=== PATIENT | male | born 1945 | race Caucasian/White ===

== ENCOUNTER 2023-08-09 07:34 | Inpatient (IN) | payer MEDICARE, OTHER ==
--- NOTE | 2023-08-09 07:54 | ED ---
General Adult HPI - General Chief complaint: GI Bleed Stated complaint: GI Bleed Time Seen by Provider: 08/09/23 07:39 Source: patient, EMS, RN notes reviewed Mode of arrival: EMS Limitations: no limitations - History of Present Illness Initial comments: Patient is an 78-year-old male [facility] for coffee-ground emesis. Patient states onset of symptoms was today. Patient has nausea and vomiting, approximately 8 times. Patient states this was dark. Staff at [facility] was concern for coffee-ground emesis and possibly a clot. No known history of similar symptoms previously. Patient denies taking any blood thinners. Patient denies abdominal pain. - Related Data Allergies Allergy/AdvReac Type Severity Reaction Status Date / Time peanut AdvReac Anaphylaxis Verified 08/09/23 07:51 Review of Systems ROS Statement: Those systems with pertinent positive or pertinent negative responses have been documented in the HPI. ROS Other: All systems not noted in ROS Statement are negative. Constitutional: Denies: fever Eyes: Denies: eye pain ENT: Denies: ear pain Respiratory: Denies: cough Cardiovascular: Denies: chest pain Gastrointestinal: Reports: as per HPI Musculoskeletal: Denies: back pain Past Medical History Past Medical History: Hypertension Additional Past Medical History / Comment(s): Parkinsons, CKD History of Any Multi-Drug Resistant Organisms: None Reported Past Surgical History: No Surgical Hx Reported Smoking Status: Former smoker Past Alcohol Use History: None Reported General Exam Limitations: no limitations General appearance: alert, in no apparent distress Head exam: Present: normocephalic Eye exam: Present: normal appearance ENT exam: Present: normal oropharynx Neck exam: Present: normal inspection Respiratory exam: Present: normal lung sounds bilaterally Cardiovascular Exam: Present: regular rate, normal rhythm GI/Abdominal exam: Present: soft. Absent: tenderness Extremities exam: Present: normal inspection Neurological exam: Present: alert Psychiatric exam: Present: flat affect Skin exam: Present: normal color Course Vital Signs 08/09/23 08/09/23 08/09/23 07:39 07:42 08:00 Temperature 97.8 F Pulse Rate 96 96 90 Respiratory 18 20 18 Rate Blood Pressure 163/99 135/76 135/76 O2 Sat by Pulse 90 L 91 L 96 Oximetry 08/09/23 09:00 Temperature Pulse Rate 91 Respiratory 20 Rate Blood Pressure 128/65 O2 Sat by Pulse 97 Oximetry Medical Decision Making - Medical Decision Making Was pt. sent in by a medical professional or institution ([facility] Scott, EPIC CUPID ANALYST, urgent care, hospital, or penitentiary...) When possible be specific @ -Patient does present from nursing facility Did you speak to anyone other than the patient for history (EMS, parent, family, police, friend...)? What history was obtained from this source @ -I did speak with family over the phone and patient is normal care however will remain DNR. Did you review nursing and triage notes (agree or disagree)? Why? @ -I reviewed and agree with nursing and triage notes Were old charts reviewed (outside hosp., previous admission, EMS record, old EKG, old radiological studies, urgent care reports/EKG's, penitentiary records)? Report findings @ -Chart reviewed from nursing facility Differential Diagnosis (chest pain, altered mental status, abdominal pain women, abdominal pain men, vaginal bleeding, weakness, fever, dyspnea, syncope, headache, dizziness, GI bleed, back pain, seizure, CVA, palpatations, mental health, musculoskeletal)? @ -MDM differential GI hemorrhage MDI differential GI Bleed: Esophageal varices, aortoenteric fistula, Ofelia-Jordan, gastritis, peptic ulcer disease, diverticulosis, inflammatory bowel disease, hemorrhoids, fissure, colitis, malignancy, Meckels diverticulum, this is not meant to be an all- inclusive list. EKG interpreted by me (3pts min.). @ -As above X-rays interpreted by me (1pt min.). @ -Chest x-ray shows right lower lobe infiltrate and increased air in the stomach CT interpreted by me (1pt min.). @ -None done U/S interpreted by me (1pt. min.). @ -None done What testing was considered but not performed or refused? (CT, X-rays, U/S, labs)? Why? @ -None What meds were considered but not given or refused? Why? @ -None Did you discuss the management of the patient with other professionals (radha apodaca i.e. [facility] Scott, EPIC CUPID ANALYST, lab, RT, psych nurse, certified social workers in health care, construction driver, teacher, forest officer, catalytic case operator)? Give summary @ -Case was discussed with Dr. De La Fuente who will consult. Case was also discussed with Dr. Ashley who will admit his patient Was smoking cessation discussed for >3mins.? @ -No Was critical care preformed (if so, how long)? @ -No Were there social determinants of health that impacted care today? How? (Homelessness, low income, unemployed, alcoholism, drug addiction, transportat ion, low edu. Level, literacy, decrease access to med. care, correction, rehab)? @ -No Was there de-escalation of care discussed even if they declined (Discuss DNR or withdrawal of care, Hospice)? DNR status @ -No What co-morbidities impacted this encounter? (DM, HTN, Smoking, COPD, CAD, Cancer, CVA, ARF, Chemo, Hep., AIDS, mental health diagnosis, sleep apnea, morbid obesity)? @ -None Was patient admitted / discharged? Hospital course, mention meds given and route, prescriptions, significant lab abnormalities, going to OR and other pertinent info. @ -Patient presents with coffee-ground emesis. Patient will be admitted with surgical consult. Appearance of pneumonia on chest x-ray. Blood culture lactic acid and IV antibiotics all ordered. Rogers orders written. Undiagnosed new problem with uncertain prognosis? @ -No Drug Therapy requiring intensive monitoring for toxicity (Heparin, Nitro, Insulin, Cardizem)? @ -No Were any procedures done? @ -No Diagnosis/symptom? @ -GI hemorrhage, pneumonia Acute, or Chronic, or Acute on Chronic? @ -Acute, acute Uncomplicated (without systemic symptoms) or Complicated (systemic symptoms)? @ -Default Side effects of treatment? @ -No Exacerbation, Progression, or Severe Exacerbation? @ -No Poses a threat to life or bodily function? How? (Chest pain, USA, GA, pneumonia, PE, COPD, DKA, ARF, appy, cholecystitis, CVA, Diverticulitis, Homicidal, Suicidal, threat to staff... and all critical care pts) @ -Threat to blood loss and pulmonary function - Lab Data Result diagrams: 08/09/23 08:05 08/09/23 08:05 Lab Results 08/09/23 08/09/23 08/09/23 Range/Units 08:00 08:05 08:05 WBC 12.1 H (3.8-10.6) k/uL RBC 4.54 (4.30-5.90) m/uL Hgb 12.5 L (13.0-17.5) gm/dL Hct 40.8 (39.0-53.0) % MCV 90.0 (80.0-100.0) fL MCH 27.6 (25.0-35.0) pg MCHC 30.6 L (31.0-37.0) g/dL RDW 13.5 (11.5-15.5) % Plt Count 247 (150-450) k/uL MPV 8.6 Neutrophils % 92 % Lymphocytes % 3 % Monocytes % 4 % Eosinophils % 0 % Basophils % 0 % Neutrophils # 11.1 H (1.3-7.7) k/uL Lymphocytes # 0.4 L (1.0-4.8) k/uL Monocytes # 0.5 (0-1.0) k/uL Eosinophils # 0.0 (0-0.7) k/uL Basophils # 0.0 (0-0.2) k/uL Hypochromasia Slight PT 10.6 (10.0-12.5) sec INR 1.0 (<1.2) APTT 26.0 (22.0-30.0) sec Sodium (137-145) mmol/L Potassium (3.5-5.1) mmol/L Chloride (98-107) mmol/L Carbon Dioxide (22-30) mmol/L Anion Gap mmol/L BUN (9-20) mg/dL Creatinine (0.66-1.25) mg/dL Est GFR (CKD-EPI)AfAm (>60 ml/min/1.73 sqM) Est GFR (CKD-EPI)NonAf (>60 ml/min/1.73 sqM) Glucose (74-99) mg/dL Calcium (8.4-10.2) mg/dL Total Bilirubin (0.2-1.3) mg/dL AST (17-59) U/L ALT (4-49) U/L Alkaline Phosphatase (38-126) U/L Total Protein (6.3-8.2) g/dL Albumin (3.5-5.0) g/dL Gastric Occult Blood (Negative) Blood Type B Positive Blood Type Confirm Blood Type Recheck No Previous Record Bld Type Recheck Status CABO Indicated Antibody Screen NEGATIVE Spec Expiration Date 08/12/2023 - 2305 08/09/23 08/09/23 08/09/23 Range/Units 08:05 08:05 08:30 WBC (3.8-10.6) k/uL RBC (4.30-5.90) m/uL Hgb (13.0-17.5) gm/dL Hct (39.0-53.0) % MCV (80.0-100.0) fL MCH (25.0-35.0) pg MCHC (31.0-37.0) g/dL RDW (11.5-15.5) % Plt Count (150-450) k/uL MPV Neutrophils % % Lymphocytes % % Monocytes % % Eosinophils % % Basophils % % Neutrophils # (1.3-7.7) k/uL Lymphocytes # (1.0-4.8) k/uL Monocytes # (0-1.0) k/uL Eosinophils # (0-0.7) k/uL Basophils # (0-0.2) k/uL Hypochromasia PT (10.0-12.5) sec INR (<1.2) APTT (22.0-30.0) sec Sodium 141 (137-145) mmol/L Potassium 4.9 (3.5-5.1) mmol/L Chloride 109 H (98-107) mmol/L Carbon Dioxide 27 (22-30) mmol/L Anion Gap 5 mmol/L BUN 22 H (9-20) mg/dL Creatinine 0.68 (0.66-1.25) mg/dL Est GFR (CKD-EPI)AfAm >90 (>60 ml/min/1.73 sqM) Est GFR (CKD-EPI)NonAf >90 (>60 ml/min/1.73 sqM) Glucose 126 H (74-99) mg/dL Calcium 8.6 (8.4-10.2) mg/dL Total Bilirubin 0.8 (0.2-1.3) mg/dL AST 32 (17-59) U/L ALT 17 (4-49) U/L Alkaline Phosphatase 90 (38-126) U/L Total Protein 6.8 (6.3-8.2) g/dL Albumin 4.2 (3.5-5.0) g/dL Gastric Occult Blood Positive (Negative) Blood Type Blood Type Confirm B Positive Blood Type Recheck Bld Type Recheck Status Antibody Screen Spec Expiration Date Disposition Clinical Impression: Gastrointestinal hemorrhage, Pneumonia Disposition: ADMITTED IP TO THIS HOSP Condition: Serious Is patient prescribed a controlled substance at d/c from ED?: No Referrals: Han Bueno MD [Primary Care Provider] - 1-2 days Time of Disposition: 09:21
--- NOTE | 2023-08-09 08:39 | XR ---
EXAMINATION TYPE: XR chest 1V portable DATE OF EXAM: 08/09/2023 COMPARISON: None INDICATION: Pain TECHNIQUE: Single frontal view of the chest is obtained. FINDINGS: The heart size is mildly prominent. The pulmonary vasculature is normal. Mild infiltrate at the right base. Correlate for atelectasis or pneumonia. Follow-up is recommended. Stomach may be distended with air IMPRESSION: 1. Right lower lobe infiltrate. Correlate for pneumonia. 2. The stomach appears to be distended with air. Imaging can be performed as clinically indicated.
[2023-08-09 08:42] LABS: ALT 17 U/L (4-49); AST 32 U/L (17-59); African American GFR (CKD) >90 (>60 ml/min/1.73 sqM); Albumin 4.2 g/dL (3.5-5.0); Alkaline Phosphatase 90 U/L (38-126); Anion Gap 5 mmol/L; Blood Urea Nitrogen 22 mg/dL (9-20); Calcium 8.6 mg/dL (8.4-10.2); Carbon Dioxide 27 mmol/L (22-30); Chloride 109 mmol/L (98-107); Glucose 126 mg/dL (74-99); Non-African American GFR(CKD) >90 (>60 ml/min/1.73 sqM); Sodium 141 mmol/L (137-145); Total Bilirubin 0.8 mg/dL (0.2-1.3); Total Protein 6.8 g/dL (6.3-8.2)
[2023-08-09 08:44] LABS: Basophils % (A) 0 %; Eosinophils % (A) 0 %; HCT 40.8 % (39.0-53.0); HGB 12.5 gm/dL (13.0-17.5); Hypochromasia Slight; Lymphocytes # (A) 0.4 k/uL (1.0-4.8); Lymphocytes % (A) 3 %; MCH 27.6 pg (25.0-35.0); MCHC 30.6 g/dL (31.0-37.0); Mean Platelet Volume 8.6; Monocytes # (A) 0.5 k/uL (0-1.0); Monocytes % (A) 4 %; Neutrophils # (A) 11.1 k/uL (1.3-7.7); Neutrophils % (A) 92 %; Platelet Count 247 k/uL (150-450); RBC 4.54 m/uL (4.30-5.90); RDW 13.5 % (11.5-15.5); WBC 12.1 k/uL (3.8-10.6)
[2023-08-09] MEDS: SODIUM CHLORIDE 0.9% 1,000 ML IV STA (08:48)
[2023-08-09] MEDS: PANTOPRAZOLE 40 MG/10 ML VIAL IVP STA (08:48)
[2023-08-09 08:51] LABS: Prothrombin Time 10.6 sec (10.0-12.5)
[2023-08-09 08:59] LABS: Potassium 4.9 mmol/L (3.5-5.1)
[2023-08-09] MEDS ORDERED: PNEUMONIA PROTOCOL UTILIZED 1 EACH MISC PO PRN (09:17)
[2023-08-09 09:42] LABS: Amylase 61 U/L (30-110); Lipase 131 U/L (23-300)
[2023-08-09] MEDS: PANTOPRAZOLE 40 MG/10 ML VIAL IVP SCH (10:59)
[2023-08-09] MEDS: SODIUM CHLORIDE 0.9% 1,000 ML IV SCH (11:01)
[2023-08-09] MEDS: AZITHROMYCIN 500 MG in SODIUM CHLORIDE 0.9% 250 ML IVPB STA (11:02)
--- NOTE | 2023-08-09 11:03 | P.CON ---
Consult Note - . Consult date: 08/09/23 Assessment/Plan:: Patient is an 78-year-old male present to the emergency department from residential for coffee-ground emesis. Patient states onset of symptoms was today. Patient has nausea and vomiting, approximately 8 times. Patient states this was dark. Staff at residential was concern for coffee-ground emesis and possibly a clot. No known history of similar symptoms previously. Patient denies taking any blood thinners. Patient denies abdominal pain. Review of Systems ROS Statement: Those systems with pertinent positive or pertinent negative responses have been documented in the HPI. ROS Other: All systems not noted in ROS Statement are negative. Constitutional: Denies: fever Eyes: Denies: eye pain ENT: Denies: ear pain Respiratory: Denies: cough Cardiovascular: Denies: chest pain Gastrointestinal: Reports: as per HPI Musculoskeletal: Denies: back pain Past Medical History Past Medical History: Hypertension Additional Past Medical History / Comment(s): Parkinsons, CKD History of Any Multi-Drug Resistant Organisms: None Reported Past Surgical History: No Surgical Hx Reported Smoking Status: Former smoker Past Alcohol Use History: None Reported General Exam Limitations: no limitations General appearance: alert, in no apparent distress Head exam: Present: normocephalic Eye exam: Present: normal appearance ENT exam: Present: normal oropharynx Neck exam: Present: normal inspection Respiratory exam: Present: normal lung sounds bilaterally Cardiovascular Exam: Present: regular rate, normal rhythm GI/Abdominal exam: Present: soft. Absent: tenderness Extremities exam: Present: normal inspection Neurological exam: Present: alert Psychiatric exam: Present: flat affect Skin exam: Present: normal color 78 year old male with GI Bleed -Hgb stable. Continue to monitor H/H -Recommend Protonix BID -Will follow in case patient should need endoscopy
--- NOTE | 2023-08-09 15:30 | P.HPIM ---
History of Present Illness H&P Date: 08/09/23 Chief Complaint: Gastrointestinal bleed, intractable nausea vomiting. HISTORY OF PRESENT ILLNESS: 78-year-old who became a new patient seen him at [facility] long-term for the last few weeks with active medical history of Parkinson disease, hypertension, severe osteoarthritis, chronic kidney disease, BPH who also had severe teina pedis and teina of the nail for the last few years. Patient has been doing well up till this morning woke up and had nausea and vomiting over a time for coffee- ground emesis could not stop and become more symptomatic with lightheadedness and dizziness was having slight abdominal pain but no diarrhea with it with the severity of the symptom and coming to the emergency department where was seen and evaluated his CBC shows hemoglobin of 12.5 compared to his baseline his white blood cells mildly elevated, stomach slightly distended but no sign of obstruction rest of his labs including lactic acid lipase and amylase were normal his Hemoccult was positive influenza COVID and RSV were negative. Gener al surgery was called and agreed to do backup for medicine for GI bleed patient be admitted to the hospital CBC to be done every 6-8 hours watch for any more actively antinausea medication will be given might run flat abdominal x-ray to make sure does not have any small bowel obstruction. REVIEW OF SYSTEMS: CONSTITUTIONAL: Well-developed no acute respiratory distress. EYES: No icterus sclerae, no conjunctivitis. EARS, NOSE, MOUTH, THROAT, and FACE: No sore throat, lymphadenopathy, carotid bruits or deformity. RESPIRATORY: No SOB cough or wheezes. CARDIOVASCULAR: No CP, Palpitation, PND, Orthopnea, or angina. GASTROINTESTINAL: Slight abdominal distention with nausea and vomiting no diarrhea positive coffee-ground emesis with no active upper GI bleed. GENITOURINARY: Negative for Hematuria or UTI, no kidney stones. INTEGUMENT/BREAST: Negative for any muscular injury with mild osteoarthritis.. HEMATOLOGIC/LYMPHATIC: Negative for bleed or purpura. MUSCULOSKELTAL: Generalized myalgia and stiffness NEURLOGICAL: Parkinson disease with stiffness overall and mild tremor. BEHAVIORAL/PSYCH: Negative. ENDOCRINE: Negative. Social history: He quit smoking years ago was a smoker for over 20 pack years. Does not drink alcohol, he is does not have any biological children and has been living in alf long-term for the last few weeks. Family history: Both parents in their 80s from most likely heart disease, siblings had PHYSICAL EXAMINATION: General Appearance: Elderly alert, cooperative, no distress, appears stated age. Neck HEENT: Supple, no lymphadenopathy, no thyroid enlargement, no carotid bruits. Lungs: Clear to auscultation without crackles or wheezes no rhonchi, no deformity. Chest Wall: Decreased expansion with deep inspiration no tenderness and no deformity was found on exam, no costochondral pain or discomfort. Heart: Regular rate and rhythm, S1, S2 normal, no murmur, rub or gallop. Back: Symmetric, no curvature, ROM normal, no CVA tenderness. Abdomen: Soft, slightly distended mild discomfort in the epigastric area bowel sounds active all four quadrants, no masses, no organomegaly. Extremities: Extremities normal, atraumatic, no cyanosis or edema. Pulses: 2+ and symmetric. Skin: Skin color, texture, tugor normal, no rashes or lesions. Neurologic: Alert oriented slight confusion cranial nerves II through XII intact, no motor deficit, no abnormal balance or gait. Slightly abnormal tremor. ASSESSMENT AND PLAN: _Acute GI bleed: Most likely lower in origin especially with coffee-ground emesis, watch symptoms carefully CBC will be done every few hours watch for any more active bleeding. General surgery was consulted eventually patient might benefit from doing EGD. Start pantoprazole 40 mg IV. _Acute blood loss anemia: Continue watch hemoglobin from dropping down and transfuse if hemoglobin is below 8. _Parkinsonism: Resume carbidopa levodopa for now. _BPH: With no sign of obstruction remains on finasteride. _Anasarca and edema: Still on Lasix and potassium chloride. _Chronic osteomyelitis apparently patient has been using smaller dose of ibuprofen which has not cause any problem until now. GI prophylaxis: Patient will be on pantoprazole. DVT prophylaxis: Early mobilization knee-high NYA hose. CODE STATUS: Full code. Admit patient to the inpatient service for more than 2 night stay. Past Medical History Past Medical History: Hypertension Additional Past Medical History / Comment(s): Parkinsons, CKD History of Any Multi-Drug Resistant Organisms: None Reported Past Surgical History: No Surgical Hx Reported Smoking Status: Former smoker Past Alcohol Use History: None Reported Medications and Allergies Home Medications Medication Instructions Recorded Confirmed Type Carbidopa-Levodopa 25-100 mg 2 tab PO TID@0800,1400,2100 06/22/24 06/22/24 History [Sinemet 25-100] Finasteride [Proscar] 5 mg PO DAILY@0808/09/23 08/09/23 History Fluconazole 150 mg PO MO@0800 08/09/23 08/09/23 History Furosemide [Lasix] 20 mg PO MOWEFR@0808/09/23 08/09/23 History Magnesium Hydroxide [Milk of 7,200 ml PO DAILY PRN 08/09/23 08/09/23 History Magnesia Concentrate] Na Phos,M-B/Na Phos,Di-Ba [Fleet 133 ml RECTAL DAILY PRN 08/09/23 08/09/23 History Adult] Potassium Chloride ER [K-Dur 10] 10 meq PO MOWEFR@79908/09/23 08/09/23 History Promethazine Hcl Injection Solution 25 mg IM Q6H PRN 08/09/23 08/09/23 History bisacodyL [Dulcolax] 10 mg RECTAL DAILY PRN 08/09/23 08/09/23 History guaiFENesin [guaiFENesin Oral 100 mg PO Q4H PRN 08/09/23 08/09/23 History Solution] lisinopriL [Zestril] 5 mg PO DAILY@0808/09/23 08/09/23 History polyethylene glycoL 3350 [Miralax] 17 gm PO DAILY@0808/09/23 08/09/23 History Allergies Allergy/AdvReac Type Severity Reaction Status Date / Time peanut Allergy Anaphylaxis Verified 08/09/23 09:29 Physical Exam Vitals: Vital Signs Temp Pulse Resp BP Pulse Ox 08/09/23 11:00 89 20 105/72 08/09/23 10:00 88 18 129/62 94 L 08/09/23 09:00 91 20 128/65 97 08/09/23 08:00 90 18 135/76 96 08/09/23 07:42 97.8 F 96 20 135/76 91 L 08/09/23 07:39 96 18 163/99 90 L Intake and Output 08/09/23 08/09/23 08/09/23 06:59 14:59 22:59 Other: Weight 108.862 kg Results CBC & Chem 7: 08/09/23 08:05 08/09/23 08:05 Labs: Abnormal Lab Results - Last 24 Hours (Table) 08/09/23 08/09/23 Range/Units 08:05 08:05 WBC 12.1 H (3.8-10.6) k/uL Hgb 12.5 L (13.0-17.5) gm/dL MCHC 30.6 L (31.0-37.0) g/dL Neutrophils # 11.1 H (1.3-7.7) k/uL Lymphocytes # 0.4 L (1.0-4.8) k/uL Chloride 109 H (98-107) mmol/L BUN 22 H (9-20) mg/dL Glucose 126 H (74-99) mg/dL
[2023-08-09] MEDS: CARBIDOPA-LEVODOPA 25-100 MG 1 EACH TAB PO SCH (15:36)
[2023-08-09 23:51] LABS: HCT 33.7 % (39.0-53.0); Hypochromasia Moderate; MCH 27.7 pg (25.0-35.0); MCHC 29.7 g/dL (31.0-37.0); MCV 93.2 fL (80.0-100.0); Mean Platelet Volume 8.2; Platelet Count 195 k/uL (150-450); RBC 3.61 m/uL (4.30-5.90); RDW 13.4 % (11.5-15.5)
[2023-08-10 07:17] LABS: HCT 32.1 % (39.0-53.0); HGB 10.1 gm/dL (13.0-17.5); Hypochromasia Marked; MCH 29.4 pg (25.0-35.0); MCHC 31.4 g/dL (31.0-37.0); MCV 93.6 fL (80.0-100.0); Mean Platelet Volume 8.8; Platelet Count 193 k/uL (150-450); RBC 3.43 m/uL (4.30-5.90); RDW 13.5 % (11.5-15.5); WBC 6.7 k/uL (3.8-10.6)
--- NOTE | 2023-08-10 07:43 | XR ---
EXAMINATION TYPE: XR chest 1V portable DATE OF EXAM: 08/10/2023 COMPARISON: 08/09/2023 INDICATION: Pneumonia TECHNIQUE: Single frontal view of the chest is obtained. FINDINGS: The heart size is enlarged. The pulmonary vasculature is normal. Linear opacities at the right base. Correlate for atelectasis or pneumonia. IMPRESSION: 1. Right lower lobe infiltrate. Correlate for pneumonia. Differential could include atelectasis. 2. Cardiomegaly
[2023-08-10] MEDS: lisinopriL 5 MG TAB PO SCH (08:34)
[2023-08-10] MEDS: FINASTERIDE 5 MG TAB PO SCH (08:34)
[2023-08-10] MEDS: AZITHROMYCIN 500 MG TAB PO SCH (08:34)
--- NOTE | 2023-08-10 10:37 | P.PN ---
Subjective Progress Note Date: 08/10/23 Principal diagnosis: GI bleed 78-year-old male hospitalized yesterday with hematemesis/coffee-ground emesis. Patient states it was a quarter sized amount of blood that he saw. Patient does not believe he has had episodes like this previously. Hemodynamically he is stable. Hemoglobin 10.1 from 10.0. Denies pain. Objective - Vital Signs Vital signs: Vital Signs Temp 97.7 F 08/10/23 07:01 Pulse 70 08/10/23 07:01 Resp 18 08/10/23 07:01 BP 133/82 08/10/23 07:01 Pulse Ox 95 08/10/23 07:01 FiO2 Intake & Output 08/09/23 08/10/23 08/10/23 18:59 06:59 18:59 Intake Total 200 Output Total 200 Balance 200 -200 Weight 108.862 kg Intake: Oral 200 Output: Urine 200 Other: Voiding Method External Catheter - Exam Abdomen: Soft, nontender, nondistended - Labs CBC & Chem 7: 08/10/23 06:00 08/09/23 08:05 Labs: Abnormal Lab Results - Last 24 Hours (Table) 08/09/23 08/10/23 Range/Units 23:17 06:00 RBC 3.61 L 3.43 L (4.30-5.90) m/uL Hgb 10.0 L D 10.1 L (13.0-17.5) gm/dL Hct 33.7 L 32.1 L (39.0-53.0) % MCHC 29.7 L (31.0-37.0) g/dL Assessment and Plan (1) Gastrointestinal hemorrhage Narrative/Plan: 78-year-old male with admission for GI bleed. Options discussed with patient. Patient is agreeable and would like to proceed with EGD with biopsy and evaluation tomorrow. This will be scheduled. Patient CODE STATUS will be changed for the duration of the procedure to full code. Current Visit: Yes Status: Acute Code(s): K92.2 - GASTROINTESTINAL HEMORR ALYSSIA, UNSPECIFIED SNOMED Code(s): 61555357
--- NOTE | 2023-08-10 10:46 | P.PN ---
Subjective Progress Note Date: 08/10/23 HISTORY OF PRESENT ILLNESS: 78-year-old who became a new patient seen him at [facility] long-term for the last few weeks with active medical history of Parkinson disease, hypertension, severe osteoarthritis, chronic kidney disease, BPH who also had severe teina pedis and teina of the nail for the last few years. Patient has been doing well up till this morning woke up and had nausea and vomiting over a time for coffee- ground emesis could not stop and become more symptomatic with lightheadedness and dizziness was having slight abdominal pain but no diarrhea with it with the severity of the symptom and coming to the emergency department where was seen and evaluated his CBC shows hemoglobin of 12.5 compared to his baseline his white blood cells mildly elevated, stomach slightly distended but no sign of obstruction rest of his labs including lactic acid lipase and amylase were normal his Hemoccult was positive influenza COVID and RSV were negative. [facility] surgery was called and agreed to do backup for medicine for GI bleed patient be admitted to the hospital CBC to be done every 6-8 hours watch for any more actively antinausea medication will be given might run flat abdominal x-ray to make sure does not have any small bowel obstruction. 08/10/2023: Resting comfortably in bed today hemoglobin did not drop much since yesterday he is not in any active bleed anymore, reviewed his chest x-ray for the second time there is a haziness and infiltrate on the right base most likely aspiration from his nausea and vomiting he was initiated on azithromycin and Rocephin will continue but will switch probably azithromycin to doxycycline for better coverage for aspiration pneumonia. Patient is more hungry wants to eat General surgery still on standby there is no need for any urgent procedure if still have any suspicion about might be able to do endoscopy with EGD only for Friday. Will repeat another CBC tomorrow morning the meanwhile continue PPI via IV and initiate feeding back to regular diet. REVIEW OF SYSTEMS: CONSTITUTIONAL: Well-developed no acute respiratory distress. EYES: No icterus sclerae, no conjunctivitis. EARS, NOSE, MOUTH, THROAT, and FACE: No sore throat, lymphadenopathy, carotid bruits or deformity. RESPIRATORY: No SOB cough or wheezes. CARDIOVASCULAR: No CP, Palpitation, PND, Orthopnea, or angina. GASTROINTESTINAL: Slight abdominal distention with nausea and vomiting no diarrhea positive coffee-ground emesis with no active upper GI bleed. GENITOURINARY: Negative for Hematuria or UTI, no kidney stones. INTEGUMENT/BREAST: Negative for any muscular injury with mild osteoarthritis.. HEMATOLOGIC/LYMPHATIC: Negative for bleed or purpura. MUSCULOSKELTAL: Generalized myalgia and stiffness NEURLOGICAL: Parkinson disease with stiffness overall and mild tremor. BEHAVIORAL/PSYCH: Negative. ENDOCRINE: Negative. Social history: He quit smoking years ago was a smoker for over 20 pack years. Does not drink alcohol, he is does not have any biological children and [facility] for the last few weeks. Family history: Both parents in their 80s from most likely heart disease, siblings had PHYSICAL EXAMINATION: General Appearance: Elderly alert, cooperative, no distress, appears stated age. Neck HEENT: Supple, no lymphadenopathy, no thyroid enlargement, no carotid bruits. Lungs: Clear to auscultation without crackles or wheezes no rhonchi, no deformity. Chest Wall: Decreased expansion with deep inspiration no tenderness and no deformity was found on exam, no costochondral pain or discomfort. Heart: Regular rate and rhythm, S1, S2 normal, no murmur, rub or gallop. Back: Symmetric, no curvature, ROM normal, no CVA tenderness. Abdomen: Soft, slightly distended mild discomfort in the epigastric area bowel sounds active all four quadrants, no masses, no organomegaly. Extremities: Extremities normal, atraumatic, no cyanosis or edema. Pulses: 2+ and symmetric. Skin: Skin color, texture, tugor normal, no rashes or lesions. Neurologic: Alert oriented slight confusion cranial nerves II through XII intact, no motor deficit, no abnormal balance or gait. Slightly abnormal tremor. ASSESSMENT AND PLAN: _Acute GI bleed: No further active bleed at this time no significant drop in hemoglobin continue IV Protonix, patient still seen general surgery if continue to have any gout suspicion might do endoscopy with EGD on Friday. _Acute blood loss anemia: No significant drop in hemoglobin still above 10. _ Aspiration Pneumonia: with change on CXR positive will start Rocephin and Doxy along with Duoneb. Continue supportive oxygen if needed. _Parkinsonism: Resume carbidopa levodopa for now. _BPH: With no sign of obstruction remains on finasteride. _Anasarca and edema: Still on Lasix and potassium chloride. _Chronic Osteoarthritis apparently patient has been using smaller dose of ibuprofen which has not cause any problem until now. GI prophylaxis: Patient will be on pantoprazole. CODE STATUS: DO NOT RESUSCITATE. Discussion: Patient is admitted for acute GI bleed with coffee-ground emesis is not having any further bleeding at this time no significant drop in hemoglobin continue to watch CBC daily, seen general surgery no need for any urgent procedure or intervention yet will continue current management repeat CBC tomorrow continue treatment and management for aspiration pneumonia if he is doing well by tomorrow might send him back to [facility] long-term. Objective - Vital Signs Vital signs: Vital Signs Temp 97.7 F 08/10/23 07:01 Pulse 70 08/10/23 07:01 Resp 18 08/10/23 07:01 BP 133/82 08/10/23 07:01 Pulse Ox 95 08/10/23 07:01 FiO2 Intake & Output 08/09/23 08/10/23 08/10/23 18:59 06:59 18:59 Intake Total 200 Output Total 200 Balance 200 -200 Weight 108.862 kg Intake: Oral 200 Output: Urine 200 Other: Voiding Method External Catheter - Labs CBC & Chem 7: 08/10/23 06:00 08/09/23 08:05 Labs: Abnormal Lab Results - Last 24 Hours (Table) 08/09/23 08/10/23 Range/Units 23:17 06:00 RBC 3.61 L 3.43 L (4.30-5.90) m/uL Hgb 10.0 L D 10.1 L (13.0-17.5) gm/dL Hct 33.7 L 32.1 L (39.0-53.0) % MCHC 29.7 L (31.0-37.0) g/dL
[2023-08-11 08:22] LABS: HCT 34.1 % (39.6-50.0); HGB 10.3 g/dL (13.0-17.0); MCH 28.7 pg (27.0-32.0); MCHC 30.2 g/dL (32.0-37.0); NRBC Per 100 WBC 0 X 10*3/uL (0.00-0.01); Platelet Count 206 X 10*3/uL (140-440); RBC 3.59 X 10*6/uL (4.40-5.60); RDW 13.2 % (11.5-14.5); WBC 6.69 X 10*3/uL (4.50-10.00)
[2023-08-11 08:48] LABS: ALT <5 U/L (10-49); AST 15 U/L (14-35); Albumin 3.7 g/dL (3.8-4.9); Albumin/Globulin Ratio 2.06 Ratio (1.60-3.17); Alkaline Phosphatase 91 U/L (41-126); Blood Urea Nitrogen 17.1 mg/dL (9.0-27.0); Calcium 8.1 mg/dL (8.7-10.3); Carbon Dioxide 24.6 mmol/L (21.6-31.8); Chloride 111 mmol/L (96-109); Globulin 1.8 g/dL (1.6-3.3); Glucose 86 mg/dL (70-110); Potassium 4.2 mmol/L (3.5-5.5); Sodium 145 mmol/L (135-145); Total Bilirubin 0.2 mg/dL (0.3-1.2); Total Protein 5.5 g/dL (6.2-8.2)
[2023-08-11] MEDS ORDERED: LIDOCAINE 1% INJ 10MG/ML (20 ML MDV) ONE (09:39)
[2023-08-11] MEDS ORDERED: PROPOFOL 10 MG/ML 20 ML VIAL IV ONE (09:39)
[2023-08-11] MEDS: IV FLUID CONTINUATION 800 ML IV ONE (09:40)
--- NOTE | 2023-08-11 10:07 | P.PCN ---
Date of Procedure: 08/11/23 Procedure(s) Performed: Preoperative Dx: Upper GI bleeding Postoperative Dx: Gastritis, hiatal hernia, erosive distal esophagitis Procedure: EGD with Bx Anesthesia: Sedation Endoscopist: Dr. Nunez Specimens: Antrum, distal esophagus Endoscopic Procedure: The patient was on the endoscopy table in the left decubitus position. The Olympus gastroscope was inserted into the oropharynx and passed under direct visualization to the region of the third portion of the duodenum. From that point the scope was slowly withdrawn inspecting all surfaces carefully. There were no neoplastic inflammatory or polypoid lesions throughout the duodenum. The pylorus was widely patent. The stomach was carefully inspected. There was mild gastritis present in the prepyloric region with a few small superficial erosions present. Biopsies were taken. Retroflexion revealed a small hiatal hernia. The distal esophagus had circumferential inflammatory changes consistent with moderate to severe reflux esophagitis. Multiple linear erosions were present. These were noncircumferential. These measured about 3 to 4 cm in length. Biopsies were taken of that area. The remainder the esophagus in the mid and proximal esophagus appeared normal. Recommendations: Resume diet. Continue antiacid therapy. Suspect site of bleeding related to esophagitis. Await biopsies.
[2023-08-11] MEDS: FUROSEMIDE 20 MG TAB PO SCH (10:18)
[2023-08-11] MEDS: POTASSIUM CHLORIDE ER 10 MEQ TAB.ER.PRT PO SCH (10:18)
[2023-08-11 16:00] VITALS: RESP 18
--- NOTE | 2023-08-11 22:57 | P.PN ---
Subjective Progress Note Date: 08/11/23 HISTORY OF PRESENT ILLNESS: 78-year-old who became a new patient seen him at [facility] long-term for the last few weeks with active medical history of Parkinson disease, hypertension, severe osteoarthritis, chronic kidney disease, BPH who also had severe teina pedis and teina of the nail for the last few years. Patient has been doing well up till this morning woke up and had nausea and vomiting over a time for coffee- ground emesis could not stop and become more symptomatic with lightheadedness and dizziness was having slight abdominal pain but no diarrhea with it with the severity of the symptom and coming to the emergency department where was seen and evaluated his CBC shows hemoglobin of 12.5 compared to his baseline his white blood cells mildly elevated, stomach slightly distended but no sign of obstruction rest of his labs including lactic acid lipase and amylase were normal his Hemoccult was positive influenza COVID and RSV were negative. [facility] surgery was called and agreed to do backup for medicine for GI bleed patient be admitted to the hospital CBC to be done every 6-8 hours watch for any more actively antinausea medication will be given might run flat abdominal x-ray to make sure does not have any small bowel obstruction. 08/10/2023: Resting comfortably in bed today hemoglobin did not drop much since yesterday he is not in any active bleed anymore, reviewed his chest x-ray for the second time there is a haziness and infiltrate on the right base most likely aspiration from his nausea and vomiting he was initiated on azithromycin and Rocephin will continue but will switch probably azithromycin to doxycycline for better coverage for aspiration pneumonia. Patient is more hungry wants to eat General surgery still on standby there is no need for any urgent procedure if still have any suspicion about might be able to do endoscopy with EGD only for Friday. Will repeat another CBC tomorrow morning the meanwhile continue PPI via IV and initiate feeding back to regular diet. 08/07/2023: Patient continued to have slight rectal bleeding bright red blood He was seen Dr. Good and scheduled to go for elective EGD without colonoscopy. Based on the results we will decide on further management in the meanwhile continue to watch CBC again every 8 hours hemoglobin has not dropped much despite still active GI bleed. If complete upper gastroscopy and found an answer hemoglobin still stable hopefully will be discharged back to [facility] in the next 24 hours. REVIEW OF SYSTEMS: CONSTITUTIONAL: Well-developed no acute respiratory distress. EYES: No icterus sclerae, no conjunctivitis. EARS, NOSE, MOUTH, THROAT, and FACE: No sore throat, lymphadenopathy, carotid bruits or deformity. RESPIRATORY: No SOB cough or wheezes. CARDIOVASCULAR: No CP, Palpitation, PND, Orthopnea, or angina. GASTROINTESTINAL: Slight abdominal distention with nausea and vomiting no diarrhea positive coffee-ground emesis with no active upper GI bleed. GENITOURINARY: Negative for Hematuria or UTI, no kidney stones. INTEGUMENT/BREAST: Negative for any muscular injury with mild osteoarthritis.. HEMATOLOGIC/LYMPHATIC: Negative for bleed or purpura. MUSCULOSKELTAL: Generalized myalgia and stiffness NEURLOGICAL: Parkinson disease with stiffness overall and mild tremor. BEHAVIORAL/PSYCH: Negative. ENDOCRINE: Negative. Social history: He quit smoking years ago was a smoker for over 20 pack years. Does not drink alcohol, he is does not have any biological children and has [facility] for the last few weeks. Family history: Both parents in their 80s from most likely heart disease, siblings had PHYSICAL EXAMINATION: General Appearance: Elderly alert, cooperative, no distress, appears stated age. Neck HEENT: Supple, no lymphadenopathy, no thyroid enlargement, no carotid bruits. Lungs: Clear to auscultation without crackles or wheezes no rhonchi, no deformity. Chest Wall: Decreased expansion with deep inspiration no tenderness and no deformity was found on exam, no costochondral pain or discomfort. Heart: Regular rate and rhythm, S1, S2 normal, no murmur, rub or gallop. Back: Symmetric, no curvature, ROM normal, no CVA tenderness. Abdomen: Soft, slightly distended mild discomfort in the epigastric area bowel sounds active all four quadrants, no masses, no organomegaly. Extremities: Extremities normal, atraumatic, no cyanosis or edema. Pulses: 2+ and symmetric. Skin: Skin color, texture, tugor normal, no rashes or lesions. Neurologic: Alert oriented slight confusion cranial nerves II through XII intact, no motor deficit, no abnormal balance or gait. Slightly abnormal tremor. ASSESSMENT AND PLAN: _Acute GI bleed: Still on IV Protonix, EGD is planned to be done this morning w ith Dr. Boutt with no further active bleed patient will be processed to go back tomorrow. _Acute blood loss anemia: No need for any transfusion. _ Aspiration Pneumonia: with change on CXR positive will start Rocephin and Doxy along with Duoneb. Continue supportive oxygen if needed. Positive chest x-ray will continue Rocephin until his discharge will be discharged on Ceftin 500 mg twice a day. _Parkinsonism: Resume carbidopa levodopa for now. Much more stable and doing well. _BPH: With no sign of obstruction remains on finasteride. _Anasarca and edema: Still on Lasix and potassium chloride. Much better swelling being in bed. _Chronic Osteoarthritis apparently patient has been using smaller dose of ibuprofen which has not cause any problem until now. CODE STATUS: DO NOT RESUSCITATE. Discussion: He developed to have still some bright red blood per rectum and red color when wiping himself after bowel movement. Symptoms may be consistent with hemorrhoid but with black coffee-ground emesis and early EGD will become necessity. Discharge planning: Most likely be discharged back tomorrow with tomorrow. Objective - Vital Signs Vital signs: Vital Signs Temp 97.8 F 08/11/23 02:00 Pulse 73 08/11/23 02:00 Resp 15 08/10/23 20:00 BP 134/75 08/11/23 02:00 Pulse Ox 93 L 08/11/23 02:00 FiO2 Intake & Output 08/10/23 08/11/23 08/11/23 18:59 06:59 18:59 Output Total 600 450 Balance -600 -450 Output: Urine 600 450 Other: Voiding Method External Catheter External Catheter - Labs CBC & Chem 7: 08/11/23 04:53 08/11/23 04:53 Labs: Microbiology - Last 24 Hours (Table) 08/09/23 09:45 Blood Culture - Preliminary Blood 08/09/23 09:30 Blood Culture - Preliminary Blood
--- NOTE | 2023-08-12 06:08 | P.PN ---
Subjective Progress Note Date: 08/12/23 HISTORY OF PRESENT ILLNESS: 78-year-old who became a new patient seen him at [facility] long-term for the last few weeks with active medical history of Parkinson disease, hypertension, severe osteoarthritis, chronic kidney disease, BPH who also had severe teina pedis and teina of the nail for the last few years. Patient has been doing well up till this morning woke up and had nausea and vomiting over a time for coffee- ground emesis could not stop and become more symptomatic with lightheadedness and dizziness was having slight abdominal pain but no diarrhea with it with the severity of the symptom and coming to the emergency department where was seen and evaluated his CBC shows hemoglobin of 12.5 compared to his baseline his white blood cells mildly elevated, stomach slightly distended but no sign of obstruction rest of his labs including lactic acid lipase and amylase were normal his Hemoccult was positive influenza COVID and RSV were negative. [facility] surgery was called and agreed to do backup for medicine for GI bleed patient be admitted to the hospital CBC to be done every 6-8 hours watch for any more actively antinausea medication will be given might run flat abdominal x-ray to make sure does not have any small bowel obstruction. 08/10/2023: Resting comfortably in bed today hemoglobin did not drop much since yesterday he is not in any active bleed anymore, reviewed his chest x-ray for the second time there is a haziness and infiltrate on the right base most likely aspiration from his nausea and vomiting he was initiated on azithromycin and Rocephin will continue but will switch probably azithromycin to doxycycline for better coverage for aspiration pneumonia. Patient is more hungry wants to eat General surgery still on standby there is no need for any urgent procedure if still have any suspicion about might be able to do endoscopy with EGD only for Friday. Will repeat another CBC tomorrow morning the meanwhile continue PPI via IV and initiate feeding back to regular diet. 08/11/2023: Patient continued to have slight rectal bleeding bright red blood He was seen Dr. Good and scheduled to go for elective EGD without colonoscopy. Based on the results we will decide on further management in the meanwhile continue to watch CBC again every 8 hours hemoglobin has not dropped much despite still active GI bleed. If complete upper gastroscopy and found an answer hemoglobin still stable hopefully will be discharged back to [facility] in the next 24 hours. 08/12/2023: Patient is resting comfortably had no further signs and symptoms, no bleed and no tarry stool no coffee-ground emesis. Hemoglobin is stable. His EGD from yesterday showed mild esophagitis in the distal area with margin of 3 cm irritation from most likely GERD over long period of time. Biopsies were taking patient is not in any active bleed at this point. Patient still being treated for nitrite infection most likely prostatitis with ceftriaxone. Will be sent to [facility] on Ceftin for 5 more days. He is very stable to be discharged today patient be evaluated in going back tomorrow today. REVIEW OF SYSTEMS: CONSTITUTIONAL: Well-developed no acute respiratory distress. EYES: No icterus sclerae, no conjunctivitis. EARS, NOSE, MOUTH, THROAT, and FACE: No sore throat, lymphadenopathy, carotid bruits or deformity. RESPIRATORY: No SOB cough or wheezes. CARDIOVASCULAR: No CP, Palpitation, PND, Orthopnea, or angina. GASTROINTESTINAL: Slight abdominal distention with nausea and vomiting no di arrhea positive coffee-ground emesis with no active upper GI bleed. GENITOURINARY: Negative for Hematuria or UTI, no kidney stones. INTEGUMENT/BREAST: Negative for any muscular injury with mild osteoarthritis.. HEMATOLOGIC/LYMPHATIC: Negative for bleed or purpura. MUSCULOSKELTAL: Generalized myalgia and stiffness NEURLOGICAL: Parkinson disease with stiffness overall and mild tremor. BEHAVIORAL/PSYCH: Negative. ENDOCRINE: Negative. Social history: He quit smoking years ago was a smoker for over 20 pack years. Does not drink alcohol, he is does not have any biological children and has [facility] for the last few weeks. Family history: Both parents in their 80s from most likely heart disease, siblings had PHYSICAL EXAMINATION: General Appearance: Elderly alert, cooperative, no distress, appears stated age. Neck HEENT: Supple, no lymphadenopathy, no thyroid enlargement, no carotid bruits. Lungs: Clear to auscultation without crackles or wheezes no rhonchi, no deformity. Chest Wall: Decreased expansion with deep inspiration no tenderness and no deformity was found on exam, no costochondral pain or discomfort. Heart: Regular rate and rhythm, S1, S2 normal, no murmur, rub or gallop. Back: Symmetric, no curvature, ROM normal, no CVA tenderness. Abdomen: Soft, slightly distended mild discomfort in the epigastric area bowel sounds active all four quadrants, no masses, no organomegaly. Extremities: Extremities normal, atraumatic, no cyanosis or edema. Pulses: 2+ and symmetric. Skin: Skin color, texture, tugor normal, no rashes or lesions. Neurologic: Alert oriented slight confusion cranial nerves II through XII i ntact, no motor deficit, no abnormal balance or gait. Slightly abnormal tremor. ASSESSMENT AND PLAN: _Acute GI bleed: Still on IV Protonix, EGD is planned to be done this morning with Dr. Nunez with no further active bleed patient will be processed to go back tomorrow. _Acute blood loss anemia: No need for any transfusion. _ Aspiration Pneumonia: with change on CXR positive will start Rocephin and Doxy along with Duoneb. Continue supportive oxygen if needed. Positive chest x-ray will continue Rocephin until his discharge will be discharged on Ceftin 500 mg twice a day. _Parkinsonism: Resume carbidopa levodopa for now. Much more stable and doing well. _BPH: With no sign of obstruction remains on finasteride. _Anasarca and edema: Still on Lasix and potassium chloride. Much better swelling being in bed. _Chronic Osteoarthritis apparently patient has been using smaller dose of ibuprofen which has not cause any problem until now. CODE STATUS: DO NOT RESUSCITATE. Discussion: He developed to have still some bright red blood per rectum and red color when wiping himself after bowel movement. Symptoms may be consistent with hemorrhoid but with black coffee-ground emesis and early EGD will become necessity. Discharge planning: Will be discharged back to [facility] on 08/12/2023. Objective - Vital Signs Vital signs: Vital Signs Temp 97.6 F 08/12/23 02:01 Pulse 53 L 08/12/23 02:01 Resp 18 08/12/23 02:01 BP 158/82 08/12/23 02:01 Pulse Ox 94 L 08/12/23 02:01 FiO2 Intake & Output 08/11/23 08/11/23 08/12/23 06:59 18:59 06:59 Intake Total 100 Output Total 450 1400 Balance -450 -1300 Intake: IV 100 Output: Urine 450 1400 Other: Voiding Method External Catheter External Catheter External Catheter - Labs CBC & Chem 7: 08/11/23 04:53 08/11/23 04:53 Labs: Abnormal Lab Results - Last 24 Hours (Table) 08/11/23 08/11/23 Range/Units 04:53 04:53 RBC 3.59 L (4.40-5.60) X 10*6/uL Hgb 10.3 L (13.0-17.0) g/dL Hct 34.1 L (39.6-50.0) % MCHC 30.2 L (32.0-37.0) g/dL Chloride 111 H (96-109) mmol/L Calcium 8.1 L (8.7-10.3) mg/dL Total Bilirubin 0.2 L (0.3-1.2) mg/dL ALT <5 L (10-49) U/L Total Protein 5.5 L (6.2-8.2) g/dL Albumin 3.7 L (3.8-4.9) g/dL Microbiology - Last 24 Hours (Table) 08/09/23 09:45 Blood Culture - Preliminary Blood 08/09/23 09:30 Blood Culture - Preliminary Blood
--- NOTE | 2023-08-12 07:28 | P.DS ---
Providers Date of admission: 08/09/23 09:17 Attending physician: Han Bueno Consults: 08/11/23 08:02 Consult Physician Routine Consulting Provider: Petar Nunez Consult Reason/Comments: GIB Do you want consulting provider notified?: Already Contacted Primary care physician: Han Bueno [facility] Course: HISTORY OF PRESENT ILLNESS: 78-year-old who became a new patient seen him at [facility] long-term for the last few weeks with active medical history of Parkinson disease, hypertension, severe osteoarthritis, chronic kidney disease, BPH who also had severe teina pedis and teina of the nail for the last few years. Patient has been doing well up till this morning woke up and had nausea and vomiting over a time for coffee- ground emesis could not stop and become more symptomatic with lightheadedness and dizziness was having slight abdominal pain but no diarrhea with it with the severity of the symptom and coming to the emergency department where was seen and evaluated his CBC shows hemoglobin of 12.5 compared to his baseline his white blood cells mildly elevated, stomach slightly distended but no sign of obstruction rest of his labs including lactic acid lipase and amylase were normal his Hemoccult was positive influenza COVID and RSV were negative. General surgery was called and agreed to do backup for medicine for GI bleed patient be admitted to the hospital CBC to be done every 6-8 hours watch for any more actively antinausea medication will be given might run flat abdominal x-ray to make sure does not have any small bowel obstruction. 08/10/2023: Resting comfortably in bed today hemoglobin did not drop much since yesterday he is not in any active bleed anymore, reviewed his chest x-ray for the second time there is a haziness and infiltrate on the right base most likely aspiration from his nausea and vomiting he was initiated on azithromycin and Rocephin will continue but will switch probably azithromycin to doxycycline for better coverage for aspiration pneumonia. Patient is more hungry wants to eat General surgery still on standby there is no need for any urgent procedure if still have any suspicion about might be able to do endoscopy with EGD only for Friday. Will repeat another CBC tomorrow morning the meanwhile continue PPI via IV and initiate feeding back to regular diet. 08/11/2023: Patient continued to have slight rectal bleeding bright red blood He was seen Dr. Good and scheduled to go for elective EGD without colonoscopy. Based on the results we will decide on further management in the meanwhile continue to watch CBC again every 8 hours hemoglobin has not dropped much despite still active GI bleed. If complete upper gastroscopy and found an answer hemoglobin still stable hopefully will be discharged back to [facility] in the next 24 hours. 08/12/2023: Patient is resting comfortably had no further signs and symptoms, no bleed and no tarry stool no coffee-ground emesis. Hemoglobin is stable. His EGD from yesterday showed mild esophagitis in the distal area with margin of 3 cm irritation from most likely GERD over long period of time. Biopsies were taking patient is not in any active bleed at this point. Patient still being treated for nitrite infection most likely prostatitis with ceftriaxone. Will be sent to [facility] on Ceftin for 5 more days. He is very stable to be discharged today patient be evaluated in going back tomorrow today. REVIEW OF SYSTEMS: CONSTITUTIONAL: Well-developed no acute respiratory distress. EYES: No icterus sclerae, no conjunctivitis. EARS, NOSE, MOUTH, THROAT, and FACE: No sore throat, lymphadenopathy, carotid bruits or deformity. RESPIRATORY: No SOB cough or wheezes. CARDIOVASCULAR: No CP, Palpitation, PND, Orthopnea, or angina. GASTROINTESTINAL: Slight abdominal distention with nausea and vomiting no diarrhea positive coffee-ground emesis with no active upper GI bleed. GENITOURINARY: Negative for Hematuria or UTI, no kidney stones. INTEGUMENT/BREAST: Negative for any muscular injury with mild osteoarthritis.. HEMATOLOGIC/LYMPHATIC: Negative for bleed or purpura. MUSCULOSKELTAL: Generalized myalgia and stiffness NEURLOGICAL: Parkinson disease with stiffness overall and mild tremor. BEHAVIORAL/PSYCH: Negative. ENDOCRINE: Negative. Social history: He quit smoking years ago was a smoker for over 20 pack years. Does not drink alcohol, he is does not have any biological children and has been living in care home long-term for the last few weeks. Family history: Both parents in their 80s from most likely heart disease, siblings had PHYSICAL EXAMINATION: General Appearance: Elderly alert, cooperative, no distress, appears stated age. Neck HEENT: Supple, no lymphadenopathy, no thyroid enlargement, no carotid bruits. Lungs: Clear to auscultation without crackles or wheezes no rhonchi, no deformity. Chest Wall: Decreased expansion with deep inspiration no tenderness and no deformity was found on exam, no costochondral pain or discomfort. Heart: Regular rate and rhythm, S1, S2 normal, no murmur, rub or gallop. Back: Symmetric, no curvature, ROM normal, no CVA tenderness. Abdomen: Soft, slightly distended mild discomfort in the epigastric area bowel sounds active all four quadrants, no masses, no organomegaly. Extremities: Extremities normal, atraumatic, no cyanosis or edema. Pulses: 2+ and symmetric. Skin: Skin color, texture, tugor normal, no rashes or lesions. Neurologic: Alert oriented slight confusion cranial nerves II through XII intact, no motor deficit, no abnormal balance or gait. Slightly abnormal tremor. ASSESSMENT AND PLAN: _Acute GI bleed: Still on IV Protonix, EGD is planned to be done this morning with Dr. Nunez with no further active bleed patient will be processed to go back tomorrow. _Acute blood loss anemia: No need for any transfusion. _ Aspiration Pneumonia: with change on CXR positive will start Rocephin and Doxy along with Duoneb. Continue supportive oxygen if needed. Positive chest x-ray will continue Rocephin until his discharge will be discharged on Ceftin 500 mg twice a day. _Parkinsonism: Resume carbidopa levodopa for now. Much more stable and doing well. _BPH: With no sign of obstruction remains on finasteride. _Anasarca and edema: Still on Lasix and potassium chloride. Much better swelling being in bed. _Chronic Osteoarthritis apparently patient has been using smaller dose of ibuprofen which has not cause any problem until now. CODE STATUS: DO NOT RESUSCITATE. Discussion: He developed to have still some bright red blood per rectum and red color when wiping himself after bowel movement. Symptoms may be consistent with hemorrhoid but with black coffee-ground emesis and early EGD will become necessity. Discharge planning: Will be discharged back to [facility] on 08/12/2023. Hospital course: Patient was sent to the emergency department On 08/09/2023 because of coffee- ground emesis and intractable nausea and vomiting for about 5 times straight did not stop. Patient found to have low-grade anemia with hemoglobin drop down to 10.0, gastric occult for blood was positive the patient just lidocaine was mildly dehydrated with mildly elevated blood sugar. He was medically cleared and follow-up with general surgery because no coverage or gastroenterology. Decision was to plan to do an EGD to make sure patient is not having any upper gastro bleed. Hemoglobin for the following 2 days was remained stable. Sadly with his severity of nausea and vomiting become slightly red symptomatic with mild cough and shortness of breath chest x-ray came back positive for aspiration pneumonia the patient was initiated on Rocephin and doxycycline. Will continue medication during his hospitalization he will be sent on doxycycline for 4 more days of the week. His EGD came back with severe erosive gastritis distal esophagitis from severity of GERD Patient otherwise is doing well no further bleeding was found implant failure knee is stable to be discharged back tomorrow with manage today will continue on proton pump inhibitor for the next 90 days. Also patient be continued to be treated for aspiration pneumonia with doxycycline for 5 more days. Patient Condition at Discharge: Serious Plan - Discharge Summary Discharge Rx Participant: No New Discharge Prescriptions: New cefUROXime axetiL [Cefuroxime] 500 mg PO BID #10 tab Omeprazole [PriLOSEC] 20 mg PO AC-BRKFST #90 cap Continue Promethazine Hcl Injection Solution 25 mg IM Q6H PRN PRN Reason: Nausea And Vomiting Na Phos,M-B/Na Phos,Di-Ba [Fleet Adult] 133 ml RECTAL DAILY PRN PRN Reason: Constipation lisinopriL [Zestril] 5 mg PO DAILY@0800 Potassium Chloride ER [K-Dur 10] 10 meq PO MOWEFR@0800 Carbidopa-Levodopa 25-100 mg [Sinemet 25-100 mg] 2 tab PO TID@0800,1400,2100 Furosemide [Lasix] 20 mg PO MOWEFR@0800 Finasteride [Proscar] 5 mg PO DAILY@0800 bisacodyL [Dulcolax] 10 mg RECTAL DAILY PRN PRN Reason: Constipation Magnesium Hydroxide [Milk of Magnesia Concentrate] 7,200 ml PO DAILY PRN PRN Reason: Constipation polyethylene glycoL 3350 [Miralax] 17 gm PO DAILY@0800 Fluconazole 150 mg PO MO@0800 guaiFENesin [guaiFENesin Oral Solution] 100 mg PO Q4H PRN PRN Reason: Cough Discharge Medication List Carbidopa-Levodopa 25-100 mg [Sinemet 25-100 mg] 2 tab PO TID@0800,1400,2100 08/09/23 [History] Finasteride [Proscar] 5 mg PO DAILY@0808/09/23 [History] Fluconazole 150 mg PO MO@0808/09/23 [History] Furosemide [Lasix] 20 mg PO MOWEFR@0808/09/23 [History] Magnesium Hydroxide [Milk of Magnesia Concentrate] 7,200 ml PO DAILY PRN 08/09/23 [History] Na Phos,M-B/Na Phos,Di-Ba [Fleet Adult] 133 ml RECTAL DAILY PRN 08/09/23 [History] Potassium Chloride ER [K-Dur 10] 10 meq PO MOWEFR@79908/09/23 [History] Promethazine Hcl Injection Solution 25 mg IM Q6H PRN 08/09/23 [History] bisacodyL [Dulcolax] 10 mg RECTAL DAILY PRN 08/09/23 [History] guaiFENesin [guaiFENesin Oral Solution] 100 mg PO Q4H PRN 08/09/23 [History] lisinopriL [Zestril] 5 mg PO DAILY@0808/09/23 [History] polyethylene glycoL 3350 [Miralax] 17 gm PO DAILY@79908/09/23 [History] Omeprazole [PriLOSEC] 20 mg PO AC-BRKFST #90 cap 08/11/23 [Rx] cefUROXime axetiL [Cefuroxime] 500 mg PO BID #10 tab 08/12/23 [Rx] Follow up Appointment(s)/Referral(s): Han Bueno MD [Primary Care Provider] - 1-2 days Discharge Disposition: TRANSFER TO SNF/ECF
[2023-08-12 08:03] VITALS: BP 130/80; PULSE 86; TEMP 98.5
--- NOTE | 2023-08-12 11:08 | P.PN ---
Subjective Progress Note Date: 08/12/23 CHIEF COMPLAINT: Upper GI bleed HISTORY OF PRESENT ILLNESS: Patient is status post EGD with biopsy with results reporting gastritis, hiatal hernia and erosive distal esophagitis. Patient denies any abdominal pain. Denies any vomiting. Denies any black stool or blood in his stools. Hemoglobin stable at 10.3 patient scheduled for discharge today PHYSICAL EXAM: VITAL SIGNS: Reviewed. GENERAL: Well-developed in no acute distress. ABDOMEN: Soft. Nondistended. Nontender. ASSESSMENT: 1. Upper GI bleed status post EGD reporting hiatal hernia, gastritis and erosive distal esophagitis. Suspected site of bleeding related to esophagitis PLAN: -Agree with discharge plans -Continue PPI -Follow-up on biopsy results Physician [employer] note has been reviewed by physician. Signing provider agrees with the documented findings, assessment, and plan of care. Objective - Vital Signs Vital signs: Vital Signs Temp 98.5 F 08/12/23 07:09 Pulse 86 08/12/23 07:09 Resp 18 08/12/23 08:00 BP 130/80 08/12/23 07:09 Pulse Ox 93 L 08/12/23 07:09 FiO2 Intake & Output 08/11/23 08/12/23 08/12/23 18:59 06:59 18:59 Intake Total 100 120 Output Total 2674 508 3439 Balance -1208 -725 -000 Intake: IV 100 Oral 120 Output: Urine 8455 058 4012 Other: Voiding Method External Catheter External Catheter External Catheter - Labs CBC & Chem 7: 08/11/23 04:53 08/11/23 04:53 Labs: Microbiology - Last 24 Hours (Table) 08/09/23 09:45 Blood Culture - Preliminary Blood 08/09/23 09:30 Blood Culture - Preliminary Blood
== END 2023-08-12 11:41 | DRG 368 ==
LOC: EC 07:34 → 5NMEDONC 09:17 → 4SSUR 12:42
PROVIDERS: ADMIT Internal Medicine Geriatric Medicine; ATTEND Internal Medicine Geriatric Medicine
PROC: 0DB78ZX Excision of Stomach, Pylorus, Via Natural or Artificial Opening Endoscopic, Diagnostic (ICD-10-PCS; principal; 2023-08-11 08:05)
PROC: 0DB38ZX Excision of Lower Esophagus, Via Natural or Artificial Opening Endoscopic, Diagnostic (ICD-10-PCS; principal; 2023-08-11 08:05)
DX: K21.01 Gastro-esophageal reflux disease with esophagitis, with bleeding (principal); J69.0 Pneumonitis due to inhalation of food and vomit; D62 Acute posthemorrhagic anemia; K62.5 Hemorrhage of anus and rectum; K44.9 Diaphragmatic hernia without obstruction or gangrene; I12.9 Hypertensive chronic kidney disease with stage 1 through stage 4 chronic kidney disease, or unspecified chronic kidney disease; N18.9 Chronic kidney disease, unspecified; G20.A1 Parkinson's disease without dyskinesia, without mention of fluctuations; R60.1 Generalized edema; Z66 Do not resuscitate; E86.0 Dehydration; N41.9 Inflammatory disease of prostate, unspecified; K29.60 Other gastritis without bleeding; N40.0 Benign prostatic hyperplasia without lower urinary tract symptoms; M19.90 Unspecified osteoarthritis, unspecified site; Z87.891 Personal history of nicotine dependence; Z79.899 Other long term (current) drug therapy
CPT/HCPCS: 36415; 43239; 71045; 80053; 82150; 82271; 83605; 83690; 85025; 85027; 85610; 85730; 86850; 86900; 86901; 87040; 87449; 87636; 88305; 96361; 96365; 96366; 96375; 96376; 99285

== ENCOUNTER → 2023-09-24 | Outpatient (CLI) | payer MEDICARE, OTHER | END | disposition E | LOC: LABPRL 13:00 | PROVIDERS: ATTEND Internal Medicine Geriatric Medicine | DX: N39.0 Urinary tract infection, site not specified (principal); F22 Delusional disorders | CPT/HCPCS: 81003; 87077; 87086; 87186 ==

== ENCOUNTER → 2023-10-06 | Outpatient (CLI) | payer MEDICARE, OTHER | END | disposition E | LOC: LABPRL 05:10 | PROVIDERS: ATTEND Internal Medicine Geriatric Medicine | CPT/HCPCS: 84481 ==

== ENCOUNTER 2023-10-10 10:43 | Emergency (ER) | payer MEDICARE, OTHER ==
[2023-10-10] MEDS ORDERED: ACETAMINOPHEN TAB 500 MG TAB ONE (12:58)
[2023-10-10] MEDS ORDERED: SODIUM CHLORIDE 0.9% 500 ML BAG ONE (13:03)
[2023-10-10] MEDS ORDERED: DEXTROSE 50% SYRINGE 50 ML IVP ONE (14:47)
--- NOTE | 2023-10-29 06:32 | CT ---
Patient: Albin Roland Ordering Physician: Unknown, Unknown ID: [id number] Phone, Pager: Phone: N/A Pager: N/A : 1945 Age/Gender: 78Y, M Primary Location: N/A Procedure: CT brain wo con Study Date: 10/10/2023 4:19:00 PM EXAMINATION TYPE: CT brain wo con DATE OF EXAM: 10/10/2023 COMPARISON: None HISTORY: 78-year-old male altered mental status, confusion, syncope TECHNIQUE: Examination was done in axial plane without intravenous contrast. Coronal and sagittal r econstructions performed. CT DLP: 1768.4 mGycm Automated exposure control for dose reduction was used. FINDINGS: There is no evidence of acute intracranial hemorrhage, acute ischemic changes, mass, mass-effect, or extra-axial fluid collection. There is no effacement of cerebral sulci or basal subarachnoid cister ns. There is no midline shift. Roca-white matter distinction is preserved. Moderate generalized supratentorial volume loss. However, there is ventriculomegaly with Olegario's ratio calculated at 0.36, out of proportion to the degree of cortical atrophy. Moderate confluent white ma tter hypodensities in both cervical hemispheres. Leftward nasal septal deviation. Scattered mild mucosal thickening ethmoid air cells. Mastoid air pearl ls well pneumatized. Orbits and globes are intact. Cerumen in the bilateral external auditory canals. IMPRESSION: 1. Mild hydrocephalus out of proportion to the degree of cortical atrophy. Correlate to exclude a com ponent of NPH. 2. Moderate confluent burden of chronic small vessel ischemic disease. Otherwise, no acute intracrani al abnormality seen.
--- NOTE | 2023-10-29 06:32 | CT ---
Patient: Albin Roland Ordering Physician: Unknown, Unknown ID: [id number] Phone, Pager: Phone: N/A Pager: N/A : 1945 Age/Gender: 78Y, M Primary Location: N/A Procedure: CT angio head neck Study Date: 10/10/2023 4:19:00 PM EXAMINATION TYPE: CTA head and neck DATE OF EXAM: 10/10/2023 COMPARISON: CT brain same day HISTORY: 78-year-old male altered mental status, confusion, syncope TECHNIQUE: Contiguous axial scanning of the head and neck performed with IV Contrast, patient injecte d with 65 mL of Isovue 370. Coronal/sagittal reconstructions performed. 3-D reconstructions generated on a dedicated independent workstation. CT DLP: 1768.4 mGycm Automated exposure control for dose reduction was used. FINDINGS: Neck: Mild emphysematous changes in the upper lungs with scattered mild pleural parenchymal scarring. Moder ately large caliber main right and the pulmonary arteries up to 2.6 cm may be seen with pulmonary hyp ertension. Conventional arch vessel branching anatomy. Tortuous brachiocephalic artery. Dominant left vertebral artery. Otherwise, both vertebral arteries appear patent throughout the cours e The bilateral common carotid arteries are patent. Mild atelectatic calcification of the bilateral carotid bulbs without any significant narrowing. NASCET criteria is utilized. Moderate to advanced spondylotic change mid to lower cervical spine. Head: Dominant left vertebral artery. Otherwise, both vertebral and basilar arteries as well as the remain shwetha of the posterior circulation is patent. Minimal atherosclerotic calcifications in the bilateral carotid siphons. Both internal carotid arteri es as well as the remainder of the anterior circulation is patent. No aneurysmal change is seen. IMPRESSION: NECK: 1. DOMINANT LEFT VERTEBRAL ARTERY. 2. ONLY MINIMAL ATHEROSCLEROTIC CALCIFICATIONS AT THE BILATERAL CAROTID BULBS. OTHERWISE, WIDELY SOLIS NT CAROTID AND VERTEBRAL ARTERIES OF THE NECK. 3. COPD WITH MILD EMPHYSEMA AND POSSIBLE UNDERLYING PULMONARY ARTERIAL HYPERTENSION. HEAD: 4. No large vessel intracranial arterial occlusion, significant stenosis, or aneurysmal change is see n.
--- NOTE | 2023-11-07 10:16 | XR ---
Patient: Albin Roland Ordering Physician: Unknown, Unknown ID: [id number] Phone, Pager: Phone: N/A Pager: N/A : 1945 Age/Gender: 78Y, M Primary Location: N/A Procedure: XR CHEST 2V Study Date: 10/10/2023 2:39:00 PM TYPE: XR chest 2V DATE OF EXAM: 10/10/2023 COMPARISON: 08/10/2023 HISTORY: 78-year-old male syncope TECHNIQUE: AP and lateral views FINDINGS: Heart mildly enlarged. Focal right basilar opacity persists. This may in part reflect a prominent epi cardial fat pad. However, opacity is present posteriorly at the lung base on the lateral view. IMPRESSION: Right basilar opacity, also present on the lateral view. Correlate for any symptoms of pneumonia. Follow-up after treatment to ensure clearance.
== END 2023-10-10 21:00 | disposition home or self-care (01) ==
LOC: EC 10:43
DX: R55 Syncope and collapse (principal)
CPT/HCPCS: 70450; 70496; 70498; 71046; 96360; 99285

== ENCOUNTER 2023-10-17 05:19 | Emergency (ER) | payer MEDICARE, OTHER ==
[2023-10-17 05:32] VITALS: TEMP 97.5
[2023-10-17] MEDS: SODIUM CHLORIDE 0.9% 1,000 ML IV STA (06:26)
[2023-10-17] MEDS: PANTOPRAZOLE 40 MG/10 ML VIAL IVP STA (06:27)
[2023-10-17] MEDS: ONDANSETRON 4 MG/2 ML VIAL IVP STA (06:27)
--- NOTE | 2023-10-17 06:30 | ED ---
Nausea/Vomiting/Diarrhea HPI - General Chief complaint: Nausea/Vomiting/Diarrhea Stated complaint: GI Issues Time Seen by Provider: 10/17/23 06:28 Source: patient, RN notes reviewed Mode of arrival: EMS Limitations: altered mental status - History of Present Illness Initial comments: 78-year-old male presented to the ER via EMS from nursing facility for evaluation of coffee-ground emesis. Patient has a past medical history significant of Parkinson's disease, chronic kidney disease, GI bleed. Cardiac history is provided by EMS/[facility] staff. Around 4 AM patient started to experience coffee-ground emesis. Patient is not currently on any blood th inners. He is reporting mild right sided abdominal pain. Denies any urinary complaints, constipation/diarrhea. Denies any dizziness, lightheadedness, shortness of breath, chest pain or peripheral edema. - Related Data Home Medications Medication Instructions Recorded Confirmed Carbidopa-Levodopa 25-100 mg 2 tab PO TID@0800,1400,2100 08/09/23 08/09/23 [Sinemet 25-100 mg] Finasteride [Proscar] 5 mg PO DAILY@79908/09/23 08/09/23 Fluconazole 150 mg PO MO@79908/09/23 08/09/23 Furosemide [Lasix] 20 mg PO MOWEFR@79908/09/23 08/09/23 Magnesium Hydroxide [Milk of 7,200 ml PO DAILY PRN 08/09/23 08/09/23 Magnesia Concentrate] Na Phos,M-B/Na Phos,Di-Ba [Fleet 133 ml RECTAL DAILY PRN 08/09/23 08/09/23 Adult] Potassium Chloride ER [K-Dur 10] 10 meq PO MOWEFR@79908/09/23 08/09/23 Promethazine Hcl Injection Solution 25 mg IM Q6H PRN 08/09/23 08/09/23 bisacodyL [Dulcolax] 10 mg RECTAL DAILY PRN 08/09/23 08/09/23 guaiFENesin [guaiFENesin Oral 100 mg PO Q4H PRN 08/09/23 08/09/23 Solution] lisinopriL [Zestril] 5 mg PO DAILY@79908/09/23 08/09/23 polyethylene glycoL 3350 [Miralax] 17 gm PO DAILY@0800 08/09/23 08/09/23 Previous Rx's Medication Instructions Recorded Omeprazole [PriLOSEC] 20 mg PO AC-BRKFST #90 cap 08/11/23 Doxycycline Hyclate 100 mg PO AC-BID #10 cap 08/12/23 Azithromycin [Zithromax Z Pack] 0 tab PO DIRECTED #6 tab 10/17/23 Omeprazole [PriLOSEC] 20 mg PO AC-BRKFST #14 cap 10/17/23 Allergies Allergy/AdvReac Type Severity Reaction Status Date / Time peanut Allergy Anaphylaxis Verified 08/09/23 09:29 Review of Systems ROS Statement: Those systems with pertinent positive or pertinent negative responses have been documented in the HPI. ROS Other: All systems not noted in ROS Statement are negative. Past Medical History Past Medical History: Hypertension Additional Past Medical History / Comment(s): Parkinsons, CKD History of Any Multi-Drug Resistant Organisms: None Reported Past Surgical History: No Surgical Hx Reported Smoking Status: Former smoker Past Alcohol Use History: None Reported General Exam Limitations: altered mental status General appearance: alert, in no apparent distress Respiratory exam: Present: normal lung sounds bilaterally. Absent: respiratory distress, wheezes, rales, rhonchi, stridor Cardiovascular Exam: Present: regular rate, normal rhythm, normal heart sounds. Absent: systolic murmur, diastolic murmur, rubs, gallop, clicks GI/Abdominal exam: Present: soft, normal bowel sounds. Absent: distended, tend erness, guarding, rebound, rigid Extremities exam: Present: normal inspection, full ROM, normal capillary refill. Absent: tenderness, pedal edema, joint swelling, calf tenderness Neurological exam: Present: alert Skin exam: Present: warm, dry, intact, normal color. Absent: rash Course Vital Signs 10/17/23 10/17/23 10/17/23 05:26 06:32 07:50 Temperature 97.5 F L Pulse Rate 73 75 60 Respiratory 16 16 18 Rate Blood Pressure 98/56 89/57 109/64 O2 Sat by Pulse 93 L 91 L 94 L Oximetry 10/17/23 10:18 Temperature Pulse Rate 61 Respiratory 18 Rate Blood Pressure 112/69 O2 Sat by Pulse 95 Oximetry Medical Decision Making - Medical Decision Making Was pt. sent in by a medical professional or institution (, PA, OIL PIT ATTENDANT, urgent care, hospital, or [place] health care facility...) When possible be specific @ -Patient sent by [facility]. Did you speak to anyone other than the patient for history (EMS, parent, family, police, friend...)? What history was obtained from this source @ -No Did you review nursing and triage notes (agree or disagree)? Why? @ -I reviewed and agree with nursing and triage notes Were old charts reviewed (outside hosp., previous admission, EMS record, old EKG, old radiological studies, urgent care reports/EKG's, [place] health care facility records)? Report findings @ -I reviewed charts from July 2023 patient seen for coffee-ground emesis. Patient had EGD and colonoscopy performed at that time. Found to have gastritis started on omeprazole. No blood transfusion required at that time. Differential Diagnosis (chest pain, altered mental status, abdominal pain women, abdominal pain men, vaginal bleeding, weakness, fever, dyspnea, syncope, headache, dizziness, GI bleed, back pain, seizure, CVA, palpatations, mental health, musculoskeletal)? @ -Differential GI Bleed:Esophageal varices, aortoenteric fistula, [place]- [place], gastritis, peptic ulcer disease, diverticulosis, inflammatory bowel disease, hemorrhoids, fissure, colitis, malignancy, Meckel's diverticulum, this is not meant to be an all-inclusive list. EKG interpreted by me (3pts min.). @ -As above X-rays interpreted by me (1pt min.). @ -Chest x-ray interpreted by me significant for bibasilar infiltrates. CT interpreted by me (1pt min.). @ -CT findings consistent with gastritis. No other acute process. U/S interpreted by me (1pt. min.). @ -None done What testing was considered but not performed or refused? (CT, X-rays, U/S, labs)? Why? @ -None What meds were considered but not given or refused? Why? @ -None Did you discuss the management of the patient with other professionals (professionals i.e. Dr. PA, OIL PIT ATTENDANT, lab, RT, psych nurse, social service manager, tax specialist, teacher, community reinvestment act officer, shoe caser)? Give summary @ -No Was smoking cessation discussed for >3mins.? @ -No Was critical care preformed (if so, how long)? @ -No Were there social determinants of health that impacted care today? How? (Homelessness, low income, unemployed, alcoholism, drug addiction, transport ation, low edu. Level, literacy, decrease access to med. care, [facility], rehab)? @ -Patient currently residing at [facility]. Was there de-escalation of care discussed even if they declined (Discuss DNR or withdrawal of care, Hospice)? DNR status @ -No What co-morbidities impacted this encounter? (DM, HTN, Smoking, COPD, CAD, Cancer, CVA, ARF, Chemo, Hep., AIDS, mental health diagnosis, sleep apnea, morbid obesity)? @ -Dementia/CKD/hx gastritis Was patient admitted / discharged? Hospital course, mention meds given and route, prescriptions, significant lab abnormalities, going to OR and other pertinent info. @ -Discharged. 78-year-old male presented to ER with a chief complaint of coffee-ground emesis. History and physical exam completed. Patient AxO x2. Vitals upon arrival remarkable for a blood pressure of 98/56, heart rate 73, respiratory rate 16, oxygen saturation 93% on room air. Patient no signs of acute distress and nontoxic-appearing. Exam unremarkable. No focal abdominal tenderness. Normal bowel sounds. No rebound or guarding. Laboratory studies obtained remarkable for a mild leukocytosis 12.6 with a left shift, likely related to nausea and vomiting. Hemoglobin stable at 13.1. Labs otherwise unremarkable. Patient received 1 L IV fluid with improvement of blood pressure to 112/69. Chest x-ray concerning of pneumonia patient will be started on azithromycin, patient received IV Rocephin prior to discharge. CT abdomen pelvis showing gastric wall thickening consistent with gastritis. Patient given IV Protonix and Zofran in the ER. Upon reevaluation, patient resting comfortably in exam room in no signs of acute distress. As patient has stable vital signs and Hgb, patient is stable for discharge at this time with outpatient follow-up. Coffee-ground emesis believed to be from gastric inflammation omeprazole prescribed. I advised close follow-up with PCP. Strict return parameters discussed. Patient discharged back to [facility] in stable condition. Case discussed with ED attending, Dr. Arambula. Undiagnosed new problem with uncertain prognosis? @ -No Drug Therapy requiring intensive monitoring for toxicity (Heparin, Nitro, Insulin, Cardizem)? @ -No Were any procedures done? @ -No Diagnosis/symptom? @ -Gastritis/pneumonia Acute, or Chronic, or Acute on Chronic? @ -Acute Uncomplicated (without systemic symptoms) or Complicated (systemic symptoms)? @ -Complicated Side effects of treatment? @ -No Exacerbation, Progression, or Severe Exacerbation? @ -No Poses a threat to life or bodily function? How? (Chest pain, [place], NC, pneumonia, PE, COPD, DKA, ARF, appy, cholecystitis, CVA, Diverticulitis, Homicidal, Suicidal, threat to staff... and all critical care pts) @ -Low likelihood at this time. GI bleeds can lead to anemia and hypoxia. - Lab Data Result diagrams: 10/17/23 06:24 10/17/23 06:24 Lab Results 10/17/23 10/17/23 10/17/23 Range/Units 06:10 06:24 06:24 WBC 12.6 H (3.8-10.6) k/uL RBC 4.87 (4.30-5.90) m/uL Hgb 13.1 (13.0-17.5) gm/dL Hct 41.8 (39.0-53.0) % MCV 85.7 (80.0-100.0) fL MCH 26.9 (25.0-35.0) pg MCHC 31.4 (31.0-37.0) g/dL RDW 16.4 H (11.5-15.5) % Plt Count 277 (150-450) k/uL MPV 9.1 Neutrophils % 93 % Lymphocytes % 4 % Monocytes % 3 % Eosinophils % 0 % Basophils % 0 % Neutrophils # 11.7 H (1.3-7.7) k/uL Lymphocytes # 0.5 L (1.0-4.8) k/uL Monocytes # 0.3 (0-1.0) k/uL Eosinophils # 0.0 (0-0.7) k/uL Basophils # 0.0 (0-0.2) k/uL Hypochromasia Marked Anisocytosis Slight PT 10.6 (10.0-12.5) sec INR 1.0 (<1.2) APTT 32.1 H (22.0-30.0) sec Sodium (137-145) mmol/L Potassium (3.5-5.1) mmol/L Chloride (98-107) mmol/L Carbon Dioxide (22-30) mmol/L Anion Gap mmol/L BUN (9-20) mg/dL Creatinine (0.66-1.25) mg/dL Est GFR (CKD-EPI)AfAm (>60 ml/min/1.73 sqM) Est GFR (CKD-EPI)NonAf (>60 ml/min/1.73 sqM) Glucose (74-99) mg/dL Plasma Lactic Acid Pepe (0.7-2.0) mmol/L Calcium (8.4-10.2) mg/dL Total Bilirubin (0.2-1.3) mg/dL AST (17-59) U/L ALT (4-49) U/L Alkaline Phosphatase (38-126) U/L Total Protein (6.3-8.2) g/dL Albumin (3.5-5.0) g/dL Blood Type B Positive Blood Type Recheck B Pos Bld Type Recheck Status No Antibody Screen NEGATIVE Spec Expiration Date 10/20/2023 - 230910/17/23 10/17/23 Range/Units 06:24 06:24 WBC (3.8-10.6) k/uL RBC (4.30-5.90) m/uL Hgb (13.0-17.5) gm/dL Hct (39.0-53.0) % MCV (80.0-100.0) fL MCH (25.0-35.0) pg MCHC (31.0-37.0) g/dL RDW (11.5-15.5) % Plt Count (150-450) k/uL MPV Neutrophils % % Lymphocytes % % Monocytes % % Eosinophils % % Basophils % % Neutrophils # (1.3-7.7) k/uL Lymphocytes # (1.0-4.8) k/uL Monocytes # (0-1.0) k/uL Eosinophils # (0-0.7) k/uL Basophils # (0-0.2) k/uL Hypochromasia Anisocytosis PT (10.0-12.5) sec INR (<1.2) APTT (22.0-30.0) sec Sodium 140 (137-145) mmol/L Potassium 5.3 H (3.5-5.1) mmol/L Chloride 108 H (98-107) mmol/L Carbon Dioxide 25 (22-30) mmol/L Anion Gap 7 mmol/L BUN 39 H (9-20) mg/dL Creatinine 0.98 (0.66-1.25) mg/dL Est GFR (CKD-EPI)AfAm 85 (>60 ml/min/1.73 sqM) Est GFR (CKD-EPI)NonAf 73 (>60 ml/min/1.73 sqM) Glucose 131 H (74-99) mg/dL Plasma Lactic Acid Pepe 1.2 (0.7-2.0) mmol/L Calcium 9.3 (8.4-10.2) mg/dL Total Bilirubin 0.8 (0.2-1.3) mg/dL AST 33 (17-59) U/L ALT 7 (4-49) U/L Alkaline Phosphatase 132 H (38-126) U/L Total Protein 7.3 (6.3-8.2) g/dL Albumin 4.4 (3.5-5.0) g/dL Blood Type Blood Type Recheck Bld Type Recheck Status Antibody Screen Spec Expiration Date - Radiology Data Radiology results: report reviewed, image reviewed Disposition Clinical Impression: Pneumonia, Gastritis Disposition: HOME SELF-CARE Condition: Stable Instructions (If sedation given, give patient instructions): Gastritis (DC) Additional Instructions: Continue taking omeprazole as prescribed. Take full course of azithromycin. Follow-up with PCP in next 1-2 days. Return to the ER for nay new or worsening symptoms. Prescriptions: Omeprazole [PriLOSEC] 20 mg PO AC-BRKT #14 cap Azithromycin [Zithromax Z Pack] 0 tab PO DIRECTED #6 tab Is patient prescribed a controlled substance at d/c from ED?: No Referrals: Nonstaff,Physician [Primary Care Provider] - 1-2 days Forms: Area PCPs Time of Disposition: 09:33
[2023-10-17 06:35] LABS: Anisocytosis Slight; Basophils % (A) 0 %; Eosinophils % (A) 0 %; HCT 41.8 % (39.0-53.0); HGB 13.1 gm/dL (13.0-17.5); Hypochromasia Marked; Lymphocytes # (A) 0.5 k/uL (1.0-4.8); Lymphocytes % (A) 4 %; MCH 26.9 pg (25.0-35.0); MCHC 31.4 g/dL (31.0-37.0); MCV 85.7 fL (80.0-100.0); Mean Platelet Volume 9.1; Monocytes # (A) 0.3 k/uL (0-1.0); Monocytes % (A) 3 %; Neutrophils # (A) 11.7 k/uL (1.3-7.7); Neutrophils % (A) 93 %; Platelet Count 277 k/uL (150-450); RBC 4.87 m/uL (4.30-5.90); RDW 16.4 % (11.5-15.5); WBC 12.6 k/uL (3.8-10.6)
[2023-10-17 06:45] LABS: ALT 7 U/L (4-49); AST 33 U/L (17-59); African American GFR (CKD) 85 (>60 ml/min/1.73 sqM); Albumin 4.4 g/dL (3.5-5.0); Alkaline Phosphatase 132 U/L (38-126); Anion Gap 7 mmol/L; Blood Urea Nitrogen 39 mg/dL (9-20); Calcium 9.3 mg/dL (8.4-10.2); Carbon Dioxide 25 mmol/L (22-30); Chloride 108 mmol/L (98-107); Glucose 131 mg/dL (74-99); Non-African American GFR(CKD) 73 (>60 ml/min/1.73 sqM); Sodium 140 mmol/L (137-145); Total Bilirubin 0.8 mg/dL (0.2-1.3); Total Protein 7.3 g/dL (6.3-8.2)
--- NOTE | 2023-10-17 06:53 | XR ---
EXAMINATION TYPE: XR chest 2V DATE OF EXAM: 10/17/2023 COMPARISON: Chest x-ray August 10, 2023 HISTORY: Coffee ground emesis TECHNIQUE: Frontal and lateral views of the chest are obtained. FINDINGS: There is cardiomegaly with bibasilar opacities. The osseous structures are intact. IMPRESSION: Cardiomegaly with bibasilar acute infiltrate and/or atelectasis on current study.
[2023-10-17 06:54] LABS: Potassium 5.3 mmol/L (3.5-5.1)
[2023-10-17 06:56] LABS: Partial Thromboplastin Time 32.1 sec (22.0-30.0); Prothrombin Time 10.6 sec (10.0-12.5)
[2023-10-17 07:52] VITALS: RESP 18
--- NOTE | 2023-10-17 09:02 | CT ---
EXAMINATION TYPE: CT abdomen pelvis w con CT DLP: 1809.8 mGycm, Automated exposure control for dose reduction was used. DATE OF EXAM: 10/17/2023 8:26 AM COMPARISON: None. CLINICAL INDICATION: Male, 78 years old with history of coffee ground emesis; Coffee grounds emesis TECHNIQUE: Axial CT abdomen pelvis w con;Sagittal and coronal reformats were created on a separate w orkstation. Contrast used:100 mL of Isovue 300 with IV Contrast, (none if empty) Oral contrast used: without Oral Contrast (none if empty) FINDINGS: LOWER CHEST: Heart is mildly enlarged for size. There is atelectasis changes in the lung bases. Inges dina contents or extending from the stomach into the esophagus. ABDOMEN LIVER: Large simple appearing hepatic cyst measuring up to 11.3 cm. GALLBLADDER AND BILE DUCTS: Layering increased densities within the lumen consistent with gallstones are present. PANCREAS: Unremarkable. SPLEEN: Unremarkable. ADRENAL GLANDS: Unremarkable. KIDNEYS AND URETERS: No evidence of hydronephrosis or renal calculus. The ureters are unremarkable. PELVIS BLADDER: Unremarkable REPRODUCTIVE: Prostate is enlarged in size measuring 6.5 cm in transverse dimension. ABDOMEN & PELVIS STOMACH AND BOWEL: No evidence of bowel obstruction. Moderate hiatal hernia swallowed contents extend ing into the esophagus. Moderate to large amount stool throughout the colon. PERITONEUM/RETROPERITONEUM: No evidence of pneumoperitoneum or free fluid. VASCULATURE: No evidence of aortic aneurysm. MUSCULOSKELETAL: No acute osseous abnormalities LYMPH NODES: No gross evidence for lymphadenopathy. SOFT TISSUE/ABDOMINAL WALL: Unremarkable IMPRESSION: 1. Moderate hiatal hernia with reflux of ingested contents into the esophagus. There is mild hyperem ia of the gastric mucosa. Correlate for gastritis. 2. Moderate amount stool throughout the colon. 3. Large simple appearing hepatic cyst. 4. Prostatomegaly, correlate with serum PSA. 5. Cholelithiasis.
[2023-10-17] MEDS: cefTRIAXone IN SWFI 1,000 MG/10 ML SYRINGE IVP STA (10:17)
[2023-10-17 10:18] VITALS: BP 112/69; PULSE 61
== END 2023-10-17 11:38 | disposition home or self-care (01) ==
LOC: EC 05:19
DX: K92.2 Gastrointestinal hemorrhage, unspecified
CPT/HCPCS: 36415; 71046; 74177; 80053; 83605; 85025; 85610; 85730; 86850; 86900; 86901; 96361; 96374; 96375; 99284

== ENCOUNTER 2023-10-18 08:33 | Inpatient (IN) | payer MEDICARE, OTHER ==
[2023-10-18] MEDS: PANTOPRAZOLE 40 MG/10 ML VIAL IVP STA (09:12)
[2023-10-18] MEDS: SODIUM CHLORIDE 0.9% 500 ML 500 ML IV STA (09:13)
[2023-10-18 09:36] LABS: Prothrombin Time 10.6 sec (10.0-12.5)
[2023-10-18 09:41] LABS: ALT 8 U/L (4-49); AST 24 U/L (17-59); African American GFR (CKD) 75 (>60 ml/min/1.73 sqM); Albumin 3.7 g/dL (3.5-5.0); Alkaline Phosphatase 112 U/L (38-126); Anion Gap 9 mmol/L; Blood Urea Nitrogen 48 mg/dL (9-20); Calcium 8.9 mg/dL (8.4-10.2); Carbon Dioxide 22 mmol/L (22-30); Chloride 112 mmol/L (98-107); Glucose 98 mg/dL (74-99); Lipase 86 U/L (23-300); Magnesium 2.3 mg/dL (1.6-2.3); Non-African American GFR(CKD) 64 (>60 ml/min/1.73 sqM); Potassium 4.7 mmol/L (3.5-5.1); Sodium 143 mmol/L (137-145); Total Bilirubin 0.6 mg/dL (0.2-1.3); Total Protein 6.4 g/dL (6.3-8.2)
--- NOTE | 2023-10-18 10:29 | ED ---
Altered Mental Status HPI - General Chief Complaint: Altered Mental Status Stated Complaint: AMS Time Seen by Provider: 10/18/23 08:40 Source: EMS Mode of arrival: EMS Limitations: altered mental status - History of Present Illness Initial Comments: 58-year old male with past medical history of Parkinson's, chronic kidney disease who presents emergency department with possible GI bleed. Patient has had GI bleed before in the past due to erosive esophagitis. This was found on an EGD which was done in July. Patient does remain on proton pump inhibitors. Patient was seen yesterday in the emergency department for hematemesis. Labs were stable as well as his blood pressure and he was discharged home. Presents again today from [facility] for hypotension, altered mental status and hypoxia. Patient was found to be saturating in the 80s at the rehab facility. He has no history of COPD, asthma or congestive heart failure. Patient does not wear oxygen at the facility. They also found his blood pressure to be low. They state that he has had multiple episodes of dark vomiting. It upon arrival patient is able to communicate appropriately. He denies any pain. Denies shortness of breath. Admits to cough. Was recently diagnosed with pneumonia and was discharged on antibiotics. No fevers. No other alleviating, precipitating or modifying factors - Related Data Home Medications Medication Instructions Recorded Confirmed Carbidopa-Levodopa 25-100 mg 2 tab PO TID@0800,1400,2100 08/09/23 10/18/23 [Sinemet 25-100 mg] Finasteride [Proscar] 5 mg PO HS 08/09/23 10/18/23 Furosemide [Lasix] 20 mg PO MOWEFR@1400 08/09/23 10/18/23 Magnesium Hydroxide [Milk of 7,200 ml PO DIRECTED PRN 08/09/23 10/18/23 Magnesia Concentrate] Na Phos,M-B/Na Phos,Di-Ba [Fleet 133 ml RECTAL DAILY PRN 08/09/23 10/18/23 Adult] Potassium Chloride ER [K-Dur 10] 10 meq PO MOWEFR@0800 08/09/23 10/18/23 Promethazine Hcl Injection Solution 25 mg IM Q6H PRN 08/09/23 10/18/23 bisacodyL [Dulcolax] 10 mg RECTAL DAILY PRN 08/09/23 10/18/23 guaiFENesin [guaiFENesin Oral 100 mg PO Q4H PRN 08/09/23 10/18/23 Solution] lisinopriL [Zestril] 5 mg PO DAILY@0800 08/09/23 10/18/23 polyethylene glycoL 3350 [Miralax] 17 gm PO DAILY@0800 08/09/23 10/18/23 Azithromycin [Zithromax Z Pack] See Taper PO DIRECTED@1200 10/18/23 10/18/23 Midodrine [ProAmatine] 5 mg PO BID@0800,1700 10/18/23 10/18/23 Omeprazole [PriLOSEC] 20 mg PO DAILY@0800 10/18/23 10/18/23 Pantoprazole [Protonix] 40 mg PO DAILY@0800 10/18/23 10/18/23 risperiDONE [RisperDAL] 0.25 mg PO BID@0800,1700 10/18/23 10/18/23 Allergies Allergy/AdvReac Type Severity Reaction Status Date / Time peanut Allergy Anaphylaxis Verified 10/18/23 10:06 Review of Systems ROS Statement: Those systems with pertinent positive or pertinent negative responses have been documented in the HPI. ROS Other: All systems not noted in ROS Statement are negative. Past Medical History Past Medical History: Hypertension Additional Past Medical History / Comment(s): Parkinsons, CKD History of Any Multi-Drug Resistant Organisms: None Reported Past Surgical History: No Surgical Hx Reported Smoking Status: Former smoker Past Alcohol Use History: None Reported General Exam Limitations: language barrier (Patient does have some slurred speech however he states it is due to his Parkinson's and that it is chronic for him) General appearance: alert, lethargic Head exam: Present: atraumatic, normocephalic, normal inspection Eye exam: Present: normal appearance, PERRL, EOMI. Absent: scleral icterus, conjunctival injection, periorbital swelling ENT exam: Present: mucous membranes dry, other (Patient does have some facial droop however this is also reported to be baseline per staff at rehab facility. They state that this will vary between what side he lays on. Patient is able to correct the facial droop when asked to smile) Neck exam: Present: normal inspection. Absent: tenderness, meningismus, lymphadenopathy Respiratory exam: Present: rales, decreased breath sounds (On the right) Cardiovascular Exam: Present: regular rate, normal rhythm, normal heart sounds. Absent: systolic murmur, diastolic murmur, rubs, gallop, clicks GI/Abdominal exam: Present: soft, normal bowel sounds. Absent: distended, tende rness, guarding, rebound, rigid Extremities exam: Present: other (Patient has chronic contractures. He is bedbound. He has atrophy of his extremities. He does prefer to lay on his right side) Back exam: Present: normal inspection Neurological exam: Present: alert, oriented X3, other (Patient has some difficulties of communication because of his dysarthria however he does answer all questions appropriately. He is able to follow all commands. ) Psychiatric exam: Present: flat affect Skin exam: Present: warm, dry, intact, normal color. Absent: rash Course Vital Signs 10/18/23 10/18/23 10/18/23 08:34 09:05 09:09 Temperature 94.5 F L Pulse Rate 89 74 Respiratory 14 14 Rate Blood Pressure 103/68 97/67 O2 Sat by Pulse 92 L 93 L Oximetry 10/18/23 10/18/23 10/18/23 10:03 11:14 12:10 Temperature 95.2 F L Pulse Rate 75 78 Respiratory 14 16 Rate Blood Pressure 111/91 122/78 O2 Sat by Pulse 94 L 90 L Oximetry 10/18/23 10/18/23 10/18/23 14:30 15:45 16:15 Temperature 97.4 F L 97.5 F L Pulse Rate 82 81 80 Respiratory 18 20 20 Rate Blood Pressure 93/72 82/61 109/69 O2 Sat by Pulse 92 L 93 L 93 L Oximetry Medical Decision Making - Medical Decision Making Was pt. sent in by a medical professional or institution (, PA, LOAN OPERATIONS SPECIALIST, urgent care, hospital, or residential...) When possible be specific @ -Patient sent in from his rehab facility Did you speak to anyone other than the patient for history (EMS, parent, family, police, friend...)? What history was obtained from this source @ -I spoke with EMS for history Did you review nursing and triage notes (agree or disagree)? Why? @ -I reviewed and agree with nursing and triage notes Were old charts reviewed (outside hosp., previous admission, EMS record, old EKG, old radiological studies, urgent care reports/EKG's, residential records)? Report findings @ -I reviewed the ER visit from yesterday where patient was seen for the same complaints Differential Diagnosis (chest pain, altered mental status, abdominal pain women, abdominal pain men, vaginal bleeding, weakness, fever, dyspnea, syncope, headache, dizziness, GI bleed, back pain, seizure, CVA, palpatations, mental health, musculoskeletal)? @ -Differential Weakness: Hypoglycemia, shock, sepsis, hyponatremia, anemia, infection, HI, ETOH, adverse medicine reaction, overdose, stroke, this is not meant to be an all-inclusive list. Differential GI Bleed: Esophageal varices, aortoenteric fistula, Ofelia-Jordan, gastritis, peptic ulcer disease, diverticulosis, inflammatory bowel disease, hemorrhoids, fissure, colitis, malignancy, Meckel's diverticulum, this is not meant to be an all- inclusive list. EKG interpreted by me (3pts min.). @ -Yes and demonstrates sinus rhythm with a rate of 73. CT interval 238. QRS 94. QTc of 403. No acute ST segment elevations. T wave in lead III X-rays interpreted by me (1pt min.). @ -Yes and demonstrates large right-sided pneumonia CT interpreted by me (1pt min.). @ -Not done U/S interpreted by me (1pt. min.). @ -None done What testing was considered but not performed or refused? (CT, X-rays, U/S, labs)? Why? @ -CT abdomen was considered however the patient had wanted the previous day in the ER. CT brain was also considered as it was reported that the patient was having alterations in his mental status. Patient is awake and able to provide all appropriate answers to questions in the emergency department. There is some facial droop however this is reported by EMS to be chronic for the patient and varies as to whether which side the patient is laying on What meds were considered but not given or refused? Why? @ -None Did you discuss the management of the patient with other professionals (pro fessionals i.e. , PA, LOAN OPERATIONS SPECIALIST, lab, RT, psych nurse, licensed master social worker, construction project manager, teacher, air antisubmarine officer, lining caser)? Give summary @ -I spoke with Dr. Javier. Patient is occult is negative and he has not had any vomiting in the emergency department however there is concern that GI bleed is related to the patient's current symptoms. Patient was recently scoped in July. As there was no signs of esophageal varices he was agreeable that he would be on consult if needed. I spoke with Dr. Martinez who accepted admission of the patient and did request that he be placed on consult Was smoking cessation discussed for >3mins.? @ -No Was critical care preformed (if so, how long)? @ -No Were there social determinants of health that impacted care today? How? (Homelessness, low income, unemployed, alcoholism, drug addiction, transportation, low edu. Level, literacy, decrease access to med. care, intermediate, r ehab)? @ -Patient is coming from rehab Was there de-escalation of care discussed even if they declined (Discuss DNR or withdrawal of care, Hospice)? DNR status @ -Yes patient is awake, alert and able to answer questions appropriately. He has DNR paperwork which accompanies with him. EMS to reiterate that the patient is a DNR. I spoke with the patient in regards to his status at this time and his CODE STATUS. Patient is adamant that he wants to remain a DNR. He wants no compressions, intubation or extenuating life saving measures. He is agreeable to IV fluids, antibiotics and blood transfusion if needed What co-morbidities impacted this encounter? (DM, HTN, Smoking, COPD, CAD, Cancer, CVA, ARF, Chemo, Hep., AIDS, mental health diagnosis, sleep apnea, morbid obesity)? @ -Parkinson's, GI bleed Was patient admitted / discharged? Hospital course, mention meds given and route, prescriptions, significant lab abnormalities, going to OR and other pertinent info. @ -Upon arrival patient is placed into trauma 2. Thorough history and physical exam was performed. Patient is extremely fatigued however arousable and able to answer all questions appropriately. He has chronic contractures and atrophy due to being bedbound. Facial droop is appreciated however EMS reports that this is chronic and changes as to whether the patient is on his left or right side. Patient denies any lateralizing weakness but admits to general weakness and debility. Blood pressures are noted to be low on the left arm but within normal limits on the right arm. Patient does have bounding palpable pulses in all 4 extremities. Occult is performed and is negative. Laboratory studies are conducted and demonstrates a stable hemoglobin. Chest x-ray demonstrates a very large right-sided pneumonia. I did discuss patient's CODE STATUS. Continues to agree with his previously stated DNR. I spoke with Dr. Javier who informed him that the patient has no signs of active GI bleeding at this time however there is concerned that this could possibly be contributing to the patient's current status. He was agreeable to consulting on the patient. I spoke with Dr. Martinez. She will be admitting the patient with a pulmonology consult and surgical consult. Patient admitted for hypoxic respiratory failure due to pneumonia and will be placed on antibiotics and fluids. Patient agreeable to this plan and was admitted to the floor in stable condition. States that his next of kin is his brother Wadimir Undiagnosed new problem with uncertain prognosis? @ -No Drug Therapy requiring intensive monitoring for toxicity (Heparin, Nitro, Insulin, Cardizem)? @ -No Were any procedures done? @ -No Diagnosis/symptom? @ -Acute hypoxic respiratory failure, acute encephalopathy, acute pneumonia, suspected aspiration, reported hypotension, history of Parkinson's, history of GI bleed Acute, or Chronic, or Acute on Chronic? @ -Acute Uncomplicated (without systemic symptoms) or Complicated (systemic symptoms)? @ -Complicated Side effects of treatment? @ -No Exacerbation, Progression, or Severe Exacerbation? @ -No Poses a threat to life or bodily function? How? (Chest pain, USA, HI, pneumonia, PE, COPD, DKA, ARF, appy, cholecystitis, CVA, Diverticulitis, Homicidal, Suicidal, threat to staff... and all critical care pts) @ -No - Lab Data Result diagrams: 10/19/23 05:22 10/19/23 05:22 Lab Results 10/18/23 10/18/23 10/18/23 Range/Units 09:06 09:06 09:06 WBC (3.8-10.6) k/uL RBC (4.30-5.90) m/uL Hgb (13.0-17.5) gm/dL Hct (39.0-53.0) % MCV (80.0-100.0) fL MCH (25.0-35.0) pg MCHC (31.0-37.0) g/dL RDW (11.5-15.5) % Plt Count (150-450) k/uL MPV Neutrophils % % Lymphocytes % % Monocytes % % Eosinophils % % Basophils % % Neutrophils # (1.3-7.7) k/uL Lymphocytes # (1.0-4.8) k/uL Monocytes # (0-1.0) k/uL Eosinophils # (0-0.7) k/uL Basophils # (0-0.2) k/uL Hypochromasia Anisocytosis PT 10.6 (10.0-12.5) sec INR 1.0 (<1.2) APTT 30.0 (22.0-30.0) sec Sodium 143 (137-145) mmol/L Potassium 4.7 (3.5-5.1) mmol/L Chloride 112 H (98-107) mmol/L Carbon Dioxide 22 (22-30) mmol/L Anion Gap 9 mmol/L BUN 48 H (9-20) mg/dL Creatinine 1.08 (0.66-1.25) mg/dL Est GFR (CKD-EPI)AfAm 75 (>60 ml/min/1.73 sqM) Est GFR (CKD-EPI)NonAf 64 (>60 ml/min/1.73 sqM) Glucose 98 (74-99) mg/dL Plasma Lactic Acid Pepe (0.7-2.0) mmol/L Calcium 8.9 (8.4-10.2) mg/dL Magnesium 2.3 (1.6-2.3) mg/dL Total Bilirubin 0.6 (0.2-1.3) mg/dL AST 24 (17-59) U/L ALT 8 (4-49) U/L Alkaline Phosphatase 112 (38-126) U/L Troponin I <0.012 (0.000-0.034) ng/mL NT-Pro-B Natriuret Pep pg/mL Total Protein 6.4 (6.3-8.2) g/dL Albumin 3.7 (3.5-5.0) g/dL Lipase 86 (23-300) U/L Stool Occult Blood (Negative) Influenza Type A (PCR) (Not Detectd) Influenza Type B (PCR) (Not Detectd) RSV (PCR) (Not Detectd) SARS-CoV-2 (PCR) (Not Detectd) 10/18/23 10/18/23 10/18/23 Range/Units 09:06 09:06 09:06 WBC (3.8-10.6) k/uL RBC (4.30-5.90) m/uL Hgb (13.0-17.5) gm/dL Hct (39.0-53.0) % MCV (80.0-100.0) fL MCH (25.0-35.0) pg MCHC (31.0-37.0) g/dL RDW (11.5-15.5) % Plt Count (150-450) k/uL MPV Neutrophils % % Lymphocytes % % Monocytes % % Eosinophils % % Basophils % % Neutrophils # (1.3-7.7) k/uL Lymphocytes # (1.0-4.8) k/uL Monocytes # (0-1.0) k/uL Eosinophils # (0-0.7) k/uL Basophils # (0-0.2) k/uL Hypochromasia Anisocytosis PT (10.0-12.5) sec INR (<1.2) APTT (22.0-30.0) sec Sodium (137-145) mmol/L Potassium (3.5-5.1) mmol/L Chloride (98-107) mmol/L Carbon Dioxide (22-30) mmol/L Anion Gap mmol/L BUN (9-20) mg/dL Creatinine (0.66-1.25) mg/dL Est GFR (CKD-EPI)AfAm (>60 ml/min/1.73 sqM) Est GFR (CKD-EPI)NonAf (>60 ml/min/1.73 sqM) Glucose (74-99) mg/dL Plasma Lactic Acid Pepe 1.4 (0.7-2.0) mmol/L Calcium (8.4-10.2) mg/dL Magnesium (1.6-2.3) mg/dL Total Bilirubin (0.2-1.3) mg/dL AST (17-59) U/L ALT (4-49) U/L Alkaline Phosphatase (38-126) U/L Troponin I (0.000-0.034) ng/mL NT-Pro-B Natriuret Pep 201 pg/mL Total Protein (6.3-8.2) g/dL Albumin (3.5-5.0) g/dL Lipase (23-300) U/L Stool Occult Blood Negative (Negative) Influenza Type A (PCR) (Not Detectd) Influenza Type B (PCR) (Not Detectd) RSV (PCR) (Not Detectd) SARS-CoV-2 (PCR) (Not Detectd) 10/18/23 10/18/23 Range/Units 11:13 12:09 WBC 11.6 H (3.8-10.6) k/uL RBC 4.39 (4.30-5.90) m/uL Hgb 12.0 L (13.0-17.5) gm/dL Hct 37.5 L (39.0-53.0) % MCV 85.4 (80.0-100.0) fL MCH 27.2 (25.0-35.0) pg MCHC 31.9 (31.0-37.0) g/dL RDW 16.8 H (11.5-15.5) % Plt Count 172 (150-450) k/uL MPV 9.0 Neutrophils % 95 % Lymphocytes % 2 % Monocytes % 2 % Eosinophils % 0 % Basophils % 0 % Neutrophils # 11.0 H (1.3-7.7) k/uL Lymphocytes # 0.2 L (1.0-4.8) k/uL Monocytes # 0.3 (0-1.0) k/uL Eosinophils # 0.1 (0-0.7) k/uL Basophils # 0.0 (0-0.2) k/uL Hypochromasia Slight Anisocytosis Slight PT (10.0-12.5) sec INR (<1.2) APTT (22.0-30.0) sec Sodium (137-145) mmol/L Potassium (3.5-5.1) mmol/L Chloride (98-107) mmol/L Carbon Dioxide (22-30) mmol/L Anion Gap mmol/L BUN (9-20) mg/dL Creatinine (0.66-1.25) mg/dL Est GFR (CKD-EPI)AfAm (>60 ml/min/1.73 sqM) Est GFR (CKD-EPI)NonAf (>60 ml/min/1.73 sqM) Glucose (74-99) mg/dL Plasma Lactic Acid Pepe (0.7-2.0) mmol/L Calcium (8.4-10.2) mg/dL Magnesium (1.6-2.3) mg/dL Total Bilirubin (0.2-1.3) mg/dL AST (17-59) U/L ALT (4-49) U/L Alkaline Phosphatase (38-126) U/L Troponin I (0.000-0.034) ng/mL NT-Pro-B Natriuret Pep pg/mL Total Protein (6.3-8.2) g/dL Albumin (3.5-5.0) g/dL Lipase (23-300) U/L Stool Occult Blood (Negative) Influenza Type A (PCR) Not Detected (Not Detectd) Influenza Type B (PCR) Not Detected (Not Detectd) RSV (PCR) Not Detected (Not Detectd) SARS-CoV-2 (PCR) Not Detected (Not Detectd) Disposition Clinical Impression: Pneumonia, Hypoxia Disposition: ADMITTED IP TO THIS [facility] Condition: Serious Is patient prescribed a controlled substance at d/c from ED?: No Time of Disposition: 13:41 Decision to Admit Reason: Admit from EC Decision Date: 10/18/23 Decision Time: 13:41
--- NOTE | 2023-10-18 10:47 | XR ---
EXAMINATION TYPE: XR chest 1V portable DATE OF EXAM: 10/18/2023 COMPARISON: 10/17/2023 INDICATION: Ataxia TECHNIQUE: Single frontal view of the chest is obtained. FINDINGS: The heart size is enlarged. The pulmonary vasculature is normal. Right lower lobe consolidation with air bronchograms is present. Correlate for. Small right pleural e ffusion may be present. IMPRESSION: 1. Lower lobe consolidation. Correlate for pneumonia. Follow-up is recommended. 2. Small right pleural effusion
[2023-10-18 11:20] LABS: Anisocytosis Slight; Basophils % (A) 0 %; Eosinophils # (A) 0.1 k/uL (0-0.7); Eosinophils % (A) 0 %; HCT 37.5 % (39.0-53.0); Hypochromasia Slight; Lymphocytes # (A) 0.2 k/uL (1.0-4.8); Lymphocytes % (A) 2 %; MCH 27.2 pg (25.0-35.0); MCHC 31.9 g/dL (31.0-37.0); MCV 85.4 fL (80.0-100.0); Monocytes # (A) 0.3 k/uL (0-1.0); Monocytes % (A) 2 %; Neutrophils % (A) 95 %; Platelet Count 172 k/uL (150-450); RBC 4.39 m/uL (4.30-5.90); RDW 16.8 % (11.5-15.5); WBC 11.6 k/uL (3.8-10.6)
[2023-10-18] MEDS ORDERED: NALOXONE 0.4 MG/ML 1 ML VIAL IV PRN (13:41)
[2023-10-18] MEDS ORDERED: ONDANSETRON 4 MG/2 ML VIAL IVP PRN (13:41)
[2023-10-18] MEDS: PIPERACILLIN-TAZOBACTAM 3.375 GM in SODIUM CHLORIDE 0.9% 100 ML IVPB SCH (14:31)
[2023-10-18] MEDS: SODIUM CHLORIDE 0.9% 1,000 ML IV SCH (15:43)
[2023-10-18] MEDS: risperiDONE 0.25 MG TAB PO SCH (16:12)
[2023-10-18] MEDS: MIDODRINE 5 MG TAB PO SCH (16:12)
[2023-10-18 17:44] LABS: Glucose,Whole Blood 92 mg/dL (70-110)
[2023-10-18] MEDS: SODIUM CHLORIDE 0.9% 1,000 ML IV ONE ×2 (18:18→19:57)
[2023-10-18 18:43] LABS: Anisocytosis Slight; Basophils % (A) 0 %; Eosinophils % (A) 0 %; HCT 34.2 % (39.0-53.0); HGB 10.5 gm/dL (13.0-17.5); Hypochromasia Marked; Lymphocytes # (A) 0.5 k/uL (1.0-4.8); Lymphocytes % (A) 5 %; MCH 27.1 pg (25.0-35.0); MCHC 30.8 g/dL (31.0-37.0); MCV 88.2 fL (80.0-100.0); Mean Platelet Volume 8.9; Monocytes # (A) 0.3 k/uL (0-1.0); Monocytes % (A) 2 %; Neutrophils % (A) 92 %; Platelet Count 192 k/uL (150-450); RBC 3.88 m/uL (4.30-5.90); RDW 16.6 % (11.5-15.5); WBC 10.9 k/uL (3.8-10.6)
[2023-10-18 19:13] LABS: African American GFR (CKD) 71 (>60 ml/min/1.73 sqM); Anion Gap 5 mmol/L; Blood Urea Nitrogen 51 mg/dL (9-20); Calcium 7.8 mg/dL (8.4-10.2); Carbon Dioxide 20 mmol/L (22-30); Chloride 117 mmol/L (98-107); Glucose 86 mg/dL (74-99); Non-African American GFR(CKD) 61 (>60 ml/min/1.73 sqM); Sodium 142 mmol/L (137-145)
[2023-10-18 19:15] LABS: Magnesium 2.2 mg/dL (1.6-2.3); Potassium 4.6 mmol/L (3.5-5.1)
[2023-10-18] MEDS: CARBIDOPA-LEVODOPA 25-100 MG 1 EACH TAB PO SCH (20:04)
[2023-10-18] MEDS: NOREPINEPHRINE 4 MG in SODIUM CHLORIDE 0.9% 250 ML IV SCH (22:57)
[2023-10-19 05:45] LABS: Anisocytosis Slight; Basophils % (A) 0 %; Eosinophils # (A) 0.1 k/uL (0-0.7); Eosinophils % (A) 1 %; HCT 33.5 % (39.0-53.0); HGB 10.3 gm/dL (13.0-17.5); Hypochromasia Marked; Lymphocytes # (A) 0.8 k/uL (1.0-4.8); Lymphocytes % (A) 9 %; MCH 27.6 pg (25.0-35.0); MCHC 30.9 g/dL (31.0-37.0); MCV 89.5 fL (80.0-100.0); Mean Platelet Volume 8.2; Monocytes # (A) 0.3 k/uL (0-1.0); Monocytes % (A) 3 %; Neutrophils # (A) 7.6 k/uL (1.3-7.7); Neutrophils % (A) 85 %; Platelet Count 211 k/uL (150-450); RBC 3.74 m/uL (4.30-5.90); RDW 16.6 % (11.5-15.5); WBC 8.9 k/uL (3.8-10.6)
[2023-10-19 05:57] LABS: African American GFR (CKD) 79 (>60 ml/min/1.73 sqM); Anion Gap 4 mmol/L; Blood Urea Nitrogen 45 mg/dL (9-20); Calcium 7.7 mg/dL (8.4-10.2); Carbon Dioxide 21 mmol/L (22-30); Chloride 119 mmol/L (98-107); Glucose 59 mg/dL (74-99); Non-African American GFR(CKD) 69 (>60 ml/min/1.73 sqM); Potassium 4.2 mmol/L (3.5-5.1); Sodium 144 mmol/L (137-145)
--- NOTE | 2023-10-19 08:54 | P.HPIM ---
History of Present Illness H&P Date: 10/18/23 Chief Complaint: Altered mental status 78-year old male with past medical history of hypertension, Parkinson's, CKD who presents emergency department with altered mental status and possible GI bleed. Patient has had GI bleed before in the past due to erosive esophagitis. This was found on an EGD which was done in July. Patient does remain on proton pump inhibitors. Patient was seen yesterday in the emergency department for hematemesis. Labs were stable as well as his blood pressure and he was discharged home. Presents again today from [facility] for hypotension, altered mental status and hypoxia. Patient was found to be saturating in the 80s at the rehab facility. He has no history of COPD, asthma or congestive heart failure. Patient does not wear oxygen at the facility. They also found his blood pressure to be low. They state that he has had multiple episodes of dark vomiting. It upon arrival patient is able to communicate appropriately. He denies any pain. Denies shortness of breath. Admits to cough. Was recently diagnosed with pneumonia and was discharged on antibiotics. No fevers. No other alleviating, precipitating or modifying factors Blood work completed in ED reveals a WBC of 11.6, hemoglobin of 12 and platelet count of 172, sodium 143, potassium 4.7, BUNs/creatinine 48/1.08 and blood glucose of 98, troponin is less than 0.012, lactic acid level of 1.4, BNP of 201, stool occult blood is negative., Influenza A, B, RSV and COVID-19 is negative Chest x-ray reveals lower lobe consolidation correlate for pneumonia with small right-sided pleural effusion Patient is being admitted to the hospital for hypoxia and further treatment of pneumonia Review of Systems ROS unobtainable: due to mental status Past Medical History Past Medical History: Hypertension Additional Past Medical History / Comment(s): Parkinsons, CKD History of Any Multi-Drug Resistant Organisms: None Reported Past Surgical History: No Surgical Hx Reported Smoking Status: Former smoker Past Alcohol Use History: None Reported Medications and Allergies Home Medications Medication Instructions Recorded Confirmed Type Carbidopa-Levodopa 25-100 mg 2 tab PO TID@0800,1400,2100 08/09/23 10/18/23 History [Sinemet 25-100 mg] Finasteride [Proscar] 5 mg PO HS 08/09/23 10/18/23 History Furosemide [Lasix] 20 mg PO MOWEFR@1400 08/09/23 10/18/23 History Magnesium Hydroxide [Milk of 7,200 ml PO DIRECTED PRN 08/09/23 10/18/23 History Magnesia Concentrate] Na Phos,M-B/Na Phos,Di-Ba [Fleet 133 ml RECTAL DAILY PRN 08/09/23 10/18/23 History Adult] Potassium Chloride ER [K-Dur 10] 10 meq PO MOWEFR@0800 08/09/23 10/18/23 History Promethazine Hcl Injection Solution 25 mg IM Q6H PRN 08/09/23 10/18/23 History bisacodyL [Dulcolax] 10 mg RECTAL DAILY PRN 08/09/23 10/18/23 History guaiFENesin [guaiFENesin Oral 100 mg PO Q4H PRN 08/09/23 10/18/23 History Solution] lisinopriL [Zestril] 5 mg PO DAILY@0800 08/09/23 10/18/23 History polyethylene glycoL 3350 [Miralax] 17 gm PO DAILY@0800 08/09/23 10/18/23 History Azithromycin [Zithromax Z Pack] See Taper PO DIRECTED@1200 10/18/23 10/18/23 History Midodrine [ProAmatine] 5 mg PO BID@0800,1700 10/18/23 10/18/23 History Omeprazole [PriLOSEC] 20 mg PO DAILY@0800 10/18/23 10/18/23 History Pantoprazole [Protonix] 40 mg PO DAILY@0800 10/18/23 10/18/23 History risperiDONE [RisperDAL] 0.25 mg PO BID@0800,1700 10/18/23 10/18/23 History Allergies Allergy/AdvReac Type Severity Reaction Status Date / Time peanut Allergy Anaphylaxis Verified 10/18/23 10:06 Physical Exam Vitals: Vital Signs Temp Pulse Resp BP Pulse Ox 10/18/23 16:15 97.5 F L 80 20 109/69 93 L 10/18/23 15:45 97.4 F L 81 20 82/61 93 L 10/18/23 14:30 82 18 93/72 92 L 10/18/23 12:10 78 16 122/78 90 L 10/18/23 11:14 95.2 F L 10/18/23 10:03 75 14 111/91 94 L 10/18/23 09:09 74 14 97/67 93 L 10/18/23 09:05 94.5 F L 10/18/23 08:34 89 14 103/68 92 L Intake and Output 10/18/23 10/18/23 10/18/23 06:59 14:59 22:59 Other: Weight 104.326 kg General appearance: Patient is of stated age; sleepy but arousable; in no acute distress EENT Eyes: Present: anicteric sclerae, EOMI, PERRLA, normal appearance ENT: Present: hearing grossly normal, normal oropharynx Neck: Present: normal ROM. Absent: lymphadenopathy, rigidity, thyromegaly Thyroid: bilateral: normal size, negative: enlarged, nodule Respiratory: Scattered bilateral wheezes and rhonchi: Rales both lower lung suggs Cardiovascular: regular: normal: S1, S2 Abnormal Heart Sounds: Absent: systolic murmur, diastolic murmur Gastrointestinal; abdomen is soft and nontender nondistended; bowel sounds are positive Genitourinary Comment(s): deferred Neurologic: Patient moves all extremities; no gross motor or sensory deficit Musculoskeletal: Present: gait normal, strength equal bilaterally Results CBC & Chem 7: 10/19/23 05:22 10/19/23 05:22 Labs: Abnormal Lab Results - Last 24 Hours (Table) 10/18/23 10/18/23 Range/Units 09:06 11:13 WBC 11.6 H (3.8-10.6) k/uL Hgb 12.0 L (13.0-17.5) gm/dL Hct 37.5 L (39.0-53.0) % RDW 16.8 H (11.5-15.5) % Neutrophils # 11.0 H (1.3-7.7) k/uL Lymphocytes # 0.2 L (1.0-4.8) k/uL Chloride 112 H (98-107) mmol/L BUN 48 H (9-20) mg/dL Assessment and Plan Assessment: 1. Hypoxia; related to bilateral lower lobe pneumonia; concern for possible aspiration -Chest x-ray reveals lower lobe consolidation likely pneumonia with small right- sided pleural effusion; influenza AMB is negative; COVID-19 is negative; RSV PCR negative -WBC elevated at 10.9; Actiq acid within normal limit -Patient has been placed on Zosyn 3.375 g IV every 8 hours -Will add DuoNeb nebulizer treatments 4 times daily and as needed -Monitor CBC, CRP and procalcitonin -- Consult pulmonary for further recommendations 2. Mild JUSTIN; creatinine is within normal limit at 1.13; BUN elevated at 51 -Patient is currently on IV fluids in form of normal saline currently at rate of 130 cc an hour; we will monitor TOOTIE's, daily weights, renal function electrolytes; avoid nephrotoxins and hypotension 3. Altered mental status; likely toxic metabolic encephalopathy related to pneumonia and JUSTIN; patient is reported to be at baseline at this time 4. Hypertension; patient was found to be hypotensive at the rehab facility; b lood pressure is currently stable; takes lisinopril 5 mg daily along with Lasix 20 mg Friday and Friday; we will hold off on Lasix and lisinopril given mild JUSTIN 5. BPH; Proscar 5 mg nightly; will resume home meds once oral intake is established 6. Gastroesophageal reflux disease; takes Protonix 40 mg daily; will continue IV Protonix DVT prophylaxis; SCDs/subcu heparin CODE STATUS; full code
--- NOTE | 2023-10-19 09:04 | CT ---
EXAMINATION TYPE: CODE STROKE: CT brain wo contr DATE OF EXAM: 10/19/2023 COMPARISON: 10/10/2023 INDICATION: stroke DLP: 1319 mGycm, Automated exposure control for dose reduction was used. CONTRAST: None CT of the brain is performed utilizing 3 mm thick sections through the posterior fossa and 3 mm thick sections through the remaining calvarium. Study is performed within 24 hours of arrival to the hosp ital. No abnormal hyperdensity is present to suggest an acute intracranial hemorrhage. No mass lesion is evident. No acute infarcts are evident. There is periventricular white matter hypodensity, likely on the basis of chronic white matter ischemic changes. Pattern appears stable from comparison. There is prominenc e of ventricles and sulci. No temporal horn dilatation is evident. Paranasal sinuses and mastoid air cells within the [id number] are clear. IMPRESSION: 1. No acute intracranial process. Follow up MRI can be performed as clinically indicated. 2. Prominent atrophy with chronic appearing patchy to confluent white matter ischemic changes. Findin gs appear stable from recent comparison.
--- NOTE | 2023-10-19 09:13 | CT ---
EXAMINATION TYPE: CODE STROKE: CTA head neck DATE OF EXAM: 10/19/2023 HISTORY: stroke COMPARISON: None CT DLP: 618.6 mGycm. Automated Exposure Control for Dose Reduction was Utilized. TECHNIQUE: CTA scan of the neck is performed with IV Contrast, patient injected with 65 mL of Isovue 370, axial images are obtained, coronal and sagittal reformatted images are reviewed. Three-D recons tructed images are created on an independent workstation and reviewed. Source images are reviewed. FINDINGS: Carotid/Vascular Structures: There is a 3 vessel arch. Common carotid arteries bifurcate into internal and external carotid arteries without significant johanne w limiting stenosis. Vascular calcification is at the bifurcation without stenosis. Vertebral arteries are codominant. Internal carotid arteries and vertebral arteries are patent to the skull base. Cervical of [place]: Vertebral basilar system appears normal. Posterior cerebral vasculature is unrema rkable. Internal carotid arteries bifurcate normally into A1 and M1 segments. A2 segments are normal. The anterior communicating artery is not identified. The right posterior communicating artery is patent. The left posterior communicating artery is absent. IMPRESSION: 1. No flow-limiting stenosis bilateral carotid bifurcations. 2. Normal [place] of [place] NASCET criteria was used in interpretation of this exam?
--- NOTE | 2023-10-19 09:31 | P.CNPUL ---
History of Present Illness Consult date: 10/19/23 Requesting physician: Yonis Martinez Chief complaint: Hypotension. History of present illness: Pulmonary consult dated October 19, 2023. 78-year-old male seen in the emergency department, on October 17. He apparently came in from the long-term, with mental status changes. He was brought in by EMS. The patient has a history of Parkinson's disease, GI bleed, gastroesophageal reflux disease, hypertension, chronic kidney disease. The patient was seen the day before in the emergency department, for possible hemat emesis, labs are stable, his blood pressure was normal, and he was discharged. At [facility], he apparently became hypotensive, with mental status changes, and low saturations, and he was brought back to the emergency department. I was called, from the hospital service, yesterday, about this patient. He was on the floor, as a DNR patient, was apparently hypotensive despite fluid resuscitation, and the patient was transferred to the intensive care unit, for possible norepinephrine administration. Initially, according to the charge nurse in the ICU, the patient did not require norepinephrine. At about midnight, the patient's blood pressure dropped, and he was placed on 3.15 mcg/min of norepi nephrine, from midnight to 6:30 AM. This morning, the nurse who has the patient, noted that the patient had a right facial droop, and right upper extremity weakness. The right lower extremity was contracted chronically. He does have a chronic tremor because of his Parkinson's. It is not clear whether or not these changes are new or old, so therefore a code stroke was called. Chest x-ray on admission shows a possible right lower lobe pneumonia. Brain CT this morning, shows no acute intracranial process. There is prominent atrophy, with a chronic appearing patchy white matter ischemic changes. Angiography CT showed no flow-limiting stenotic areas. White count 8.9, hemoglobin 10.3, hem atocrit 33.5, and platelet count 211,000. Sodium 144, potassium 4.2, chlorides 119, CO2 21, BUN 45, creatinine 1.03. Calcium is 7.7. He tested negative for influenza, RSV, and coronavirus. Review of Systems REVIEW OF SYSTEMS: CONSTITUTIONAL: Weakness with mental status changes. NEUROLOGIC: Possible new right facial droop and right upper extremity weakness. HEENT: [ Negative.] CARDIAC: [Negative.] PULMONARY: Low saturations with possible pneumonia. GI: [Negative.] : [Negative.] RHEUMATOLOGIC: [ Negative.] IMMUNOLOGIC: [ Negative.] ENDOCRINE: [Negative. ] DERMATOLOGIC: [Negative.] Past Medical History Past Medical History: Hypertension Additional Past Medical History / Comment(s): Parkinsons, CKD History of Any Multi-Drug Resistant Organisms: None Reported Past Surgical History: No Surgical Hx Reported Additional Past Surgical History / Comment(s): left knee repair Past Anesthesia/Blood Transfusion Reactions: No Reported Reaction Smoking Status: Former smoker Past Alcohol Use History: None Reported Medications and Allergies Home Medications Medication Instructions Recorded Confirmed Type Carbidopa-Levodopa 25-100 mg 2 tab PO TID@0800,1400,2100 08/09/23 10/18/23 History [Sinemet 25-100 mg] Finasteride [Proscar] 5 mg PO HS 08/09/23 10/18/23 History Furosemide [Lasix] 20 mg PO MOWEFR@1400 08/09/23 10/18/23 History Magnesium Hydroxide [Milk of 7,200 ml PO DIRECTED PRN 08/09/23 10/18/23 History Magnesia Concentrate] Na Phos,M-B/Na Phos,Di-Ba [Fleet 133 ml RECTAL DAILY PRN 08/09/23 10/18/23 History Adult] Potassium Chloride ER [K-Dur 10] 10 meq PO MOWEFR@0800 08/09/23 10/18/23 History Promethazine Hcl Injection Solution 25 mg IM Q6H PRN 08/09/23 10/18/23 History bisacodyL [Dulcolax] 10 mg RECTAL DAILY PRN 08/09/23 10/18/23 History guaiFENesin [guaiFENesin Oral 100 mg PO Q4H PRN 08/09/23 10/18/23 History Solution] lisinopriL [Zestril] 5 mg PO DAILY@0800 08/09/23 10/18/23 History polyethylene glycoL 3350 [Miralax] 17 gm PO DAILY@0800 08/09/23 10/18/23 History Azithromycin [Zithromax Z Pack] See Taper PO DIRECTED@1200 10/18/23 10/18/23 History Midodrine [ProAmatine] 5 mg PO BID@0800,1700 10/18/23 10/18/23 History Omeprazole [PriLOSEC] 20 mg PO DAILY@0800 10/18/23 10/18/23 History Pantoprazole [Protonix] 40 mg PO DAILY@0800 10/18/23 10/18/23 History risperiDONE [RisperDAL] 0.25 mg PO BID@0800,1700 10/18/23 10/18/23 History Allergies Allergy/AdvReac Type Severity Reaction Status Date / Time peanut Allergy Anaphylaxis Verified 10/18/23 10:06 Physical Exam Osteopathic Statement: *. No significant issues noted on an osteopathic structural exam other than those noted in the History and Physical/Consult. Vitals: Vital Signs Temp Pulse Pulse Resp BP BP Pulse Ox 10/19/23 08:30 132/69 10/19/23 08:15 12 109/66 94 L 10/19/23 08:00 96.5 F L 10 L 166/123 91 L 10/19/23 07:45 9 L 89/77 93 L 10/19/23 07:30 10 L 111/74 92 L 10/19/23 07:15 11 L 117/64 94 L 10/19/23 07:00 60 10 L 125/81 92 L 10/19/23 06:45 66 10 L 124/66 91 L 10/19/23 06:30 72 8 L 123/68 90 L 10/19/23 06:15 71 12 125/61 95 10/19/23 06:00 76 28 H 120/67 95 10/19/23 05:45 66 22 119/61 92 L 10/19/23 05:30 70 20 126/84 92 L 10/19/23 05:15 71 20 126/64 97 10/19/23 05:00 71 18 123/66 96 10/19/23 04:45 71 12 118/67 97 10/19/23 04:30 71 12 119/71 97 10/19/23 04:15 65 12 123/65 95 10/19/23 04:00 71 12 126/68 97 10/19/23 03:45 72 9 L 126/78 96 10/19/23 03:30 79 16 122/63 96 10/19/23 03:15 68 18 122/63 96 10/19/23 03:00 75 12 121/91 95 10/19/23 02:45 69 12 120/69 96 10/19/23 02:30 81 12 122/65 97 10/19/23 02:15 75 10 L 119/70 96 10/19/23 02:00 72 10 L 115/63 96 10/19/23 01:45 74 9 L 113/65 97 10/19/23 01:30 71 12 113/66 97 10/19/23 01:15 69 12 97/62 97 10/19/23 01:00 75 12 82/62 97 10/19/23 00:45 59 L 18 96/51 95 10/19/23 00:30 10 L 85/51 90 L 10/19/23 00:20 76 14 85/51 92 L 10/19/23 00:15 76 24 105/46 92 L 10/19/23 00:00 78 24 118/78 93 L 10/18/23 23:45 22 117/71 94 L 10/18/23 23:30 80 18 93/74 95 10/18/23 23:15 70 12 104/52 87 L 10/18/23 23:00 75 12 116/90 94 L 10/18/23 22:45 76 18 120/68 93 L 10/18/23 22:30 12 104/71 94 L 10/18/23 22:15 14 98/79 93 L 10/18/23 22:00 12 122/104 92 L 10/18/23 21:45 16 89/57 93 L 10/18/23 21:30 24 86/54 91 L 10/18/23 21:15 11 L 89/68 92 L 10/18/23 21:00 19 101/63 95 10/18/23 20:45 14 93/64 95 10/18/23 20:30 68 13 81/44 95 10/18/23 20:15 57 L 9 L 94/52 92 L 10/18/23 20:00 65 12 95 10/18/23 19:59 59 L 32 H 96 10/18/23 18:53 58 L 72/35 10/18/23 18:45 54 L 64/40 10/18/23 18:33 54 L 17 72/41 95 10/18/23 17:48 59 L 17 65/47 94 L 10/18/23 17:45 16 10/18/23 17:40 63 16 67/41 92 L 10/18/23 17:00 69 17 78/45 93 L 10/18/23 16:45 72 18 88/57 93 L 10/18/23 16:15 97.5 F L 80 20 109/69 93 L 10/18/23 15:45 97.4 F L 81 20 82/61 93 L 10/18/23 14:30 82 18 93/72 92 L 10/18/23 12:10 78 16 122/78 90 L 10/18/23 11:14 95.2 F L 10/18/23 10:03 75 14 111/91 94 L Intake and Output 10/18/23 10/19/23 10/19/23 22:59 06:59 14:59 Intake Total 1260 1111.147 130 Output Total 380 365 150 Balance 880 746.147 -20 Intake: Intake, IV Titration 1260 1111.147 130 Amount Norepinephrine 4 mg In 71.147 Sodium Chloride 0.9% 250 ml @ 0.05 MCG/KG/MIN 19. 874 mls/hr IV .[id number] [facility] Rx#:[id number] Sodium Chloride 0.9% 1, 260 1040 130 000 ml @ 130 mls/hr IV . Q7H42M [facility] Rx#:[id number] Sodium Chloride 0.9% 1, 1000 000 ml @ 999 mls/hr IV . Q1H1M [facility] Rx#:[id number] Output: Urine 380 365 150 Other: Voiding Method Diaper Indwelling Catheter Weight 104.326 kg 105.6 kg No acute distress, currently on 4 L. No respiratory distress. The patient has a fine tremor. HEENT examination is grossly unremarkable. Mucous membranes are moist. No oral lesions. Right facial droop. Neck supple. Full range of motion. No adenopathy thyromegaly or neck vein distention. Cardiovascular examination reveals regular rhythm rate. S1-S2 normal. No S3 or S4. No discernible murmur noted. Heart rate is 88 bpm. Lungs reveal mild rhonchi. No wheezes or crackles. Saturations are 94 to 95% on 4 L. Abdomen soft bowel sounds are heard. No masses or tenderness. Extremities are intact. No cyanosis clubbing or edema. Skin is without rash or lesion. Neurologic examination reveals a right facial droop, contracted right lower extremity, and possible right upper extremity weakness. Results - Laboratory Findings CBC and BMP: 10/19/23 05:22 10/19/23 05:22 PT/INR, D-dimer PT 10.6 sec (10.0-12.5) 10/18/23 09:06 INR 1.0 (<1.2) 10/18/23 09:06 Abnormal lab findings: Abnormal Labs 10/18/23 10/18/23 10/18/23 09:06 11:13 18:25 WBC 11.6 H 10.9 H RBC 3.88 L Hgb 12.0 L 10.5 L Hct 37.5 L 34.2 L MCHC 30.8 L RDW 16.8 H 16.6 H Neutrophils # 11.0 H 10.0 H Lymphocytes # 0.2 L 0.5 L Chloride 112 H Carbon Dioxide BUN 48 H Glucose Calcium 10/18/23 10/19/23 10/19/23 18:25 05:22 05:22 WBC RBC 3.74 L Hgb 10.3 L Hct 33.5 L MCHC 30.9 L RDW 16.6 H Neutrophils # Lymphocytes # 0.8 L Chloride 117 H 119 H Carbon Dioxide 20 L 21 L BUN 51 H 45 H Glucose 59 L Calcium 7.8 L 7.7 L - Diagnostic Findings Chest x-ray: image reviewed Assessment and Plan Assessment: Acute hypoxemic respiratory failure, secondary to right-sided pneumonia. Acute hypotension, possibly related to underlying sepsis. History of Parkinson's disease. Possible new neurologic findings, including right facial droop, and right upper extremity weakness. History of gastroesophageal reflux disease. History of GI bleed. History of erosive esophagitis. History of hypertension. History of chronic kidney disease. Plan: Plan dated October 19, 2023. A stat CT scan without contrast, and angiography CT, is ordered. The patient is currently not requiring norepinephrine. The patient is on 4 L. He is getting saline at 130 cc an hour. The patient is a DO NOT RESUSCITATE patient. The patient is currently on Zosyn for possible pneumonia and sepsis. The patient was on norepinephrine, from midnight to 6:30 in the morning, had a bit more than 3 mcg/min. Labs, x-rays, and all medications are reviewed. Prognosis is guarded. We have been in touch with the family about CODE STATUS, and additional orders, and, we will wait for their input. We will continue to follow. Time with Patient: Greater than 30
--- NOTE | 2023-10-19 10:02 | P.GSCN ---
History of Present Illness Consult date: 10/19/23 History of present illness: 78-year old male with past medical history of hypertension, Parkinson's, CKD who presents emergency department with altered mental status and concern for hematemesis. He lives in a nursing facility and concern was patient had multiple episodes of dark vomiting. On arrival to the emergency department, hemoglobin was noted to be 12. He was noted to have low oxygen saturation and hypotension. He is denying any abdominal pain. On workup, concern is for pneumonia and hypoxia secondary to pneumonia. Hemoglobin has been stable over multiple draws. Patient has not had any evidence of further hematemesis. Review of Systems ROS unobtainable: due to mental status Past Medical History Past Medical History: Hypertension Additional Past Medical History / Comment(s): Parkinsons, CKD History of Any Multi-Drug Resistant Organisms: None Reported Past Surgical History: No Surgical Hx Reported Additional Past Surgical History / Comment(s): left knee repair Past Anesthesia/Blood Transfusion Reactions: No Reported Reaction Smoking Status: Former smoker Past Alcohol Use History: None Reported Medications and Allergies Home Medications Medication Instructions Recorded Confirmed Type Carbidopa-Levodopa 25-100 mg 2 tab PO TID@0800,1400,2100 08/09/23 10/18/23 History [Sinemet 25-100 mg] Finasteride [Proscar] 5 mg PO HS 08/09/23 10/18/23 History Furosemide [Lasix] 20 mg PO MOWEFR@1400 08/09/23 10/18/23 History Magnesium Hydroxide [Milk of 7,200 ml PO DIRECTED PRN 08/09/23 10/18/23 History Magnesia Concentrate] Na Phos,M-B/Na Phos,Di-Ba [Fleet 133 ml RECTAL DAILY PRN 08/09/23 10/18/23 History Adult] Potassium Chloride ER [K-Dur 10] 10 meq PO MOWEFR@0800 08/09/23 10/18/23 History Promethazine Hcl Injection Solution 25 mg IM Q6H PRN 08/09/23 10/18/23 History bisacodyL [Dulcolax] 10 mg RECTAL DAILY PRN 08/09/23 10/18/23 History guaiFENesin [guaiFENesin Oral 100 mg PO Q4H PRN 08/09/23 10/18/23 History Solution] lisinopriL [Zestril] 5 mg PO DAILY@0800 08/09/23 10/18/23 History polyethylene glycoL 3350 [Miralax] 17 gm PO DAILY@0800 08/09/23 10/18/23 History Azithromycin [Zithromax Z Pack] See Taper PO DIRECTED@1200 10/18/23 10/18/23 History Midodrine [ProAmatine] 5 mg PO BID@0800,1700 10/18/23 10/18/23 History Omeprazole [PriLOSEC] 20 mg PO DAILY@0800 10/18/23 10/18/23 History Pantoprazole [Protonix] 40 mg PO DAILY@0800 10/18/23 10/18/23 History risperiDONE [RisperDAL] 0.25 mg PO BID@0800,1700 10/18/23 10/18/23 History Allergies Allergy/AdvReac Type Severity Reaction Status Date / Time peanut Allergy Anaphylaxis Verified 10/18/23 10:06 Surgical - Exam Osteopathic Statement: *. No significant issues noted on an osteopathic structural exam other than those noted in the History and Physical/Consult. Vital Signs Pulse Resp BP Pulse Ox 89 14 103/68 92 L 10/18/23 08:34 10/18/23 08:34 10/18/23 08:34 10/18/23 08:34 - General no distress - Neck trachea midline - Respiratory normal respiratory effort - Abdomen Abdomen: soft, non tender Results - Labs 10/19/23 05:22 10/19/23 05:22 Abnormal Lab Results - Last 24 Hours (Table) 10/18/23 10/18/23 10/18/23 Range/Units 11:13 18:25 18:25 WBC 11.6 H 10.9 H (3.8-10.6) k/uL RBC 3.88 L (4.30-5.90) m/uL Hgb 12.0 L 10.5 L (13.0-17.5) gm/dL Hct 37.5 L 34.2 L (39.0-53.0) % MCHC 30.8 L (31.0-37.0) g/dL RDW 16.8 H 16.6 H (11.5-15.5) % Neutrophils # 11.0 H 10.0 H (1.3-7.7) k/uL Lymphocytes # 0.2 L 0.5 L (1.0-4.8) k/uL Chloride 117 H (98-107) mmol/L Carbon Dioxide 20 L (22-30) mmol/L BUN 51 H (9-20) mg/dL Glucose (74-99) mg/dL Calcium 7.8 L (8.4-10.2) mg/dL 10/19/23 10/19/23 Range/Units 05:22 05:22 WBC (3.8-10.6) k/uL RBC 3.74 L (4.30-5.90) m/uL Hgb 10.3 L (13.0-17.5) gm/dL Hct 33.5 L (39.0-53.0) % MCHC 30.9 L (31.0-37.0) g/dL RDW 16.6 H (11.5-15.5) % Neutrophils # (1.3-7.7) k/uL Lymphocytes # 0.8 L (1.0-4.8) k/uL Chloride 119 H (98-107) mmol/L Carbon Dioxide 21 L (22-30) mmol/L BUN 45 H (9-20) mg/dL Glucose 59 L (74-99) mg/dL Calcium 7.7 L (8.4-10.2) mg/dL Diabetes panel 10/18/23 10/19/23 Range/Units 18:25 05:22 Sodium 142 144 (137-145) mmol/L Potassium 4.6 4.2 (3.5-5.1) mmol/L Chloride 117 H 119 H (98-107) mmol/L Carbon Dioxide 20 L 21 L (22-30) mmol/L BUN 51 H 45 H (9-20) mg/dL Creatinine 1.13 1.03 (0.66-1.25) mg/dL Glucose 86 59 L (74-99) mg/dL Calcium 7.8 L 7.7 L (8.4-10.2) mg/dL Calcium panel 10/18/23 10/19/23 Range/Units 18:25 05:22 Calcium 7.8 L 7.7 L (8.4-10.2) mg/dL Pituitary panel 10/18/23 10/19/23 Range/Units 18:25 05:22 Sodium 142 144 (137-145) mmol/L Potassium 4.6 4.2 (3.5-5.1) mmol/L Chloride 117 H 119 H (98-107) mmol/L Carbon Dioxide 20 L 21 L (22-30) mmol/L BUN 51 H 45 H (9-20) mg/dL Creatinine 1.13 1.03 (0.66-1.25) mg/dL Glucose 86 59 L (74-99) mg/dL Calcium 7.8 L 7.7 L (8.4-10.2) mg/dL Adrenal panel 10/18/23 10/19/23 Range/Units 18:25 05:22 Sodium 142 144 (137-145) mmol/L Potassium 4.6 4.2 (3.5-5.1) mmol/L Chloride 117 H 119 H (98-107) mmol/L Carbon Dioxide 20 L 21 L (22-30) mmol/L BUN 51 H 45 H (9-20) mg/dL Creatinine 1.13 1.03 (0.66-1.25) mg/dL Glucose 86 59 L (74-99) mg/dL Calcium 7.8 L 7.7 L (8.4-10.2) mg/dL Assessment and Plan Plan: 78-year-old male with concern for hematemesis. Currently hemoglobin appears to be stable and no evidence of active GI bleed. Recommend PPI and continue to follow hemoglobin and clinically follow for any signs of GI bleeding. Otherwise, management for pneumonia per medicine team and ICU management.
[2023-10-19 10:52] LABS: Glucose,Whole Blood 71 mg/dL (70-110)
[2023-10-19] MEDS: PANTOPRAZOLE 40 MG/10 ML VIAL IV SCH (11:01)
[2023-10-19] MEDS ORDERED: DEXTROSE 50% SYRINGE 50 ML IVP PRN (11:13)
[2023-10-19] MEDS: DEXTROSE 50% SYRINGE 50 ML IVP PRN (11:24)
[2023-10-19 12:02] LABS: Glucose,Whole Blood 98 mg/dL (70-110)
--- NOTE | 2023-10-19 15:17 | P.PN ---
Subjective Progress Note Date: 10/19/23 78-year old male with past medical history of hypertension, Parkinson's, CKD who presents emergency department with altered mental status and possible GI bleed. Patient has had GI bleed before in the past due to erosive esophagitis. This was found on an EGD which was done in July. Patient does remain on proton pump inhibitors. Patient was seen yesterday in the emergency department for hematemesis. Labs were stable as well as his blood pressure and he was discharged home. Presents again today from [facility] for hypotension, altered mental status and hypoxia. Patient was found to be saturating in the 80s at the rehab facility. He has no history of COPD, asthma or congestive heart failure. Patient does not wear oxygen at the facility. They also found his blood pressure to be low. They state that he has had multiple episodes of dark vomiting. It upon arrival patient is able to communicate appropriately. He denies any pain. Denies shortness of breath. Admits to cough. Was recently d iagnosed with pneumonia and was discharged on antibiotics. No fevers. No other alleviating, precipitating or modifying factors Blood work completed in ED reveals a WBC of 11.6, hemoglobin of 12 and platelet count of 172, sodium 143, potassium 4.7, BUNs/creatinine 48/1.08 and blood glucose of 98, troponin is less than 0.012, lactic acid level of 1.4, BNP of 201, stool occult blood is negative., Influenza A, B, RSV and COVID-19 is negative Chest x-ray reveals lower lobe consolidation correlate for pneumonia with small right-sided pleural effusion Patient is being admitted to the hospital for hypoxia and further treatment of pneumonia -- Code stroke was called on patient and he has been moved to ICU; recall care team on board -- Stat CT of the head and CTA head and neck was unremarkable -- Neurology is consulted for right-sided weakness and right facial droop -- No further episodes of hematemesis reported; hemoglobin remains stable; general surgery on consult -Patient remains on PPI Objective - Vital Signs Vital signs: Vital Signs Temp 96.5 F L 10/19/23 08:00 Pulse 60 10/19/23 07:00 Resp 12 10/19/23 08:15 BP 132/69 10/19/23 08:30 Pulse Ox 94 L 10/19/23 08:15 FiO2 Intake & Output 10/18/23 10/19/23 10/19/23 18:59 06:59 18:59 Intake Total 2371.147 130 Output Total 745 150 Balance 1626.147 -20 Weight 104.326 kg 105.6 kg Intake: Intake, IV Titration 2371.147 130 Amount Norepinephrine 4 mg In 71.147 Sodium Chloride 0.9% 250 ml @ 0.05 MCG/KG/MIN 19. 874 mls/hr IV .[id number] [facility] Rx#:[id number] Sodium Chloride 0.9% 1, 1300 130 000 ml @ 130 mls/hr IV . Q7H42M [facility] Rx#:[id number] Sodium Chloride 0.9% 1, 1000 000 ml @ 999 mls/hr IV . Q1H1M [facility] Rx#:[id number] Output: Urine 745 150 Other: Voiding Method Diaper Indwelling Catheter - Exam General appearance: Patient is of stated age; sleepy but arousable; in no acute distress EENT Eyes: Present: anicteric sclerae, EOMI, PERRLA, normal appearance ENT: Present: hearing grossly normal, normal oropharynx Neck: Present: normal ROM. Absent: lymphadenopathy, rigidity, thyromegaly Thyroid: bilateral: normal size, negative: enlarged, nodule Respiratory: Scattered bilateral wheezes and rhonchi: Rales both lower lung suggs Cardiovascular: regular: normal: S1, S2 Abnormal Heart Sounds: Absent: systolic murmur, diastolic murmur Gastrointestinal; abdomen is soft and nontender nondistended; bowel sounds are positive Genitourinary Comment(s): deferred Neurologic: Patient moves all extremities; no gross motor or sensory deficit Musculoskeletal: Present: gait normal, strength equal bilaterally - Labs CBC & Chem 7: 10/19/23 05:22 10/19/23 05:22 Labs: Abnormal Lab Results - Last 24 Hours (Table) 10/18/23 10/18/23 10/18/23 Range/Units 11:13 18:25 18:25 WBC 11.6 H 10.9 H (3.8-10.6) k/uL RBC 3.88 L (4.30-5.90) m/uL Hgb 12.0 L 10.5 L (13.0-17.5) gm/dL Hct 37.5 L 34.2 L (39.0-53.0) % MCHC 30.8 L (31.0-37.0) g/dL RDW 16.8 H 16.6 H (11.5-15.5) % Neutrophils # 11.0 H 10.0 H (1.3-7.7) k/uL Lymphocytes # 0.2 L 0.5 L (1.0-4.8) k/uL Chloride 117 H (98-107) mmol/L Carbon Dioxide 20 L (22-30) mmol/L BUN 51 H (9-20) mg/dL Glucose (74-99) mg/dL Calcium 7.8 L (8.4-10.2) mg/dL 10/19/23 10/19/23 Range/Units 05:22 05:22 WBC (3.8-10.6) k/uL RBC 3.74 L (4.30-5.90) m/uL Hgb 10.3 L (13.0-17.5) gm/dL Hct 33.5 L (39.0-53.0) % MCHC 30.9 L (31.0-37.0) g/dL RDW 16.6 H (11.5-15.5) % Neutrophils # (1.3-7.7) k/uL Lymphocytes # 0.8 L (1.0-4.8) k/uL Chloride 119 H (98-107) mmol/L Carbon Dioxide 21 L (22-30) mmol/L BUN 45 H (9-20) mg/dL Glucose 59 L (74-99) mg/dL Calcium 7.7 L (8.4-10.2) mg/dL Assessment and Plan Assessment: 1. Hypoxia; related to bilateral lower lobe pneumonia; concern for possible aspiration -Chest x-ray reveals lower lobe consolidation likely pneumonia with small right- sided pleural effusion; influenza AMB is negative; COVID-19 is negative; RSV PCR negative -WBC elevated at 10.9; Actiq acid within normal limit -Patient has been placed on Zosyn 3.375 g IV every 8 hours -Will add DuoNeb nebulizer treatments 4 times daily and as needed -Monitor CBC, CRP and procalcitonin -- Consult pulmonary for further recommendations 2. Mild JUSTIN; creatinine is within normal limit at 1.13; BUN elevated at 51 -Patient is currently on IV fluids in form of normal saline currently at rate of 130 cc an hour; we will monitor TOOTIE's, daily weights, renal function jorge a ctrolytes; avoid nephrotoxins and hypotension 3. Altered mental status; likely toxic metabolic encephalopathy related to pneumonia and JUSTIN; patient is reported to be at baseline at this time 4. Hypertension; patient was found to be hypotensive at the rehab facility; blood pressure is currently stable; takes lisinopril 5 mg daily along with Lasix 20 mg Friday and Friday; we will hold off on Lasix and lisinopril given mild JUSTIN 5. BPH; Proscar 5 mg nightly; will resume home meds once oral intake is established 6. Gastroesophageal reflux disease; takes Protonix 40 mg daily; will continue IV Protonix DVT prophylaxis; SCDs/subcu heparin CODE STATUS; full code
--- NOTE | 2023-10-19 15:35 | P.CNNES ---
History of Present Illness Consult date: 10/19/23 Requesting physician: Yonis Martinez Reason for Consult: Possible CVA History of Present Illness: Patient is a 78-year-old right-handed male came to the hospital by ambulance yesterday at 8:33 AM for hypoxic respiratory failure. As per EMS flowsheet, when they arrived at the scene, 2 nurses and the ENERGY PROJECT ENGINEER were at the patient's bedside. Patient is found laying Semi-Aiken's in bed and is leaning heavily to the right side in bed. Patient has coffee-ground emesis on his gown and bedding. Patient has nasal cannula on 2 L/min. Patient has obviously facial droop to the left. Nurse mentioned that patient was sent yesterday to [facility] for hypotension and vomiting and returned around noon of the same day with nothing found/no treatments. Nurse mentioned that blood pressure found yesterday around 1 PM to be 80s/60s. Nurse mentioned that patient has been confused and altered mental status all night with numerous bouts of coffee- ground emesis vomiting. Nurse mentioned that they found the patient this morning satting at low 80s on room air and placed the patient on 2 L/min. Blood glucose was 103. Patient currently receiving antibiotic for aspiration pneumonia. Nurse mentioned that patient does have facial droop since a fall off the toilet over a week ago. Patient has Parkinson's. Patient's vitals at the scene was blood pressure 70/50, pulse rate 91, respirations 16 repeat blood p ressure 63/49. Patient was initially admitted to [facility]. Patient developed hypotension with blood pressure around 60/40 with no improvement to fluid resuscitation. Patient was started on Levophed and was transferred to the ICU. Patient stayed on Levophed from midnight to 6:30 AM. Apparently this morning at 7:45 AM, the nurse noted that patient was having right-sided weakness with the right lower extremity and right upper extremity contracted, right sided cheese wrapper strength was weaker with right facial drooping and decreased sensation in the right upper and lower extremity. Patient's sister was not aware of patient's baseline status. She was not aware if patient has any history of strokes or contractures. Code stroke was called at 8:25 AM. Patient's initial NIH stroke scale at 8:27 AM was 20. Repeat NIH stroke scale at 854 was 7. The nursing staff discussed with Dr. Hopson who did not recommend thrombolysis. The nurse spoke to the staff at [facility] and they mentioned that patient was sent to the hospital because of right-sided facial droop and garbled speech. However there was no history of right-sided extremity deficits. Patient's vitals was blood pressure 104/65 saturation 93%. Vital signs on arrival blood pressure 103/68 with pulse rate 89 temperature 94.5 . Patient is now euthermic. Blood test shows WBC 11.6, hemoglobin 12.0, platelets are normal. PT PTT normal. CMP is normal. Troponin negative. Stool all occult blood negative. Influenza, RSV and coronavirus PCR negative. EKG showed sinus rhythm with first-degree AV block. Chest x-ray revealed lower lobe consolidation. Correlate for pneumonia. Follow-up is recommended. Small right pleural effusion. CT head revealed no acute intracranial process. Prominent atrophy with chronic appearing patchy confluent white matter ischemic changes. CTA of head and neck reported no flow-limiting stenosis bilateral carotid bifurcations. Normal [place]. Patient's home medication includes lisinopril, Sinemet 25/100, 2 tablets 3 times daily, Lasix, Proscar, midodrine 5 mg twice daily, Protonix, risperidone 0.25 mg twice daily, omeprazole and azithromycin. Patient does not take any antiplatelet medication at home. Patient states that he does not walk. Patient was not clear if he uses any device or is wheelchair-bound. I spoke to patient's sister Mandi as well, who states that patient was diagnosed with Parkinson's disease around 2019 or 2019. Since he underwent total knee arthroplasty in 2020, he has been wheelchair-bound, with total lift assist. Prior to that he was lift assist, but was able to take some shuffling steps with his walker. Review of Systems As mentioned in HPI including all pertinent positives and negatives. Patient states that "other day he had chest pain. He admits to having "a little headache". He denies any nausea although he did vomit yesterday. Patient has peripheral edema. Patient has shortness of breath. Past Medical History Past Medical History: Hypertension Additional Past Medical History / Comment(s): Parkinsons, CKD History of Any Multi-Drug Resistant Organisms: None Reported Past Surgical History: No Surgical Hx Reported Additional Past Surgical History / Comment(s): left knee repair Past Anesthesia/Blood Transfusion Reactions: No Reported Reaction Smoking Status: Former smoker Past Alcohol Use History: None Reported Medications and Allergies Home Medications Medication Instructions Recorded Confirmed Type Carbidopa-Levodopa 25-100 mg 2 tab PO TID@0800,1400,2100 08/09/23 10/18/23 Hist ory [Sinemet 25-100 mg] Finasteride [Proscar] 5 mg PO HS 08/09/23 10/18/23 History Furosemide [Lasix] 20 mg PO MOWEFR@1400 08/09/23 10/18/23 History Magnesium Hydroxide [Milk of 7,200 ml PO DIRECTED PRN 08/09/23 10/18/23 History Magnesia Concentrate] Na Phos,M-B/Na Phos,Di-Ba [Fleet 133 ml RECTAL DAILY PRN 08/09/23 10/18/23 History Adult] Potassium Chloride ER [K-Dur 10] 10 meq PO MOWEFR@0800 08/09/23 10/18/23 History Promethazine Hcl Injection Solution 25 mg IM Q6H PRN 08/09/23 10/18/23 History bisacodyL [Dulcolax] 10 mg RECTAL DAILY PRN 08/09/23 10/18/23 History guaiFENesin [guaiFENesin Oral 100 mg PO Q4H PRN 08/09/23 10/18/23 History Solution] lisinopriL [Zestril] 5 mg PO DAILY@0800 08/09/23 10/18/23 History polyethylene glycoL 3350 [Miralax] 17 gm PO DAILY@0800 08/09/23 10/18/23 History Azithromycin [Zithromax Z Pack] See Taper PO DIRECTED@1200 10/18/23 10/18/23 History Midodrine [ProAmatine] 5 mg PO BID@0800,1700 10/18/23 10/18/23 History Omeprazole [PriLOSEC] 20 mg PO DAILY@0800 10/18/23 10/18/23 History Pantoprazole [Protonix] 40 mg PO DAILY@0800 10/18/23 10/18/23 History risperiDONE [RisperDAL] 0.25 mg PO BID@0800,1700 10/18/23 10/18/23 History Allergies Allergy/AdvReac Type Severity Reaction Status Date / Time peanut Allergy Anaphylaxis Verified 10/18/23 10:06 Physical Examination - Vital Signs Vital Signs: Vital Signs Temp Pulse Pulse Resp BP BP Pulse Ox 10/19/23 11:00 56 L 8 L 104/65 94 L 10/19/23 10:45 62 9 L 113/63 93 L 10/19/23 10:30 55 L 10 L 107/56 95 10/19/23 10:15 58 L 10 L 97/61 94 L 10/19/23 10:00 57 L 13 98/67 93 L 10/19/23 09:45 58 L 14 87/57 94 L 10/19/23 09:30 60 16 91/58 93 L 10/19/23 09:15 65 12 107/58 90 L 10/19/23 09:00 14 91/74 93 L 10/19/23 08:45 132/69 10/19/23 08:30 132/69 10/19/23 08:15 12 109/66 94 L 10/19/23 08:00 96.5 F L 10 L 166/123 91 L 10/19/23 07:45 9 L 89/77 93 L 10/19/23 07:30 10 L 111/74 92 L 10/19/23 07:15 11 L 117/64 94 L 10/19/23 07:00 60 10 L 125/81 92 L 10/19/23 06:45 66 10 L 124/66 91 L 10/19/23 06:30 72 8 L 123/68 90 L 10/19/23 06:15 71 12 125/61 95 10/19/23 06:00 76 28 H 120/67 95 10/19/23 05:45 66 22 119/61 92 L 10/19/23 05:30 70 20 126/84 92 L 10/19/23 05:15 71 20 126/64 97 10/19/23 05:00 71 18 123/66 96 10/19/23 04:45 71 12 118/67 97 10/19/23 04:30 71 12 119/71 97 10/19/23 04:15 65 12 123/65 95 10/19/23 04:00 71 12 126/68 97 10/19/23 03:45 72 9 L 126/78 96 10/19/23 03:30 79 16 122/63 96 10/19/23 03:15 68 18 122/63 96 10/19/23 03:00 75 12 121/91 95 10/19/23 02:45 69 12 120/69 96 10/19/23 02:30 81 12 122/65 97 10/19/23 02:15 75 10 L 119/70 96 10/19/23 02:00 72 10 L 115/63 96 10/19/23 01:45 74 9 L 113/65 97 10/19/23 01:30 71 12 113/66 97 10/19/23 01:15 69 12 97/62 97 10/19/23 01:00 75 12 82/62 97 10/19/23 00:45 59 L 18 96/51 95 10/19/23 00:30 10 L 85/51 90 L 10/19/23 00:20 76 14 85/51 92 L 10/19/23 00:15 76 24 105/46 92 L 10/19/23 00:00 78 24 118/78 93 L 10/18/23 23:45 22 117/71 94 L 10/18/23 23:30 80 18 93/74 95 10/18/23 23:15 70 12 104/52 87 L 10/18/23 23:00 75 12 116/90 94 L 10/18/23 22:45 76 18 120/68 93 L 10/18/23 22:30 12 104/71 94 L 10/18/23 22:15 14 98/79 93 L 10/18/23 22:00 12 122/104 92 L 10/18/23 21:45 16 89/57 93 L 10/18/23 21:30 24 86/54 91 L 10/18/23 21:15 11 L 89/68 92 L 10/18/23 21:00 19 101/63 95 10/18/23 20:45 14 93/64 95 10/18/23 20:30 68 13 81/44 95 10/18/23 20:15 57 L 9 L 94/52 92 L 10/18/23 20:00 65 12 95 10/18/23 19:59 59 L 32 H 96 10/18/23 18:53 58 L 72/35 10/18/23 18:45 54 L 64/40 10/18/23 18:33 54 L 17 72/41 95 10/18/23 17:48 59 L 17 65/47 94 L 10/18/23 17:45 16 10/18/23 17:40 63 16 67/41 92 L 10/18/23 17:00 69 17 78/45 93 L 10/18/23 16:45 72 18 88/57 93 L 10/18/23 16:15 97.5 F L 80 20 109/69 93 L 10/18/23 15:45 97.4 F L 81 20 82/61 93 L 10/18/23 14:30 82 18 93/72 92 L 10/18/23 12:10 78 16 122/78 90 L Intake and Output 10/18/23 10/19/23 10/19/23 22:59 06:59 14:59 Intake Total 1260 1111.147 750 Output Total 380 365 330 Balance 880 746.147 420 Intake: IV 620 Piperacillin-Tazobactam 3 100 .375 gm In Sodium Chloride 0.9% 100 ml @ 25 mls/hr IVPB Q8H [facility] Rx#: [id number] Sodium Chloride 0.9% 1, 520 000 ml @ 130 mls/hr IV . Q7H42M [facility] Rx#:[id number] Intake, IV Titration 1260 1111.147 130 Amount Norepinephrine 4 mg In 71.147 Sodium Chloride 0.9% 250 ml @ 0.05 MCG/KG/MIN 19. 874 mls/hr IV .[id number] [facility] Rx#:[id number] Sodium Chloride 0.9% 1, 260 1040 130 000 ml @ 130 mls/hr IV . Q7H42M [facility] Rx#:[id number] Sodium Chloride 0.9% 1, 1000 000 ml @ 999 mls/hr IV . Q1H1M [facility] Rx#:[id number] Output: Urine 380 365 330 Other: Voiding Method Diaper Indwelling Catheter Indwelling Catheter Weight 104.326 kg 105.6 kg Patient is an elderly male, who is laying in the bed, in no acute distress. Patient is mildly encephalopathic, keeps his eyes closed. Patient does answer appropriately although has some hoarse voice, mumbling speech. At times difficult to understand. Patient states it is March and the year is 2003. He believes that he is currently in a private home in [facility]. He knows his date of of 1945. Patient can name objects very well, and can repeat. No obvious aphasia. Attention, concentration and fund of knowledge is limited. On cranial nerve examination, pupils are equal, round and reacting to light, visual suggs are full on confrontation, with no neglect on double simultaneous stimulation. Extraocular muscles are intact with no nystagmus. Patient has left facial droop, which is probably chronic. Palatal elevation and sensation difficult to assess, hearing is moderately decreased and shoulder shrug normal, facial sensation normal. On muscle strength testing, there is no pronator drift and the strength is normal in arms distally and proximally. In the lower limbs, patient's ankle dorsiflexion are normal. Hip flexion is only 1-2 bilaterally. Patient has mild to moderate tremors with some jerking of outstretched hands. No tremors at re st. Deep tendon reflexes are (right/left) biceps 2/1+, brachioradialis 2/1+, knees are diminished and plantars are downgoing bilaterally. Sensory to touch is equal with no neglect on double simultaneous stimulation. Cerebellar function showed no ataxia for [id number] testing, although patient was moderately shaky for [id number] testing bilaterally. Cannot check for ataxia in the lower limbs. Tone is at least moderately increased bilaterally with leg evidence of cogwheeling and bulk of muscles normal. Gait patient nonambulatory.. Patient has evidence of left knee arthroplasty sca r bilaterally. On general examination, there is no carotid bruit or murmur, S1-S2 audible. Chest is clear on consultation. Abdomen is soft nontender. No organomegaly, bowel sounds present. Patient has peripheral edema. Results - Laboratory Findings CBC and BMP: 10/19/23 05:22 10/19/23 05:22 Abnormal Lab Findings: Abnormal Labs 10/18/23 10/18/23 10/18/23 09:06 11:13 18:25 WBC 11.6 H 10.9 H RBC 3.88 L Hgb 12.0 L 10.5 L Hct 37.5 L 34.2 L MCHC 30.8 L RDW 16.8 H 16.6 H Neutrophils # 11.0 H 10.0 H Lymphocytes # 0.2 L 0.5 L Chloride 112 H Carbon Dioxide BUN 48 H Glucose Calcium 08/31/24 09/01/24 09/01/24 18:25 05:22 05:22 WBC RBC 3.74 L Hgb 10.3 L Hct 33.5 L MCHC 30.9 L RDW 16.6 H Neutrophils # Lymphocytes # 0.8 L Chloride 117 H 119 H Carbon Dioxide 20 L 21 L BUN 51 H 45 H Glucose 59 L Calcium 7.8 L 7.7 L Assessment and Plan Assessment: * Possible stroke/TIA manifesting with right-sided weakness, which now seems to have resolved. Current NIH stroke scale is 1, just residual left facial droop, which is likely chronic in nature. Otherwise examination is nonfocal. Uncertain if these transient focal symptoms were related to prior hypotension. * Hypotension, possibly due to sepsis, now resolved * Hematemesis, now resolved * Parkinson's disease versus drug-induced parkinsonism from being on risperidone 0.25 mg twice daily. Patient is wheelchair-bound. * Acute right sided pneumonia * Dementia * History of hypertension * History of GERD/erosive esophagitis * Chronic renal disease, mild * Anemia Plan: * Patient had a CTA of head and neck, which revealed no flow-limiting stenosis bilateral carotid bifurcations. Normal [place]. * Check 2D echo, rule out embolic source. * Fasting a.m. lipid panel * Hemoglobin A1c * Consider starting aspirin 81 mg daily, if no medical contraindications. Patient currently has hematemesis, therefore we will defer to IM/surgery. * Neurochecks every 4 hours. * Patient on Zosyn for pneumonia. * Patient carries a diagnosis of Parkinson's disease. He is also on Risperdal 0.25 mg twice daily, which can produce drug-induced parkinsonism. Patient currently on Sinemet 25/100, 2 tablets 3 times daily, which will be continued. * Patient is n.p.o. at this time, until cleared by speech therapy. Also PT/OT. * Patient also on midodrine 5 mg twice daily. * Discussed with patient's sister in detail as well. * Neurology will follow. Thank you for the consult. Time with Patient: Greater than 30
[2023-10-19] MEDS: DEXTROSE 5% IN WATER 1,000 ML IV SCH (17:35)
[2023-10-19 17:40] LABS: Glucose,Whole Blood 65 mg/dL (70-110)
[2023-10-19 18:03] LABS: Glucose,Whole Blood 128 mg/dL (70-110)
[2023-10-19 20:37] LABS: Glucose,Whole Blood 82 mg/dL (70-110)
[2023-10-20 00:16] LABS: Glucose,Whole Blood 68 mg/dL (70-110)
[2023-10-20 01:24] LABS: Glucose,Whole Blood 100 mg/dL (70-110)
--- NOTE | 2023-10-20 06:29 | XR ---
EXAMINATION TYPE: XR chest 1V portable DATE OF EXAM: 10/20/2023 COMPARISON: 10/18/2023 HISTORY: Right lower lobe infiltrate follow-up TECHNIQUE: Single frontal view of the chest is obtained. FINDINGS: A right lower lobe infiltrate persists however there is better aeration in the right lower lobe. Ther e is hazy density in the left lower lobe. The pulmonary vasculature appears cephalized and mildly con gested. The heart size is prominent. The findings suggest the presence of CHF and pulmonary edema alt sandra bibasilar pneumonia not excluded. Clinical correlation recommended. There is no pneumothorax or large pleural effusion. The osseous structures are intact. IMPRESSION: Acute cardiopulmonary disease as described above. IMPRESSION: No acute process.
[2023-10-20 07:04] LABS: Glucose,Whole Blood 76 mg/dL (70-110)
[2023-10-20] MEDS: risperiDONE 0.25 MG TAB PO SCH (09:11)
--- NOTE | 2023-10-20 10:21 | P.PN ---
Subjective Progress Note Date: 10/20/[address] Per [address] note [address] Spangler "Pulmonary consult dated October 19, 2023. 78-year-old male seen in the emergency department, on October 17. He apparently came in from the long term, with mental status changes. He was brought in by EMS. The patient has a history of Parkinson's disease, GI bleed, otto roesophageal reflux disease, hypertension, chronic kidney disease. The patient was seen the day before in the emergency department, for possible hematemesis, labs are stable, his blood pressure was normal, and he was discharged. At [facility], he apparently became hypotensive, with mental status changes, and low saturations, and he was brought back to the emergency department. I was called, from the hospital service, yesterday, about this patient. He was on the floor, as a DNR patient, was apparently hypotensive despite fluid resuscitation, and the patient was transferred to the intensive care unit, for possible norepinephrine administration. Initially, according to the charge nurse in the ICU, the patient did not require norepinephrine. At about midnight, the patient's blood pressure dropped, and he was placed on 3.15 mcg/min of norepinephrine, from midnight to 6:30 AM. This morning, the nurse who has the patient, noted that the patient had a right facial droop, and right upper ex tremity weakness. The right lower extremity was contracted chronically. He does have a chronic tremor because of his Parkinson's. It is not clear whether or not these changes are new or old, so therefore a code stroke was called. Chest x-ray on admission shows a possible right lower lobe pneumonia. Brain CT this morning, shows no acute intracranial process. There is prominent atrophy, with a chronic appearing patchy white matter ischemic changes. Angiography CT showed no flow-limiting stenotic areas. White count 8.9, hemoglobin 10.3, hematocrit 33.5, and platelet count 211,000. Sodium 144, potassium 4.2, chlorides 119, CO2 21, BUN 45, creatinine 1.03. Calcium is 7.7. He tested neg ative for influenza, RSV, and coronavirus." Patient was seen and examined in the ICU on October 19. Patient was noted to have some right facial droop and right upper extremity weakness yesterday how ever head CT showed no acute intracranial processes. Patient was alert today, not in acute distress. He is not tolerating oral intake. His O2 sat is 91% at 3L via Nasal cannula. He is receiving D5W at 50 mls/hr. No updated labs from today. Labs on 10/18 showed White count 8.9, hemoglobin 10.3, hematocrit 33.5, platelet count 211,000, sodium 144, potassium 4.2, chlorides 119, CO2 21, BUN 45 , creatinine 1.03, Calcium 7.7. Chest X ray performed on 10/19 showed no acute findings. Neurology saw the patient yesterday and noted the patient to have some residual left facial droop, which is likely chronic in nature. Objective - Vital Signs Vital signs: Vital Signs Temp 97.7 F 10/20/23 09:00 Pulse 75 10/20/23 09:00 Resp 16 10/20/23 09:00 BP 118/76 10/20/23 09:00 Pulse Ox 92 L 10/20/23 09:00 FiO2 Intake & Output 10/19/23 10/20/23 10/20/23 18:59 06:59 18:59 Intake Total 1160 400 Output Total 895 350 Balance 265 50 Weight 105.6 kg Intake: IV 1030 400 Dextrose 5% in Water 1, 150 400 000 ml @ 50 mls/hr IV . Q20H [facility] Rx#:[id number] Piperacillin-Tazobactam 3 100 .375 gm In Sodium Chloride 0.9% 100 ml @ 25 mls/hr IVPB Q8H [facility] Rx#: [id number] Sodium Chloride 0.9% 1, 780 000 ml @ 130 mls/hr IV . Q7H42M [facility] Rx#:[id number] Intake, IV Titration 130 Amount Sodium Chloride 0.9% 1, 130 000 ml @ 130 mls/hr IV . Q7H42M [facility] Rx#:[id number] Output: Urine 895 350 Other: Voiding Method Indwelling Catheter Indwelling Catheter - Exam General: Not in acute distress. Patient on 3L Oxygen via nasal cannula. HEENT: Unremarkable. Moist oral mucosa. Cardiovascular: Regular heart rate, no murmurs. Respiratory: Mild rhonchi. No wheezing or crackles. O2 sat at 91% on 3L Oxygen via nasal cannula. Abdominal: Soft, nondistended, nontender to palpation. Extremities: Intact. No lower extremity edema. Skin: No rash or lesions. Musculoskeletal: Decreased right lower extremity strength compare to the left. - Labs CBC & Chem 7: 10/19/23 05:22 10/19/23 05:22 Labs: Abnormal Lab Results - Last 24 Hours (Table) 10/19/23 10/19/23 10/20/23 Range/Units 17:38 18:01 00:15 POC Glucose (mg/dL) 65 L 128 H 68 L (70-110) mg/dL Assessment and Plan Assessment: Assessment: Acute hypoxemic respiratory failure, secondary to right-sided pneumonia. Acute hypotension, possibly related to underlying sepsis. History of Parkinson's disease. Possible new neurologic findings, including right facial droop, and right upper extremity weakness. History of gastroesophageal reflux disease. History of GI bleed. History of erosive esophagitis. History of hypertension. History of chronic kidney disease. Plan: Plan dated October 20, 2023. The patient is on 3L oxygen via nasal cannula. His O2 saturation is 91%. He is getting D5W at 50 cc an hour. The patient is a DO NOT RESUSCITATE patient. The patient is currently on Zosyn for possible pneumonia and sepsis. Labs, x- rays, and all medications are reviewed. Prognosis is guarded. Neurology saw patient yesterday and noted the patient to have some left facial droop, which is likely chronic in nature. Brain CT and CTA of head and neck performed yesterday which showed normal findings. We have been in touch with the family about CODE STATUS, and additional orders, and, we will wait for their input. We will continue to follow. Time with Patient: Greater than 30 Time with Patient: Greater than 30
--- NOTE | 2023-10-20 12:21 | P.PN ---
Subjective Progress Note Date: 10/20/23 Patient seen and evaluate at bedside. Patient doing well, no bloody bowel movement, no emesis. Objective - Vital Signs Vital signs: Vital Signs Temp 97.7 F 10/20/23 12:00 Pulse 71 10/20/23 12:00 Resp 14 10/20/23 12:00 BP 111/48 10/20/23 12:00 Pulse Ox 94 L 10/20/23 12:00 FiO2 Intake & Output 10/19/23 10/20/23 10/20/23 18:59 06:59 18:59 Intake Total 1160 400 400 Output Total 895 350 Balance 265 50 400 Weight 105.6 kg Intake: IV 1030 400 400 Dextrose 5% in Water 1, 150 400 400 000 ml @ 50 mls/hr IV . Q20H [facility] Rx#:[id number] Piperacillin-Tazobactam 3 100 .375 gm In Sodium Chloride 0.9% 100 ml @ 25 mls/hr IVPB Q8H [facility] Rx#: [id number] Sodium Chloride 0.9% 1, 780 000 ml @ 130 mls/hr IV . Q7H42M [facility] Rx#:[id number] Intake, IV Titration 130 Amount Sodium Chloride 0.9% 1, 130 000 ml @ 130 mls/hr IV . Q7H42M [facility] Rx#:[id number] Output: Urine 895 350 Other: Voiding Method Indwelling Catheter Indwelling Catheter - Exam gen: nad cv: rrr pul: non labored breathing abd: soft, non tender to palpation, no guarding or rebound tenderness - Labs CBC & Chem 7: 10/19/23 05:22 10/19/23 05:22 Labs: Abnormal Lab Results - Last 24 Hours (Table) 10/19/23 10/19/23 10/20/23 Range/Units 17:38 18:01 00:15 POC Glucose (mg/dL) 65 L 128 H 68 L (70-110) mg/dL Assessment and Plan Assessment: 78-year-old male with concern for hematemesis -no signs of bleeding -hgb stable -ok for diet Time with Patient: Less than 30
[2023-10-20 12:39] LABS: Glucose,Whole Blood 79 mg/dL (70-110)
[2023-10-20 12:49] LABS: Chol/HDL Ratio 2.33 Ratio
[2023-10-20 17:07] LABS: Glucose,Whole Blood 79 mg/dL (70-110)
--- NOTE | 2023-10-20 22:31 | P.PN ---
Subjective 78-year old male with past medical history of hypertension, Parkinson's, CKD who presents emergency department with altered mental status and possible GI bleed. Patient has had GI bleed before in the past due to erosive esophagitis. This was found on an EGD which was done in July. Patient does remain on proton pump inhibitors. Patient was seen yesterday in the emergency department for hematemesis. Labs were stable as well as his blood pressure and he was discharged home. Presents again today from [facility] for hypotension, altered mental status and hypoxia. Patient was found to be saturating in the 80s at the rehab facility. He has no history of COPD, asthma or congestive heart failure. Patient does not wear oxygen at the facility. They also found his blood pressure to be low. They state that he has had multiple episodes of dark vomiting. It upon arrival patient is able to communicate appropriately. He denies any pain. Denies shortness of breath. Admits to cough. Was recently diagnosed with pneumonia and was discharged on antibiotics. No fevers. No other alleviating, precipitating or modifying factors Blood work completed in ED reveals a WBC of 11.6, hemoglobin of 12 and platelet count of 172, sodium 143, potassium 4.7, BUNs/creatinine 48/1.08 and blood glucose of 98, troponin is less than 0.012, lactic acid level of 1.4, BNP of 201, stool occult blood is negative., Influenza A, B, RSV and COVID-19 is negat dayron Chest x-ray reveals lower lobe consolidation correlate for pneumonia with small right-sided pleural effusion Patient is being admitted to the hospital for hypoxia and further treatment of pneumonia -- Code stroke was called on patient and he has been moved to ICU; recall care team on board -- Stat CT of the head and CTA head and neck was unremarkable -- Neurology is consulted for right-sided weakness and right facial droop -- No further episodes of hematemesis reported; hemoglobin remains stable; general surgery on consult -Patient remains on PPI 10/19 Patient awake alert seen and examined today in the ICU He answers questions and follow commands He looks confused to time place and person He has left facial droop and generalized weakness, he could raise his right arm above his head but not the left arm, also he barely move both lower extremity when asked for. He is currently on 2 L oxygen via nasal cannula Objective - Vital Signs Vital signs: Vital Signs Temp 97.4 F L 10/20/23 07:00 Pulse 73 10/20/23 07:30 Resp 11 L 10/20/23 07:30 BP 123/79 10/20/23 07:30 Pulse Ox 93 L 10/20/23 07:30 FiO2 Intake & Output 10/19/23 10/20/23 10/20/23 18:59 06:59 18:59 Intake Total 1160 400 Output Total 895 350 Balance 265 50 Weight 105.6 kg Intake: IV 1030 400 Dextrose 5% in Water 1, 150 400 000 ml @ 50 mls/hr IV . Q20H [facility] Rx#:[id number] Piperacillin-Tazobactam 3 100 .375 gm In Sodium Chloride 0.9% 100 ml @ 25 mls/hr IVPB Q8H [facility] Rx#: [id number] Sodium Chloride 0.9% 1, 780 000 ml @ 130 mls/hr IV . Q7H42M [facility] Rx#:[id number] Intake, IV Titration 130 Amount Sodium Chloride 0.9% 1, 130 000 ml @ 130 mls/hr IV . Q7H42M [facility] Rx#:[id number] Output: Urine 895 350 Other: Voiding Method Indwelling Catheter Indwelling Catheter - Exam -GENERAL: The patient is alert and awake, weak and lethargic HEENT: Pupils are round and equally reacting to light. EOMI. No scleral icterus. No conjunctival pallor. Normocephalic, atraumatic. No pharyngeal erythema. No thyromegaly. CARDIOVASCULAR: S1 and S2 present. No murmurs, rubs, or gallops. PULMONARY: Chest is clear to auscultation, no wheezing , no crackles. ABDOMEN: Soft, nontender, nondistended, normoactive bowel sounds. No palpable organomegaly. MUSCULOSKELETAL: No joint swelling or deformity. EXTREMITIES: No cyanosis, clubbing, or pedal edema. -NEUROLOGICAL: Has difficulty moving extremities, he could raise his right arm above his head. Left facial droop. Rest of cranial nerves are grossly intact SKIN: No rashes. no petechiae.Transfer text - Labs CBC & Chem 7: 10/19/23 05:22 10/19/23 05:22 Labs: Abnormal Lab Results - Last 24 Hours (Table) 10/19/23 10/19/23 10/20/23 Range/Units 17:38 18:01 00:15 POC Glucose (mg/dL) 65 L 128 H 68 L (70-110) mg/dL Assessment and Plan Assessment: 1. Hypoxia; related to bilateral lower lobe pneumonia; concern for possible aspiration -Chest x-ray reveals lower lobe consolidation likely pneumonia with small right- sided pleural effusion; influenza AMB is negative; COVID-19 is negative; RSV PCR negative -WBC elevated at 10.9; Actiq acid within normal limit -Patient has been placed on Zosyn 3.375 g IV every 8 hours -Will add DuoNeb nebulizer treatments 4 times daily and as needed -Monitor CBC, CRP and procalcitonin -- Consult pulmonary for further recommendations 2. Mild JUSTIN; creatinine is within normal limit at 1.13; BUN elevated at 51 -Patient is currently on IV fluids in form of normal saline currently at rate of 130 cc an hour; we will monitor TOOTIE's, daily weights, renal function electrolytes; avoid nephrotoxins and hypotension 3. Altered mental status; likely toxic metabolic encephalopathy related to pneumonia and JUSTIN; patient is reported to be at baseline at this time 4. Hypertension; patient was found to be hypotensive at the rehab facility; blood pressure is currently stable; takes lisinopril 5 mg daily along with Lasix 20 mg Friday and Friday; we will hold off on Lasix and lisinopril given mild JUSTIN 5. BPH; Proscar 5 mg nightly; will resume home meds once oral intake is established 6. Gastroesophageal reflux disease; takes Protonix 40 mg daily; will continue IV Protonix 7. Possible stroke/TIA manifesting with right-sided weakness, neurology following DVT prophylaxis; SCDs/subcu heparin CODE STATUS; full code
[2023-10-21 03:32] LABS: Glucose,Whole Blood 72 mg/dL (70-110)
[2023-10-21 05:38] LABS: Anisocytosis Slight; HCT 31.1 % (39.0-53.0); HGB 9.8 gm/dL (13.0-17.5); Hypochromasia Marked; MCH 27.2 pg (25.0-35.0); MCHC 31.5 g/dL (31.0-37.0); MCV 86.4 fL (80.0-100.0); Mean Platelet Volume 9.5; Platelet Count 182 k/uL (150-450); RDW 17.1 % (11.5-15.5); WBC 7.3 k/uL (3.8-10.6)
[2023-10-21 05:50] LABS: African American GFR (CKD) 72 (>60 ml/min/1.73 sqM); Anion Gap 3 mmol/L; Blood Urea Nitrogen 25 mg/dL (9-20); Calcium 8.4 mg/dL (8.4-10.2); Carbon Dioxide 23 mmol/L (22-30); Chloride 115 mmol/L (98-107); Glucose 76 mg/dL (74-99); Non-African American GFR(CKD) 62 (>60 ml/min/1.73 sqM); Potassium 3.6 mmol/L (3.5-5.1); Sodium 141 mmol/L (137-145)
--- NOTE | 2023-10-21 07:49 | XR ---
EXAMINATION TYPE: XR chest 1V portable DATE OF EXAM: 10/21/2023 4:50 AM CLINICAL INDICATION: Male, 78 years old with history of right lower lobe consolidation; [facility] COMPARISON: Chest radiographs from 10/20/2023 TECHNIQUE: XR chest 1V portable Frontal view of the chest. FINDINGS: Lungs/Pleura: multifocal airspace opacities the right lung. No evidence of pneumothorax or pleural ef fusion. Pulmonary vascularity: Unremarkable. Heart/mediastinum: Cardiomediastinal silhouette is unremarkable. Musculoskeletal: No acute osseous pathology. Other findings: None Lines/Tubes: IMPRESSION: Airspace opacities in the right lung correlate for pneumonia.
--- NOTE | 2023-10-21 10:18 | P.PN ---
Subjective Progress Note Date: 10/20/23 Patient was seen for follow-up. Patient is somnolent, laying in the bed. Offers no complaints. He has failed swallow. Objective - Vital Signs Vital signs: Vital Signs Temp 97.7 F 10/20/23 12:00 Pulse 71 10/20/23 12:00 Resp 14 10/20/23 12:00 BP 111/48 10/20/23 12:00 Pulse Ox 94 L 10/20/23 12:00 FiO2 Intake & Output 10/19/23 10/20/23 10/20/23 18:59 06:59 18:59 Intake Total 1160 400 400 Output Total 895 350 Balance 265 50 400 Weight 105.6 kg Intake: IV 1030 400 400 Dextrose 5% in Water 1, 150 400 400 000 ml @ 50 mls/hr IV . Q20H [facility] Rx#:[id number] Piperacillin-Tazobactam 3 100 .375 gm In Sodium Chloride 0.9% 100 ml @ 25 mls/hr IVPB Q8H [facility] Rx#: [id number] Sodium Chloride 0.9% 1, 780 000 ml @ 130 mls/hr IV . Q7H42M [facility] Rx#:[id number] Intake, IV Titration 130 Amount Sodium Chloride 0.9% 1, 130 000 ml @ 130 mls/hr IV . Q7H42M [facility] Rx#:[id number] Output: Urine 895 350 Other: Voiding Method Indwelling Catheter Indwelling Catheter Indwelling Catheter - Exam Examination is essentially unchanged. Continues to have left facial droop otherwise unremarkable. Patient does have significantly increased tone and rigidity, getting worse. Patient is not receiving his Sinemet. - Labs CBC & Chem 7: 10/21/23 05:23 10/21/23 05:23 Labs: Abnormal Lab Results - Last 24 Hours (Table) 10/20/23 Range/Units 00:15 POC Glucose (mg/dL) 68 L (70-110) mg/dL Assessment and Plan Assessment: * Possible stroke/TIA manifesting with right-sided weakness, which now seems to have resolved. Current NIH stroke scale is 1, just residual left facial droop, which is likely chronic in nature. Otherwise examination is nonfocal. Uncertain if these transient focal symptoms were related to prior hypotension. * Hypotension, possibly due to sepsis, now resolved * Hematemesis, now resolved * Parkinson's disease versus drug-induced parkinsonism from being on risperidone 0.25 mg twice daily. Patient is wheelchair-bound. * Acute right sided pneumonia * Dementia * History of hypertension * History of GERD/erosive esophagitis * Chronic renal disease, mild * Anemia Plan: * Patient has not received his Sinemet for last few days. Therefore his Parkinson's is getting worse. Patient today agreed to have NG tube placed, so he can receive his Sinemet. GI has cleared for aspirin. Need to start aspirin as soon as possible. * CTA of head and neck, which revealed no flow-limiting stenosis bilateral carotid bifurcations. Normal [place]. * Await 2D echo, rule out embolic source. * Fasting a.m. lipid panel cholesterol 122, LDL 51, HDL 52 and triglycerides 93. Lipids are well-controlled. * Hemoglobin A1c 5.9 * We will start aspirin 81 mg daily, as GI has cleared. If cannot take by mouth, then recommend aspirin 300 mg rectally. * Neurochecks every 4 hours. * Patient on Zosyn for pneumonia. * Patient carries a diagnosis of Parkinson's disease. He is also on Risperdal 0.25 mg twice daily, which can produce drug-induced parkinsonism. Discontinue Risperdal. * Patient is n.p.o. at this time, until cleared by speech therapy. Also PT/OT. * Patient also on midodrine 5 mg twice daily.
[2023-10-21] MEDS: ASPIRIN 81 MG PO SCH (12:19)
--- NOTE | 2023-10-21 12:59 | CA ---
Transthoracic Echo Report Name: Albin Roland Age: 78 Gender: M : 1945 Exam Date: 10/21/2023 08:03 Exam Location: [facility] Ht (in): 70 Wt (lb): 232 Ordering Physician: Chris Pelaez MD Attending/Referring Phys: Voucher Clerk Alma Cook RDCS Procedure CPT: Indications: stroke/tia Cardiac Hx: Technical Quality: Good Contrast 1: Total Dose (mL): Contrast 2: Total Dose (mL): MEASUREMENTS (Male / Female) Normal Values 2D ECHO LV Diastolic Diameter PLAX 5.1 cm 4.2 - 5.9 / 3.9 - 5.3 cm LV Systolic Diameter PLAX 4.4 cm IVS Diastolic Thickness 1.4 cm 0.6 - 1.0 / 0.6 - 0.9 cm LVPW Diastolic Thickness 1.4 cm 0.6 - 1.0 / 0.6 - 0.9 cm LV Relative Wall Thickness 0.6 RV Internal Dim ED PLAX 3.9 cm LA Systolic Diameter LX 4.3 cm 3.0 - 4.0 / 2.7 - 3.8 cm LV Diastolic Volume MOD BP 74.7 cm??? 67 - 155 / 56 - 104 cm??? LV Systolic Volume MOD BP 28.8 cm??? 22 - 58 / 19 - 49 cm??? LV Ejection Fraction MOD BP 61.5 % >= 55 % LV Cardiac Index MOD BP 1410.7 cm???/min???m??? LV Diastolic Volume MOD 4C 71.7 cm??? LV Systolic Volume MOD 4C 35.6 cm??? LV Ejection Fraction MOD 4C 50.3 % LV Cardiac Index MOD 4C 1107.1 cm???/min???m??? LV Diastolic Length 4C 7.3 cm LV Systolic Length 4C 6.2 cm LV Diastolic Volume MOD 2C 71.0 cm??? LV Systolic Volume MOD 2C 22.2 cm??? LV Ejection Fraction MOD 2C 68.7 % LV Cardiac Index MOD 2C 1497.6 cm???/min???m??? LV Diastolic Length 2C 8.1 cm LV Systolic Length 2C 5.9 cm LA Volume 56.8 cm??? 18 - 58 / 22 - 52 cm??? LA Volume Index 24.5 cm???/m??? 16 - 28 cm???/m??? M-MODE Aortic Root Diameter MM 4.0 cm AV Cusp Separation MM 2.5 cm DOPPLER AV Peak Velocity 139.0 cm/s AV Peak Gradient 7.7 mmHg AI Peak Velocity 343.3 cm/s AI Peak Gradient 47.2 mmHg AI Pressure Half Time 604.6 ms MV Area PHT 3.1 cm??? Mitral E Point Velocity 103.6 cm/s Mitral A Point Velocity 81.0 cm/s Mitral E to A Ratio 1.3 MV Deceleration Time 246.0 ms TR Peak Velocity 297.8 cm/s TR Peak Gradient 35.5 mmHg Right Ventricular Systolic Press 40.3 mmHg FINDINGS Left Ventricle Left ventricular ejection fraction is estimated at 55-60 %. Moderately increased septal wall thickness. Left ventricular cavity size normal. Normal left ventricular wall motion. Right Ventricle Moderate right ventricular dilatation. Mild pulmonary hypertension. Right Atrium Normal right atrial size. No right atrial thrombus or mass seen. Left Atrium Mildly increased left atrial diameter. No left atrial thrombus or mass present. Mitral Valve Structurally normal mitral valve. Mild mitral regurgitation. Aortic Valve Trileaflet aortic valve. Mild aortic regurgitation. Tricuspid Valve Structurally normal tricuspid valve. Mild tricuspid regurgitation. Pulmonic Valve Structurally normal pulmonic valve. Trace to mild pulmonic regurgitation. Pericardium No pericardial effusion. Aorta Mild aortic dilatation at the level of the sinuses of valsalva 40 mm CONCLUSIONS Normal LV size and systolic function. Mild mitral and tricuspid regurgitation. Mild to moderate enlargement of right ventricle. Mildly elevated PA pressures of about 40 mmHg no pericardial effusion mild dilatation of aortic root Previewed by: Dr. Gabriel Sommers MD (Electronically Signed) Final Date: 21 October 2023 12:59
--- NOTE | 2023-10-21 13:16 | P.PN ---
Progress Note - Text Progress Note Date: 10/21/23 Pt Seen and Examined. NAEO. No further episodes of hematemesis VSS General-NAD Abdomen-soft, NTND 78-year-old male with concern for hematemesis -no signs of bleeding -hgb stable -ok for diet Isaac Vaughn DO [facility] [phone]
--- NOTE | 2023-10-21 13:24 | P.PN ---
Subjective Progress Note Date: 10/21/23 78-year-old male seen in the emergency department, on October 17. He apparently came in from the care home, with mental status changes. He was brought in by EMS. The patient has a history of Parkinson's disease, GI bleed, gastroesophageal reflux disease, hypertension, chronic kidney disease. The pa laury was seen the day before in the emergency department, for possible hematemesis, labs are stable, his blood pressure was normal, and he was discharged. At [facility], he apparently became hypotensive, with mental status changes, and low saturations, and he was brought back to the emergency departm ent. I was called, from the hospital service, yesterday, about this patient. He was on the floor, as a DNR patient, was apparently hypotensive despite fluid resuscitation, and the patient was transferred to the intensive care unit, for possible norepinephrine administration. Initially, according to the charge nurse in the ICU, the patient did not require norepinephrine. At about midnight, the patient's blood pressure dropped, and he was placed on 3.15 mcg/min of norepinephrine, from midnight to 6:30 AM. This morning, the nurse who has the patient, noted that the patient had a right facial droop, and right upper extremity weakness. The right lower extremity was contracted chronically. He does have a chronic tremor because of his Parkinson's. It is not clear whether or not these changes are new or old, so therefore a code stroke was called. Chest x-ray on admission shows a possible right lower lobe pneumonia. Brain CT this morning, shows no acute intracranial process. There is prominent atrophy, with a chronic appearing patchy white matter ischemic changes. Angiography CT showed no flow-limiting stenotic areas. White count 8.9, hemoglobin 10.3, hematocrit 33.5, and platelet count 211,000. Sodium 144, potassium 4.2, chlorides 119, CO2 21, BUN 45, creatinine 1.03. Calcium is 7.7. He tested negative for influenza, RSV, and coronavirus." Patient was seen and examined in the ICU on October 19. Patient was noted to have some right facial droop and right upper extremity weakness yesterday however head CT showed no acute intracranial processes. Patient was alert today, not in acute distress. He is not tolerating oral intake. His O2 sat is 91% at 3L via Nasal cannula. He is receiving D5W at 50 mls/hr. No updated labs from today. Labs on 10/18 showed White count 8.9, hemoglobin 10.3, hematocrit 33.5, platelet count 211,000, sodium 144, potassium 4.2, chlorides 119, CO2 21, BUN 45 , creatinine 1.03, Calcium 7.7. Chest X ray performed on 10/19 showed no acute findings. Neurology saw the patient yesterday and noted the patient to have some residual left facial droop, which is likely chronic in nature. On 10/21/2023, the patient is being seen for a follow-up. The patient has advanced Parkinson disease with cognitive impairments. The patient is currently being treated for pneumonia. He is unable to swallow and he has declined PEG tube insertion for feeding and nutritional support. His swallow mechanism is poor. He does have some adequate cough. Unable to bring up much of sputum. No significant respiratory distress on today's evaluation the patient is currently onOxygen at 3 L/min nasal cannula with pulse ox of 94%. He is afebrile and hemodynamically stable. In terms of antibiotic coverage, the patient remains on IV Zosyn. A repeat chest x-ray was done today and it showed essentially multifocal airspace disease in the right lung. No evidence of any pneumothorax. The patient also had an echocardiogram this morning that showed a preserved e jection fraction of 55 to 60%, mild pulm hypertension with an estimated PA pressure of around 40. No evidence of any pericardial effusion. The white cell count is 7.3 with hemoglobin 9.8 and a platelet count of 182. BUN is 25 with a creatinine of 1.1 and a sodium level of 141. He is communicating. Unable to take any of his oral medications because of his poor swallow. Another swallow evaluation is to be done today. Meanwhile, the patient remains on D5 water as the patient was not having episodes of hypoglycemia. He is not taking any form of sulfonylureas or insulin at this point in time. Objective - Vital Signs Vital signs: Vital Signs Temp 97.8 F 10/21/23 08:00 Pulse 73 10/21/23 08:00 Resp 14 10/21/23 08:45 BP 120/97 10/21/23 04:00 Pulse Ox 94 L 10/21/23 08:47 FiO2 Intake & Output 10/20/23 10/21/23 10/21/23 18:59 06:59 18:59 Intake Total 900 500 Output Total 700 350 Balance 200 150 Weight 105.5 kg Intake: IV 900 500 Dextrose 5% in Water 1, 800 400 000 ml @ 50 mls/hr IV . Q20H [facility] Rx#:[id number] Piperacillin-Tazobactam 3 100 100 .375 gm In Sodium Chloride 0.9% 100 ml @ 25 mls/hr IVPB Q8H [facility] Rx#: [id number] Output: Urine 700 350 Other: Voiding Method Indwelling Catheter Indwelling Catheter Indwelling Catheter - Exam General: Not in acute distress. Patient on 3L Oxygen via nasal cannula. Calm and comfortable and there are no signs of any significant respiratory distress HEENT: Unremarkable. The mucous membranes are dry Cardiovascular: Cardiac exam revealed the PMI to be normally situated and sized. The rhythm was regular and no extrasystoles were noted during several minutes of auscultation. The first and second heart sounds were normal and physiologic splitting of the second heart sound was noted. There were no murmurs, rubs, clicks, or gallops. Respiratory: Mild rhonchi. No wheezing or crackles. O2 sat at 91% on 3L Oxygen via nasal cannula. Abdominal: Soft, nondistended, nontender to palpation. Extremities: Examination of the extremities revealed easily palpable radial, femoral and pedal pulses. There was no cyanosis, clubbing or edema. Skin: No rash or lesions. Musculoskeletal: Decreased right lower extremity strength compare to the left. The patient has chronic rigidity and some resting tremors. Generalized weakness and debility and the patient is nonambulatory at this point in time. - Labs CBC & Chem 7: 10/21/23 05:23 10/21/23 05:23 Labs: Abnormal Lab Results - Last 24 Hours (Table) 10/21/23 10/21/23 Range/Units 05:23 05:23 RBC 3.60 L (4.30-5.90) m/uL Hgb 9.8 L (13.0-17.5) gm/dL Hct 31.1 L (39.0-53.0) % RDW 17.1 H (11.5-15.5) % Chloride 115 H (98-107) mmol/L BUN 25 H (9-20) mg/dL Assessment and Plan Plan: Acute hypoxemic respiratory failure, secondary to right-sided pneumonia. The patient has multifocal airspace disease involving the right lung. The patient is currently on IV Zosyn. Suspect aspiration based on his neurologic impairment secondary to advanced Parkinson's disease. Poor swallow mechanism. Failed swallow evaluation in the past. Acute hypotension, possibly related to underlying sepsis. Hemodynamically stable and the patient is currently off pressors History of Parkinson's disease. Significant neuromuscular weakness, rigidity, tremors and cognitive impairment Possible new neurologic findings, including right facial droop, and right upper extremity weakness. History of gastroesophageal reflux disease. History of GI bleed. History of erosive esophagitis. History of hypertension. Hypoglycemia the patient is currently on D5 water. The patient has been having episodes of hypoglycemia which is a reflection of his underlying malnourished state and possibly poor hepatic glycogen stores Plan: The patient is on 3L oxygen via nasal cannula. His O2 saturation is 91%. He is getting D5W at 50 cc an hour. The patient is a DO NOT RESUSCITATE patient. Monitor the blood sugars The patient is considered to be malnourished as the patient is having episodes of hypoglycemia. This is probably a reflection of the poor glycogen store. The patient was need at least an NG tube for feeding purposes. Another swallow evaluation is to be done. The patient is currently on Zosyn for pneumonia Neurology saw patient yesterday and noted the patient to have some left facial droop, which is likely chronic in nature. Brain CT and CTA of head and neck performed yesterday which showed normal findings. We have been in touch with the family about CODE STATUS, and additional orders, and, we will wait for their input. We will continue to follow.
[2023-10-21 15:59] LABS: Glucose,Whole Blood 106 mg/dL (70-110)
[2023-10-21 19:06] LABS: Glucose,Whole Blood 123 mg/dL (70-110)
[2023-10-21 23:41] LABS: Glucose,Whole Blood 94 mg/dL (70-110)
--- NOTE | 2023-10-21 23:53 | P.PN ---
Subjective Progress Note Date: 10/21/23 HISTORY OF PRESENT ILLNESS: 78-year-old patient of mine from [facility] seen for the last year he moved from up [facility] with past medical history of parkinsonism, GI bleed, chronic anemia, hypertension, BPH, GERD, chronic kidney disease, chronic psoriasis, debility not been able to ambulate and walk who is currently using wheelchair and probably walker most of the time. He become hypotensive with mild mental status change low-grade temperature chills ended up coming to the hospital found to have hypoxia with low pulse ox blood pressure was quite bit low he was placed urgently on 3.15 mcg of norepinephrine. Originally was diagnosed with acute hypoxic respiratory failure with right-sided pneumonia with acute hypotension from sepsis the following morning found to have slight right- sided weakness consistent with a stroke with facial droop and right-sided weakness. Has been treated for it since. Patient also CT of the brain did not show any intracranial hemorrhage chest x-ray showed right-sided infiltrate continue to have mildly elevated white blood cell kidney function stabilized to its baseline patient tested negative for influenza RSV and COVID-19. He is currently remain in the ICU responding decent still have right-sided facial droop and weakness. Originally he developed hematemesis was seen general surgery for backup has been doing much better since no further drop in hemoglobin and no active acute GI bleed currently.Last hemoglobin at 9.8 with white blood cell is much better. Blood sugar has been ranging in the low 100. REVIEW OF SYSTEMS: CONSTITUTIONAL: Elderly mildly overweight laying in bed still have oxygen on in mild respiratory distress. EYES: No icterus sclerae, no conjunctivitis. EARS, NOSE, MOUTH, THROAT, and FACE: No sore throat, lymphadenopathy, carotid bruits or deformity. RESPIRATORY: Has mild shortness of breath mild cough no wheezes. CARDIOVASCULAR: No CP, Palpitation, PND, Orthopnea, or angina. GASTROINTESTINAL: No Abd pain, Nausea or vomiting, no Diarrhea or constipation, No GI Bleed, no distention or masses. GENITOURINARY: Negative for Hematuria or UTI, no kidney stones. INTEGUMENT/BREAST: Negative for any muscular injury with mild osteoarthritis.. HEMATOLOGIC/LYMPHATIC: Negative for bleed or purpura. MUSCULOSKELTAL: Negative for Myalgia or arthralgia. NEURLOGICAL: No LOC, Sz or syncope, blurred vision dizziness or abnormality.. Positive abnormal memory with parkinsonism. BEHAVIORAL/PSYCH: Mild dementia. ENDOCRINE: Negative. PHYSICAL EXAMINATION: General Appearance: Alert, cooperative, mild distress and slight confusion. Neck HEENT: Supple, no lymphadenopathy, no thyroid enlargement, no carotid bruits. Lungs: Decreased breath sound bilaterally especially the right side positive fine rhonchi with crackles spasmodic slight wheezes. Chest Wall: Decreased expansion with deep inspiration no tenderness and no d eformity was found on exam, no costochondral pain or discomfort. Heart: Regular rate and rhythm, S1, S2 normal, no murmur, rub or gallop. Back: Symmetric, no curvature, ROM normal, no CVA tenderness. Abdomen: Soft, non-tender, bowel sounds active all four quadrants, no masses, no organomegaly. Extremities: Extremities normal, atraumatic, no cyanosis or edema. Pulses: 2+ and symmetric. Skin: Skin color, texture, tugor normal, no rashes or lesions. Neurologic: Alert oriented x3 cranial nerves II through XII intact, no motor deficit, no abnormal balance or gait. ASSESSMENT AND PLAN: _Acute hypoxic respiratory failure secondary to right-sided pneumonia: Continue oxygen does not require any mechanical ventilation or BiPAP currently doing updraft along with IV antibiotic with Zosyn and azithromycin. _Right-sided pneumonia along with right-sided pleural effusion: Continue aggressive antibiotics culture has been negative so far remain on a single antibiotic with Zosyn no need for right-sided thoracentesis at this point. _Right-sided weakness with most likely stroke no further worsening symptoms at this point patient more stable still seen neurology testing are up-to-date. _Acute kidney injury with creatinine stabilized currently at 1.13 GFR still slightly below continue gentle hydration watch symptoms carefully. _Acute metabolic encephalopathy most likely secondary to acute right-sided pneumonia along with hypoxia continue to watch patient mental status carefully. _Parkinson disease with worsening symptoms related to, remain on carbidopa levodopa continue medication. _Acute hematemesis with acute GI bleed, continue proton pump inhibitor, general surgery backup no need for any further intervention at this point. _BPH: Remain on Proscar 5 mg a day. _Severe GERD continue Protonix. CODE STATUS: DO NOT RESUSCITATE. Discussion: Patient still in the ICU hopefully with current improvement ongoing expect discharge hopefully in the next 48 hours. Objective - Vital Signs Vital signs: Vital Signs Temp 98.1 F 10/21/23 00:00 Pulse 77 10/21/23 00:00 Resp 16 10/21/23 00:00 BP 121/78 10/21/23 00:00 Pulse Ox 94 L 10/21/23 00:00 FiO2 Intake & Output 10/20/23 10/20/23 10/21/23 06:59 18:59 06:59 Intake Total 400 900 500 Output Total 350 700 350 Balance 50 200 150 Weight 105.6 kg 105.5 kg Intake: IV 400 900 500 Dextrose 5% in Water 1, 400 800 400 000 ml @ 50 mls/hr IV . Q20H [facility] Rx#:[id number] Piperacillin-Tazobactam 3 100 100 .375 gm In Sodium Chloride 0.9% 100 ml @ 25 mls/hr IVPB Q8H [facility] Rx#: [id number] Output: Urine 350 700 350 Other: Voiding Method Indwelling Catheter Indwelling Catheter Indwelling Catheter - Labs CBC & Chem 7: 10/21/23 05:23 10/21/23 05:23 Labs: Abnormal Lab Results - Last 24 Hours (Table) 10/21/23 Range/Units 05:23 RBC 3.60 L (4.30-5.90) m/uL Hgb 9.8 L (13.0-17.5) gm/dL Hct 31.1 L (39.0-53.0) % RDW 17.1 H (11.5-15.5) %
[2023-10-22 05:59] LABS: Glucose,Whole Blood 112 mg/dL (70-110)
[2023-10-22 11:54] LABS: Glucose,Whole Blood 111 mg/dL (70-110)
--- NOTE | 2023-10-22 12:32 | P.PN ---
Subjective Progress Note Date: 10/21/23 Patient was seen for follow-up. Patient is much more alert and awake. Spoke to the patient's nurse. Patient apparently has passed swallow, and is able to take pured and honey thick liquid. Patient offers no complaints. Denies headache. States he is doing "okay". He feels generalized weak. Per nurse, he is able to feed himself. Patient has not been started yet on Sinemet. Objective - Vital Signs Vital signs: Vital Signs Temp 97.4 F L 10/22/23 08:00 Pulse 64 10/22/23 08:00 Resp 16 10/22/23 08:00 BP 164/106 10/22/23 08:00 Pulse Ox 93 L 10/22/23 08:00 FiO2 Intake & Output 10/21/23 10/22/23 10/22/23 18:59 06:59 18:59 Intake Total 800 500 400 Output Total 550 400 175 Balance 250 100 225 Weight 105.7 kg Intake: IV 800 500 400 Dextrose 5% in Water 1, 800 400 400 000 ml @ 50 mls/hr IV . Q20H [facility] Rx#:[id number] Piperacillin-Tazobactam 3 100 .375 gm In Sodium Chloride 0.9% 100 ml @ 25 mls/hr IVPB Q8H [facility] Rx#: [id number] Output: Urine 550 400 175 Other: Voiding Method Indwelling Catheter Indwelling Catheter Indwelling Catheter # Bowel Movements 1 1 - Exam Examination is essentially unchanged. Continues to have left facial droop otherwise unremarkable. Patient does have significantly increased tone and rigidity, getting worse. Patient is not receiving his Sinemet. Patient's mentation, and speech is much improved. He is much more alert and awake. - Labs CBC & Chem 7: 10/21/23 05:23 10/21/23 05:23 Labs: Abnormal Lab Results - Last 24 Hours (Table) 10/21/23 10/22/23 10/22/23 Range/Units 19:05 05:58 11:53 POC Glucose (mg/dL) 123 H 112 H 111 H (70-110) mg/dL Assessment and Plan Assessment: * Possible stroke/TIA manifesting with right-sided weakness, which now seems to have resolved. Current NIH stroke scale is 1, just residual left facial droop, which is likely chronic in nature. Otherwise examination is nonfocal. Uncertain if these transient focal symptoms were related to prior hypotension. * Hypotension, possibly due to sepsis, now resolved * Hematemesis, now resolved * Parkinson's disease versus drug-induced parkinsonism from being on risperidone 0.25 mg twice daily. Patient is wheelchair-bound. * Acute right sided pneumonia * Dementia * History of hypertension * History of GERD/erosive esophagitis * Chronic renal disease, mild * Anemia Plan: * Patient has not received his Sinemet for last few days. Therefore his Parkinson's is getting worse. Patient has passed swallow. Patient to resume his Sinemet. * CTA of head and neck, which revealed no flow-limiting stenosis bilateral carotid bifurcations. Normal paimiut of [place]. * 2D echo revealed normal left ventricular size and systolic function. Mild mitral and tricuspid regurgitation. Mildly increased left atrial diameter. * Fasting a.m. lipid panel cholesterol 122, LDL 51, HDL 52 and triglycerides 93. Lipids are well-controlled. * Hemoglobin A1c 5.9 * We will start aspirin 81 mg daily, as GI has cleared. Patient has passed swallow. * Neurochecks every 4 hours. * Patient on Zosyn for pneumonia. * Patient carries a diagnosis of Parkinson's disease. He is also on Risperdal 0.25 mg twice daily, which can produce drug-induced parkinsonism. Discontinue Risperdal. * Patient is n.p.o. at this time, until cleared by speech therapy. Also PT/OT. * Patient also on midodrine 5 mg twice daily.
--- NOTE | 2023-10-22 13:57 | FL ---
Exam Date: 10/22/2023 1:23 PM. Modified barium swallow for dysphagia. Consistencies administered: Various consistency of barium. Fluoro time: 2.42 minutes No images were sent to PACS. Please see speech pathology report. DAP: 247.05 mGym2 Gycm2
[2023-10-22] MEDS: FUROSEMIDE 20 MG TAB PO SCH (14:58)
--- NOTE | 2023-10-22 16:51 | P.PN ---
Progress Note - Text Progress Note Date: 10/22/23 Pt Seen and Examined. NAEO. No further episodes of hematemesis VSS General-NAD Abdomen-soft, NTND 78-year-old male with concern for hematemesis -no signs of bleeding -hgb stable -ok for diet Isaac Vaughn DO [facility] [phone]
[2023-10-22 16:54] LABS: Glucose,Whole Blood 93 mg/dL (70-110)
--- NOTE | 2023-10-22 20:11 | P.PN ---
Subjective Progress Note Date: 10/22/23 78-year-old male seen in the emergency department, on October 17. [facility], with mental status changes. He was brought in by EMS. The patient has a history of Parkinson's disease, GI bleed, gastroesophageal reflux disease, hypertension, chronic kidney disease. The pa laury was seen the day before in the emergency department, for possible hematemesis, labs are stable, his blood pressure was normal, and he was discharged. At [facility], he apparently became hypotensive, with mental status changes, and low saturations, and he was brought back to the emergency departm ent. I was called, from the hospital service, yesterday, about this patient. He was on the floor, as a DNR patient, was apparently hypotensive despite fluid resuscitation, and the patient was transferred to the intensive care unit, for possible norepinephrine administration. Initially, according to the charge nurse in the ICU, the patient did not require norepinephrine. At about midnight, the patient's blood pressure dropped, and he was placed on 3.15 mcg/min of norepinephrine, from midnight to 6:30 AM. This morning, the nurse who has the patient, noted that the patient had a right facial droop, and right upper extremity weakness. The right lower extremity was contracted chronically. He does have a chronic tremor because of his Parkinson's. It is not clear whether or not these changes are new or old, so therefore a code stroke was called. Chest x-ray on admission shows a possible right lower lobe pneumonia. Brain CT this morning, shows no acute intracranial process. There is prominent atrophy, with a chronic appearing patchy white matter ischemic changes. Angiography CT showed no flow-limiting stenotic areas. White count 8.9, hemoglobin 10.3, hematocrit 33.5, and platelet count 211,000. Sodium 144, potassium 4.2, chlorides 119, CO2 21, BUN 45, creatinine 1.03. Calcium is 7.7. He tested negative for influenza, RSV, and coronavirus." Patient was seen and examined in the ICU on October 19. Patient was noted to have some right facial droop and right upper extremity weakness yesterday however head CT showed no acute intracranial processes. Patient was alert today, not in acute distress. He is not tolerating oral intake. His O2 sat is 91% at 3L via Nasal cannula. He is receiving D5W at 50 mls/hr. No updated labs from today. Labs on 10/18 showed White count 8.9, hemoglobin 10.3, hematocrit 33.5, platelet count 211,000, sodium 144, potassium 4.2, chlorides 119, CO2 21, BUN 45 , creatinine 1.03, Calcium 7.7. Chest X ray performed on 10/19 showed no acute findings. Neurology saw the patient yesterday and noted the patient to have some residual left facial droop, which is likely chronic in nature. On 10/21/2023, the patient is being seen for a follow-up. The patient has advanced Parkinson disease with cognitive impairments. The patient is currently being treated for pneumonia. He is unable to swallow and he has declined PEG tube insertion for feeding and nutritional support. His swallow mechanism is poor. He does have some adequate cough. Unable to bring up much of sputum. No significant respiratory distress on today's evaluation the patient is currently onOxygen at 3 L/min nasal cannula with pulse ox of 94%. He is afebrile and hemodynamically stable. In terms of antibiotic coverage, the patient remains on IV Zosyn. A repeat chest x-ray was done today and it showed essentially multifocal airspace disease in the right lung. No evidence of any pneumothorax. The patient also had an echocardiogram this morning that showed a preserved e jection fraction of 55 to 60%, mild pulm hypertension with an estimated PA pressure of around 40. No evidence of any pericardial effusion. The white cell count is 7.3 with hemoglobin 9.8 and a platelet count of 182. BUN is 25 with a creatinine of 1.1 and a sodium level of 141. He is communicating. Unable to take any of his oral medications because of his poor swallow. Another swallow evaluation is to be done today. Meanwhile, the patient remains on D5 water as the patient was not having episodes of hypoglycemia. He is not taking any form of sulfonylureas or insulin at this point in time. On today's evaluation on 10/22/2023 patient is being seen for a follow-up. The patient had a another swallow evaluation the patient was cleared for a pured diet. His respiratory status is stable. No major respite difficulties for now. Pulse ox 93% with oxygen by nasal cannula. No new labs are available from today. Labs from yesterday was noted. The patient remains on broad-spectrum antibiotics covering for aspiration pneumonia. The patient is currently on IV Rocephin. The echocardiogram was performed yesterday the patient was found to have a preserved LV function with an ejection fraction of 55 to 60%. Mild elevation of the pulmonary artery pressures estimated to be at 40. Neur ologically, the patient is significant cognitive impairment and dementia and significant psychomotor slowing secondary to Parkinson disease. No reported nausea vomiting or emesis. No pressors. Hemodynamically stable. Objective - Vital Signs Vital signs: Vital Signs Temp 98.8 F 10/22/23 04:00 Pulse 70 10/22/23 04:00 Resp 17 10/22/23 04:00 BP 136/80 10/22/23 04:00 Pulse Ox 93 L 10/22/23 04:00 FiO2 Intake & Output 10/21/23 10/22/23 10/22/23 18:59 06:59 18:59 Intake Total 800 500 Output Total 550 400 Balance 250 100 Weight 105.7 kg Intake: IV 800 500 Dextrose 5% in Water 1, 800 400 000 ml @ 50 mls/hr IV . Q20H [facility] Rx#:[id number] Piperacillin-Tazobactam 3 100 .375 gm In Sodium Chloride 0.9% 100 ml @ 25 mls/hr IVPB Q8H [facility] Rx#: [id number] Output: Urine 550 400 Other: Voiding Method Indwelling Catheter Indwelling Catheter # Bowel Movements 1 1 - Exam General: Not in acute distress. Patient on 3L Oxygen via nasal cannula. Calm and comfortable and there are no signs of any significant respiratory distress HEENT: Unremarkable. The mucous membranes are dry Cardiovascular: Cardiac exam revealed the PMI to be normally situated and sized. The rhythm was regular and no extrasystoles were noted during several minutes of auscultation. The first and second heart sounds were normal and physiologic splitting of the second heart sound was noted. There were no murmurs, rubs, clicks, or gallops. Respiratory: Mild rhonchi. No wheezing or crackles. O2 sat at 91% on 3L Oxygen via nasal cannula. Abdominal: Soft, nondistended, nontender to palpation. Extremities: Examination of the extremities revealed easily palpable radial, femoral and pedal pulses. There was no cyanosis, clubbing or edema. Skin: No rash or lesions. Musculoskeletal: Decreased right lower extremity strength compare to the left. The patient has chronic rigidity and some resting tremors. Generalized weakness and debility and the patient is nonambulatory at this point in time. - Labs CBC & Chem 7: 10/21/23 05:23 10/21/23 05:23 Labs: Abnormal Lab Results - Last 24 Hours (Table) 10/21/23 10/22/23 Range/Units 19:05 05:58 POC Glucose (mg/dL) 123 H 112 H (70-110) mg/dL Assessment and Plan Plan: Acute hypoxemic respiratory failure, secondary to right-sided pneumonia. The patient has multifocal airspace disease involving the right lung. The patient is currently on IV Zosyn. Suspect aspiration based on his neurologic impairment secondary to advanced Parkinson's disease. Poor swallow mechanism. Repeat swallow evaluation was done and the patient is currently being offered pured diet. Acute hypotension, possibly related to underlying sepsis. Hemodynamically stable and the patient is currently off pressors, recovered History of Parkinson's disease. Significant neuromuscular weakness, rigidity, tremors and cognitive impairment Possible new neurologic findings, including right facial droop, and right upper extremity weakness. History of gastroesophageal reflux disease. History of GI bleed. History of erosive esophagitis. History of hypertension. Hypoglycemia the patient is currently on D5 water. The patient has been having episodes of hypoglycemia which is a reflection of his underlying malnourished st ate and possibly poor hepatic glycogen stores Plan: The patient is on 3L oxygen via nasal cannula. The patient is a DO NOT RESUSCITATE patient. Aspiration precautions. No episodes of hypoglycemia the patient will be kept on D5 water at rate of 50 cc an hour The patient is considered to be malnourished as the patient is having episodes of hypoglycemia. This is probably a reflection of the poor glycogen store. The patient was need at least an NG tube for feeding purposes. Another swallow evaluation is to be done. The patient is currently on Zosyn for pneumonia, this will be continued Neurology saw patient yesterday and noted the patient to have some left facial droop, which is likely chronic in nature. Brain CT and CTA of head and neck performed yesterday which showed normal findings. The patient can be transferred out of the intensive care unit for now. We will continue to follow.
[2023-10-22] MEDS: FINASTERIDE 5 MG TAB PO SCH (21:52)
[2023-10-23 00:13] LABS: Glucose,Whole Blood 95 mg/dL (70-110)
[2023-10-23 05:58] LABS: Glucose,Whole Blood 85 mg/dL (70-110)
--- NOTE | 2023-10-23 06:42 | P.PN ---
Subjective Progress Note Date: 10/22/23 HISTORY OF PRESENT ILLNESS: 78-year-old patient of mine from [facility] open seen for the last year he moved from up [facility] with past medical history of parkinsonism, GI bleed, chronic anemia, hypertension, BPH, GERD, chronic kidney disease, chronic psoriasis, debility not been able to ambulate and walk who is currently using wheelchair and probably walker most of the time. He become hypotensive with mild mental status change low-grade temperature chills ended up coming to the hospital found to have hypoxia with low pulse ox blood pressure was quite bit low he was placed urgently on 3.15 mcg of norepinephrine. Originally was diagnosed with acute hypoxic respiratory failure with right-sided pneumonia with acute hypotension from sepsis the following morning found to have slight right- sided weakness consistent with a stroke with facial droop and right-sided weakness. Has been treated for it since. Patient also CT of the brain did not show any intracranial hemorrhage chest x-ray showed right-sided infiltrate continue to have mildly elevated white blood cell kidney function stabilized to its baseline patient tested negative for influenza RSV and COVID-19. He is currently remain in the ICU responding decent still have right-sided facial droop and weakness. Originally he developed hematemesis was seen general surgery for backup has been doing much better since no further drop in hemoglobin and no active acute GI bleed currently.Last hemoglobin at 9.8 with white blood cell is much better. Blood sugar has been ranging in the low 100. 10/22/2023: Patient remain in the ICU as an overflow, echocardiogram was performed yesterday which showed ejection fraction of 50-55 percentile with mild mitral regurgitation and moderate pulmonary hypertension with PA pressure of 40 mmHg. He is continue to be slightly bit confused, continue to have significant shortness of breath and cough but symptoms are slightly better his pneumonia has been treated well and prepare hopefully for going back to [facility] if she is stable hemodynamically plan probably for discharge in the next 24 to 48 hours. REVIEW OF SYSTEMS: CONSTITUTIONAL: Elderly mildly overweight laying in bed still have oxygen on in mild respiratory distress. EYES: No icterus sclerae, no conjunctivitis. EARS, NOSE, MOUTH, THROAT, and FACE: No sore throat, lymphadenopathy, carotid bruits or deformity. RESPIRATORY: Has mild shortness of breath mild cough no wheezes. CARDIOVASCULAR: No CP, Palpitation, PND, Orthopnea, or angina. GASTROINTESTINAL: No Abd pain, Nausea or vomiting, no Diarrhea or constipation, No GI Bleed, no distention or masses. GENITOURINARY: Negative for Hematuria or UTI, no kidney stones. INTEGUMENT/BREAST: Negative for any muscular injury with mild osteoarthritis.. HEMATOLOGIC/LYMPHATIC: Negative for bleed or purpura. MUSCULOSKELTAL: Negative for Myalgia or arthralgia. NEURLOGICAL: No LOC, Sz or syncope, blurred vision dizziness or abnormality.. Positive abnormal memory with parkinsonism. BEHAVIORAL/PSYCH: Mild dementia. ENDOCRINE: Negative. PHYSICAL EXAMINATION: General Appearance: Alert, cooperative, mild distress and slight confusion. Neck HEENT: Supple, no lymphadenopathy, no thyroid enlargement, no carotid bruits. Lungs: Decreased breath sound bilaterally especially the right side positive fine rhonchi with crackles spasmodic slight wheezes. Chest Wall: Decreased expansion with deep inspiration no tenderness and no deformity was found on exam, no costochondral pain or discomfort. Heart: Regular rate and rhythm, S1, S2 normal, no murmur, rub or gallop. Back: Symmetric, no curvature, ROM normal, no CVA tenderness. Abdomen: Soft, non-tender, bowel sounds active all four quadrants, no masses, no organomegaly. Extremities: Extremities normal, atraumatic, no cyanosis or edema. Pulses: 2+ and symmetric. Skin: Skin color, texture, tugor normal, no rashes or lesions. Neurologic: Alert oriented x3 cranial nerves II through XII intact, no motor deficit, no abnormal balance or gait. ASSESSMENT AND PLAN: _Acute hypoxic respiratory failure secondary to right-sided pneumonia: Continue oxygen does not require any mechanical ventilation or BiPAP currently doing updraft along with IV antibiotic with Zosyn. _Right-sided pneumonia along with right-sided pleural effusion: Continue aggressive antibiotics culture has been negative so far remain on a single antibiotic with Zosyn no need for right-sided thoracentesis at this point. _Right-sided weakness with most likely stroke no further worsening symptoms at this point patient more stable still seen neurology testing are up-to-date. _Pulmonary hypertension findings on his echocardiogram will continue medical management at this point continue diuretics along with calcium channel parish may be beta-parish. _Valvular heart disease with mild mitral regurgitation still on medical roverto gement no intervention required. _Acute kidney injury with creatinine stabilized currently at 1.13 GFR still slightly below continue gentle hydration watch symptoms carefully. _Acute metabolic encephalopathy most likely secondary to acute right-sided pneumonia along with hypoxia continue to watch patient mental status carefully. _Parkinson disease with worsening symptoms related to, remain on carbidopa levodopa continue medication. _Acute hematemesis with acute GI bleed, continue proton pump inhibitor, general surgery backup no need for any further intervention at this point. _BPH: Remain on Proscar 5 mg a day. _Severe GERD continue Protonix. _Severe debility: Request physical therapy increase activity and mobility. CODE STATUS: DO NOT RESUSCITATE. Discussion: Patient be transferred out of the ICU today again we will continue to try to attempt physical therapy the patient hopefully will be ready to return to [facility] in the next 24 hours. Objective - Vital Signs Vital signs: Vital Signs Temp 98.8 F 10/22/23 04:00 Pulse 70 10/22/23 04:00 Resp 17 10/22/23 04:00 BP 136/80 10/22/23 04:00 Pulse Ox 93 L 10/22/23 04:00 FiO2 Intake & Output 10/21/23 10/21/23 10/22/23 06:59 18:59 06:59 Intake Total 500 800 500 Output Total 350 550 400 Balance 150 250 100 Weight 105.5 kg 105.7 kg Intake: IV 500 800 500 Dextrose 5% in Water 1, 400 800 400 000 ml @ 50 mls/hr IV . Q20H [facility] Rx#:[id number] Piperacillin-Tazobactam 3 100 100 .375 gm In Sodium Chloride 0.9% 100 ml @ 25 mls/hr IVPB Q8H [facility] Rx#: [id number] Output: Urine 350 550 400 Other: Voiding Method Indwelling Catheter Indwelling Catheter Indwelling Catheter # Bowel Movements 1 1 - Labs CBC & Chem 7: 10/21/23 05:23 10/21/23 05:23 Labs: Abnormal Lab Results - Last 24 Hours (Table) 10/21/23 10/22/23 Range/Units 19:05 05:58 POC Glucose (mg/dL) 123 H 112 H (70-110) mg/dL
[2023-10-23] MEDS: lisinopriL 5 MG TAB PO SCH (08:34)
[2023-10-23] MEDS: PANTOPRAZOLE 40 MG TABLET PO SCH (08:35)
--- NOTE | 2023-10-23 09:04 | P.PN ---
Subjective Progress Note Date: 10/22/23 Patient was seen for follow-up. Patient is fully alert and awake. Spoke to the patient's nurse. Patient is having some hallucinations, as he believes that the ceiling is sliding and they are graffiti on the ceiling. Patient apparently has passed swallow, and is able to take pured and honey thick liquid. Patient offers no complaints. Denies headache. States he is doing "okay". He feels generalized weak. Per nurse, he is able to feed himself. Patient now has been started on Sinemet. Patient does have history of dementia. Objective - Vital Signs Vital signs: Vital Signs Temp 97.6 F 10/22/23 12:00 Pulse 50 L 10/22/23 12:00 Resp 16 10/22/23 12:00 BP 127/79 10/22/23 12:00 Pulse Ox 93 L 10/22/23 12:00 FiO2 Intake & Output 10/21/23 10/22/23 10/22/23 18:59 06:59 18:59 Intake Total 800 500 400 Output Total 550 400 175 Balance 250 100 225 Weight 105.7 kg Intake: IV 800 500 400 Dextrose 5% in Water 1, 800 400 400 000 ml @ 50 mls/hr IV . Q20H [facility] Rx#:[id number] Piperacillin-Tazobactam 3 100 .375 gm In Sodium Chloride 0.9% 100 ml @ 25 mls/hr IVPB Q8H [facility] Rx#: [id number] Output: Urine 550 400 175 Other: Voiding Method Indwelling Catheter Indwelling Catheter Indwelling Catheter # Bowel Movements 1 1 - Exam On examination patient is alert and awake in no distress. Patient states is the month of October and the year is 1969. He could not tell what building it is, thinks is a retail place or a bank. Speech is clear with no obvious aphasia or dysarthria. He has left facial droop. Visual suggs are full. No neglect. Extraocular muscles are intact. On muscle strength testing, the biceps, triceps and sales representative livestock are normal. In the lower limbs, his ankles are normal. Hip flexion is quite weak about 3-3+ bilaterally. Tone is mild to moderately increased bilaterally, better than yesterday. No tremors at rest noted. Patient is bradykinetic. - Labs CBC & Chem 7: 10/21/23 05:23 10/21/23 05:23 Labs: Abnormal Lab Results - Last 24 Hours (Table) 10/21/23 10/22/23 10/22/23 Range/Units 19:05 05:58 11:53 POC Glucose (mg/dL) 123 H 112 H 111 H (70-110) mg/dL Assessment and Plan Assessment: * Possible stroke/TIA manifesting with right-sided weakness, which now seems to have resolved. Current NIH stroke scale is 1, just residual left facial droop, which is likely chronic in nature. Otherwise examination is nonfocal. Uncertain if these transient focal symptoms were related to prior hypotension. * Hypotension, possibly due to sepsis, now resolved * Hematemesis, now resolved * Parkinson's disease versus drug-induced parkinsonism from being on risperidone 0.25 mg twice daily. Patient is wheelchair-bound. * Acute right sided pneumonia * Dementia * History of hypertension * History of GERD/erosive esophagitis * Chronic renal disease, mild * Anemia Plan: * Patient has started receiving Sinemet. Patient has passed swallow. Continue Sinemet. * CTA of head and neck, which revealed no flow-limiting stenosis bilateral carotid bifurcations. Normal [place] of [place]. * 2D echo revealed normal left ventricular size and systolic function. Mild mitral and tricuspid regurgitation. Mildly increased left atrial diameter. * Fasting a.m. lipid panel cholesterol 122, LDL 51, HDL 52 and triglycerides 93. Lipids are well-controlled. * Hemoglobin A1c 5.9 * We will start aspirin 81 mg daily, as GI has cleared. Patient has passed swallow. * Neurochecks every 4 hours. * Patient on Zosyn for pneumonia. * Patient carries a diagnosis of Parkinson's disease. He is also on Risperdal 0.25 mg twice daily, which can produce drug-induced parkinsonism. Discontinue Risperdal. * PT/OT. * Patient also on midodrine 5 mg twice daily. * Neurologically clear for transfer to rehab facility, when medically cleared.
[2023-10-23 11:34] LABS: Glucose,Whole Blood 103 mg/dL (70-110)
--- NOTE | 2023-10-23 11:48 | P.PN ---
Progress Note - Text Progress Note Date: 10/23/23 Pt Seen and Examined. NAEO. No further episodes of hematemesis VSS General-NAD Abdomen-soft, NTND 78-year-old male with concern for hematemesis -no signs of bleeding -continue to monitor Hgb -ok for diet Isaac Vaughn DO [facility] [phone]
[2023-10-23 13:45] VITALS: BMI 32.5
--- NOTE | 2023-10-23 15:44 | P.PN ---
Subjective Progress Note Date: 10/23/23 78-year-old male seen in the emergency department, on October 17. He apparently came in from the group home, with mental status changes. He was brought in by EMS. The patient has a history of Parkinson's disease, GI bleed, gastroesophageal reflux disease, hypertension, chronic kidney disease. The pa laury was seen the day before in the emergency department, for possible hematemesis, labs are stable, his blood pressure was normal, and he was discharged. At [facility], he apparently became hypotensive, with mental status changes, and low saturations, and he was brought back to the emergency departm ent. I was called, from the hospital service, yesterday, about this patient. He was on the floor, as a DNR patient, was apparently hypotensive despite fluid resuscitation, and the patient was transferred to the intensive care unit, for possible norepinephrine administration. Initially, according to the charge nurse in the ICU, the patient did not require norepinephrine. At about midnight, the patient's blood pressure dropped, and he was placed on 3.15 mcg/min of norepinephrine, from midnight to 6:30 AM. This morning, the nurse who has the patient, noted that the patient had a right facial droop, and right upper extremity weakness. The right lower extremity was contracted chronically. He does have a chronic tremor because of his Parkinson's. It is not clear whether or not these changes are new or old, so therefore a code stroke was called. Chest x-ray on admission shows a possible right lower lobe pneumonia. Brain CT this morning, shows no acute intracranial process. There is prominent atrophy, with a chronic appearing patchy white matter ischemic changes. Angiography CT showed no flow-limiting stenotic areas. White count 8.9, hemoglobin 10.3, hematocrit 33.5, and platelet count 211,000. Sodium 144, potassium 4.2, chlorides 119, CO2 21, BUN 45, creatinine 1.03. Calcium is 7.7. He tested negative for influenza, RSV, and coronavirus." Patient was seen and examined in the ICU on October 19. Patient was noted to have some right facial droop and right upper extremity weakness yesterday however head CT showed no acute intracranial processes. Patient was alert today, not in acute distress. He is not tolerating oral intake. His O2 sat is 91% at 3L via Nasal cannula. He is receiving D5W at 50 mls/hr. No updated labs from today. Labs on 10/18 showed White count 8.9, hemoglobin 10.3, hematocrit 33.5, platelet count 211,000, sodium 144, potassium 4.2, chlorides 119, CO2 21, BUN 45 , creatinine 1.03, Calcium 7.7. Chest X ray performed on 10/19 showed no acute findings. Neurology saw the patient yesterday and noted the patient to have some residual left facial droop, which is likely chronic in nature. On 10/21/2023, the patient is being seen for a follow-up. The patient has advanced Parkinson disease with cognitive impairments. The patient is currently being treated for pneumonia. He is unable to swallow and he has declined PEG tube insertion for feeding and nutritional support. His swallow mechanism is poor. He does have some adequate cough. Unable to bring up much of sputum. No significant respiratory distress on today's evaluation the patient is currently onOxygen at 3 L/min nasal cannula with pulse ox of 94%. He is afebrile and hemodynamically stable. In terms of antibiotic coverage, the patient remains on IV Zosyn. A repeat chest x-ray was done today and it showed essentially multifocal airspace disease in the right lung. No evidence of any pneumothorax. The patient also had an echocardiogram this morning that showed a preserved e jection fraction of 55 to 60%, mild pulm hypertension with an estimated PA pressure of around 40. No evidence of any pericardial effusion. The white cell count is 7.3 with hemoglobin 9.8 and a platelet count of 182. BUN is 25 with a creatinine of 1.1 and a sodium level of 141. He is communicating. Unable to take any of his oral medications because of his poor swallow. Another swallow evaluation is to be done today. Meanwhile, the patient remains on D5 water as the patient was not having episodes of hypoglycemia. He is not taking any form of sulfonylureas or insulin at this point in time. On today's evaluation on 10/22/2023 patient is being seen for a follow-up. The patient had a another swallow evaluation the patient was cleared for a pured diet. His respiratory status is stable. No major respite difficulties for now. Pulse ox 93% with oxygen by nasal cannula. No new labs are available from today. Labs from yesterday was noted. The patient remains on broad-spectrum antibiotics covering for aspiration pneumonia. The patient is currently on IV Rocephin. The echocardiogram was performed yesterday the patient was found to have a preserved LV function with an ejection fraction of 55 to 60%. Mild elevation of the pulmonary artery pressures estimated to be at 40. Neur ologically, the patient is significant cognitive impairment and dementia and significant psychomotor slowing secondary to Parkinson disease. No reported nausea vomiting or emesis. No pressors. Hemodynamically stable. On 10/23/2023, the patient is being seen for a follow-up. The patient is essenti ally stable. The patient was moved out of the intensive care unit yesterday. On today's evaluation, no interval worsening shortness of breath. He remains on 2 L of oxygen by nasal cannula. He is afebrile. No reported aspiration. Tolerating pured diet. Remains on D5 water at rate of 50. No hypoglycemias. Objective - Vital Signs Vital signs: Vital Signs Temp 98.1 F 10/23/23 07:26 Pulse 64 10/23/23 07:26 Resp 16 10/23/23 07:26 BP 155/89 10/23/23 07:26 Pulse Ox 90 L 10/23/23 07:26 FiO2 Intake & Output 10/22/23 10/23/23 10/23/23 18:59 06:59 18:59 Intake Total 400 Output Total 175 1900 Balance 225 -1900 Weight 103 kg Intake: IV 400 Dextrose 5% in Water 1, 400 000 ml @ 50 mls/hr IV . Q20H [facility] Rx#:[id number] Output: Urine 175 1900 Uretheral ([place]) 1900 Other: Voiding Method Indwelling Catheter Indwelling Catheter # Bowel Movements 1 1 - Exam General: Not in acute distress. Patient on 3L Oxygen via nasal cannula. Calm and comfortable and there are no signs of any significant respiratory distress HEENT: Unremarkable. The mucous membranes are dry Cardiovascular: Cardiac exam revealed the PMI to be normally situated and sized. The rhythm was regular and no extrasystoles were noted during several minutes of auscultation. The first and second heart sounds were normal and physiologic splitting of the second heart sound was noted. There were no murmurs, rubs, clicks, or gallops. Respiratory: Mild rhonchi. No wheezing or crackles. O2 sat at 91% on 3L Oxygen via nasal cannula. Abdominal: Soft, nondistended, nontender to palpation. Extremities: Examination of the extremities revealed easily palpable radial, femoral and pedal pulses. There was no cyanosis, clubbing or edema. Skin: No rash or lesions. Musculoskeletal: Decreased right lower extremity strength compare to the left. The patient has chronic rigidity and some resting tremors. Generalized weakness and debility and the patient is nonambulatory at this point in time. - Labs CBC & Chem 7: 10/21/23 05:23 10/21/23 05:23 Labs: Abnormal Lab Results - Last 24 Hours (Table) 10/22/23 Range/Units 11:53 POC Glucose (mg/dL) 111 H (70-110) mg/dL Assessment and Plan Plan: Acute hypoxemic respiratory failure, secondary to right-sided pneumonia. The patient has multifocal airspace disease involving the right lung. The patient is currently on IV Zosyn. Suspect aspiration based on his neurologic impairment secondary to advanced Parkinson's disease. Poor swallow mechanism. Repeat swallow evaluation was done and the patient is currently being offered pured diet. Acute hypotension, possibly related to underlying sepsis. Hemodynamically stable and the patient is currently off pressors, recovered History of Parkinson's disease. Significant neuromuscular weakness, rigidity, tremors and cognitive impairment Possible new neurologic findings, including right facial droop, and right upper extremity weakness. History of gastroesophageal reflux disease. History of GI bleed. History of erosive esophagitis. History of hypertension. Hypoglycemia the patient is currently on D5 water. The patient has been having episodes of hypoglycemia which is a reflection of his underlying malnourished state and possibly poor hepatic glycogen stores Plan: Overall respiratory status is stable and the patient is currently on 2 L of oxygen by nasal cannula The patient is a DO NOT RESUSCITATE patient. Aspiration precautions. No episodes of hypoglycemia the patient will be kept on D5 water at rate of 50 cc an hour The patient is considered to be malnourished as the patient is having episodes of hypoglycemia. This is probably a reflection of the poor glycogen store. The patient is currently on Zosyn for pneumonia Neurology saw patient yesterday and noted the patient to have some left facial droop, which is likely chronic in nature. Brain CT and CTA of head and neck performed yesterday which showed normal findings. The patient is currently on the medical floor. Monitor prognosis poor based on this significant neurologic impairment and Parkinson disease and dementia. We will continue to follow.
[2023-10-23 16:58] LABS: Glucose,Whole Blood 81 mg/dL (70-110)
[2023-10-24 00:08] LABS: Glucose,Whole Blood 91 mg/dL (70-110)
[2023-10-24 06:19] LABS: Glucose,Whole Blood 80 mg/dL (70-110)
--- NOTE | 2023-10-24 07:43 | P.PN ---
Subjective Progress Note Date: 10/23/23 Patient was seen for follow-up. Patient is fully alert and awake. Patient denies any headache or dizziness. Patient is getting his medications. Objective - Vital Signs Vital signs: Vital Signs Temp 97.5 F L 10/23/23 13:10 Pulse 68 10/23/23 13:10 Resp 16 10/23/23 13:10 BP 121/68 10/23/23 13:10 Pulse Ox 92 L 10/23/23 13:10 FiO2 Intake & Output 10/22/23 10/23/23 10/23/23 18:59 06:59 18:59 Intake Total 400 Output Total 175 1900 Balance 225 -1900 Weight 103 kg 103 kg Intake: IV 400 Dextrose 5% in Water 1, 400 000 ml @ 50 mls/hr IV . Q20H [facility] Rx#:[id number] Output: Urine 175 1900 Uretheral ([place]) 1900 Other: Voiding Method Indwelling Catheter Indwelling Catheter # Bowel Movements 1 1 - Exam On examination patient is alert and awake in no distress. Speech is slightly slurred with no obvious aphasia or dysarthria. He has left facial droop. Visual suggs are full. No neglect. Extraocular muscles are intact. On muscle strength testing, the biceps, triceps and vascular manager are normal. In the lower limbs, his ankles are normal. Hip flexion is about 5-4+ on the right, 5 on the left. Patient was able to better place effort with examination today as compared to yesterday. Ankles are normal. Tone is mild to moderately increased bilaterally. No tremors at rest noted. Patient is bradykinetic. - Labs CBC & Chem 7: 10/21/23 05:23 10/21/23 05:23 Assessment and Plan Assessment: * Possible stroke/TIA manifesting with right-sided weakness, which now seems to have resolved. Current NIH stroke scale is 1, just residual left facial droop, which is likely chronic in nature. Otherwise examination is nonfocal. Uncertain if these transient focal symptoms were related to prior hypotension. * Hypotension, possibly due to sepsis, now resolved * Hematemesis, now resolved * Parkinson's disease versus drug-induced parkinsonism from being on risperidone 0.25 mg twice daily. Patient is wheelchair-bound. * Acute right sided pneumonia * Dementia * History of hypertension * History of GERD/erosive esophagitis * Chronic renal disease, mild * Anemia Plan: * Patient has started receiving Sinemet. Patient has passed swallow. Continue Sinemet. * CTA of head and neck, which revealed no flow-limiting stenosis bilateral carotid bifurcations. Normal tribe of [place]. * 2D echo revealed normal left ventricular size and systolic function. Mild mitral and tricuspid regurgitation. Mildly increased left atrial diameter. * Fasting a.m. lipid panel cholesterol 122, LDL 51, HDL 52 and triglycerides 93. Lipids are well-controlled. * Hemoglobin A1c 5.9 * We will start aspirin 81 mg daily, as GI has cleared. Patient has passed swallow. * Neurochecks every 4 hours. * Patient on Zosyn for pneumonia. * Patient carries a diagnosis of Parkinson's disease. He is also on Risperdal 0.25 mg twice daily, which can produce drug-induced parkinsonism. Discontinue Risperdal. * PT/OT. * Patient also on midodrine 5 mg twice daily. * Neurologically clear for transfer to rehab facility, when medically cleared.
[2023-10-24 09:17] LABS: Basophils # (A) 0.03 X 10*3/uL (0.00-0.10); Basophils % (A) 0.4 %; Blood Urea Nitrogen 15.4 mg/dL (9.0-27.0); Carbon Dioxide 21.4 mmol/L (21.6-31.8); Chloride 112 mmol/L (96-109); Eosinophils # (A) 0.23 X 10*3/uL (0.04-0.35); Glucose 72 mg/dL (70-110); HGB 9.9 g/dL (13.0-17.0); Lymphocytes % (A) 10.5 %; MCH 27.4 pg (27.0-32.0); MCHC 31.9 g/dL (32.0-37.0); MCV 85.9 FL (80.0-97.0); Mean Platelet Volume 10.7 FL (9.5-12.2); Monocytes # (A) 0.65 X 10*3/uL (0.20-1.00); Monocytes % (A) 8.5 %; NRBC Per 100 WBC 0 X 10*3/uL (0.00-0.01); Neutrophils # (A) 5.84 X 10*3/uL (1.80-7.70); Neutrophils % (A) 76.8 %; Platelet Count 202 X 10*3/uL (140-440); Potassium 3.8 mmol/L (3.5-5.5); RBC 3.61 X 10*6/uL (4.40-5.60); RDW 17.2 % (11.5-14.5); Sodium 147 mmol/L (135-145); WBC 7.61 X 10*3/uL (4.50-10.00)
[2023-10-24 09:18] LABS: Calcium 8.1 mg/dL (8.7-10.3)
[2023-10-24 11:30] LABS: Glucose,Whole Blood 73 mg/dL (70-110)
--- NOTE | 2023-10-24 12:48 | P.PN ---
Subjective Progress Note Date: 10/23/23 HISTORY OF PRESENT ILLNESS: 78-year-old patient of mine from [facility] open seen for the last year he moved from up [facility] with past medical history of parkinsonism, GI bleed, chronic anemia, hypertension, BPH, GERD, chronic kidney disease, chronic psoriasis, debility not been able to ambulate and walk who is currently using wheelchair and probably walker most of the time. He become hypotensive with mild mental status change low-grade temperature chills ended up coming to the hospital found to have hypoxia with low pulse ox blood pressure was quite bit low he was placed urgently on 3.15 mcg of norepinephrine. Originally was diagnosed with acute hypoxic respiratory failure with right-sided pneumonia with acute hypotension from sepsis the following morning found to have slight right- sided weakness consistent with a stroke with facial droop and right-sided weakness. Has been treated for it since. Patient also CT of the brain did not show any intracranial hemorrhage chest x-ray showed right-sided infiltrate continue to have mildly elevated white blood cell kidney function stabilized to its baseline patient tested negative for influenza RSV and COVID-19. He is currently remain in the ICU responding decent still have right-sided facial droop and weakness. Originally he developed hematemesis was seen general surgery for backup has been doing much better since no further drop in hemoglobin and no active acute GI bleed currently.Last hemoglobin at 9.8 with white blood cell is much better. Blood sugar has been ranging in the low 100. 10/22/2023: Patient remain in the ICU as an overflow, echocardiogram was performed yesterday which showed ejection fraction of 50-55 percentile with mild mitral regurgitation and moderate pulmonary hypertension with PA pressure of 40 mmHg. He is continue to be slightly bit confused, continue to have significant shortness of breath and cough but symptoms are slightly better his pneumonia has been treated well and prepare hopefully for going back to [facility] if she is stable hemodynamically plan probably for discharge in the next 24 to 48 hours. 10/23/2023: He had speech evaluation yesterday and dynamic swallow study with video-assisted swallow the final report is not final he was evaluated by speech still have extremely high and hazard for aspiration which probably would cause the pneumonia in the right side and first place. Still quite bit congested but is moving in the right direction another day of IV antibiotic might be beneficial and useful will be able to switch patient probably to oral antibiotic he is able to take medication orally and switch Plan B to a product like Augmentin as a replacement for his Zosyn for better gram- negative coverage. Still the plan with spinal with speech hopefully patient can return to [facility] next 24 hours. Also patient has lost his right fourth toenail last night he had severe referral toenail fungus with most of his nails are frail and easy to lose he has slight bit of bleeding on the side which has been taking care of but no sign of infection. REVIEW OF SYSTEMS: CONSTITUTIONAL: Elderly mildly overweight laying in bed still have oxygen on in mild respiratory distress. EYES: No icterus sclerae, no conjunctivitis. EARS, NOSE, MOUTH, THROAT, and FACE: No sore throat, lymphadenopathy, carotid bruits or deformity. RESPIRATORY: Has mild shortness of breath mild cough no wheezes. CARDIOVASCULAR: No CP, Palpitation, PND, Orthopnea, or angina. GASTROINTESTINAL: No Abd pain, Nausea or vomiting, no Diarrhea or constipation, No GI Bleed, no distention or masses. GENITOURINARY: Negative for Hematuria or UTI, no kidney stones. INTEGUMENT/BREAST: Negative for any muscular injury with mild osteoarthritis.. HEMATOLOGIC/LYMPHATIC: Negative for bleed or purpura. MUSCULOSKELTAL: Negative for Myalgia or arthralgia. NEURLOGICAL: No LOC, Sz or syncope, blurred vision dizziness or abnormality.. Positive abnormal memory with parkinsonism. BEHAVIORAL/PSYCH: Mild dementia. ENDOCRINE: Negative. PHYSICAL EXAMINATION: General Appearance: Alert, cooperative, mild distress and slight confusion. Neck HEENT: Supple, no lymphadenopathy, no thyroid enlargement, no carotid bruits. Lungs: Decreased breath sound bilaterally especially the right side positive fine rhonchi with crackles spasmodic slight wheezes. Chest Wall: Decreased expansion with deep inspiration no tenderness and no deformity was found on exam, no costochondral pain or discomfort. Heart: Regular rate and rhythm, S1, S2 normal, no murmur, rub or gallop. Back: Symmetric, no curvature, ROM normal, no CVA tenderness. Abdomen: Soft, non-tender, bowel sounds active all four quadrants, no masses, no organomegaly. Extremities: Extremities normal, atraumatic, no cyanosis or edema. Pulses: 2+ and symmetric. Skin: Skin color, texture, tugor normal, no rashes or lesions. Neurologic: Alert oriented x3 cranial nerves II through XII intact, no motor deficit, no abnormal balance or gait. ASSESSMENT AND PLAN: _Acute hypoxic respiratory failure secondary to right-sided pneumonia: Continue oxygen does not require any mechanical ventilation or BiPAP currently doing updraft along with IV antibiotic with Zosyn. _Right-sided pneumonia along with right-sided pleural effusion: Continue aggressive antibiotics culture has been negative so far remain on a single antibiotic with Zosyn no need for right-sided thoracentesis at this point. _Right-sided weakness with most likely stroke no further worsening symptoms at this point patient more stable still seen neurology testing are up-to-date. _Worsening confusion and dementia: Due to combination of dementia from Parkinson disease along with metabolic encephalopathy and hypoxia has improved some but still have slightly with worsening baseline compared to his normal. _Pulmonary hypertension findings on his echocardiogram will continue medical management at this point continue diuretics along with calcium channel parish may be beta-parish. _Valvular heart disease with mild mitral regurgitation still on medical management no intervention required. _Acute kidney injury with creatinine stabilized currently at 1.13 GFR still slightly below continue gentle hydration watch symptoms carefully. _Acute metabolic encephalopathy most likely secondary to acute right-sided pneumonia along with hypoxia continue to watch patient mental status carefully. _Parkinson disease with worsening symptoms related to, remain on carbidopa levodopa continue medication. _Acute hematemesis with acute GI bleed, continue proton pump inhibitor, general surgery backup no need for any further intervention at this point. _BPH: Remain on Proscar 5 mg a day. _Severe GERD continue Protonix. _Severe debility: Request physical therapy increase activity and mobility. CODE STATUS: DO NOT RESUSCITATE. Discussion: Patient was transferred out of ICU with continued doing physical therapy his stump of his right foot and had slight bit of bleeding from the right fourth toe which was stopped at some point. Also was reevaluated again by Neurology and general surgery along with pulmonary and all agree he is stable to be discharged hopefully by tomorrow. Objective - Vital Signs Vital signs: Vital Signs Temp 97.7 F 10/23/23 01:45 Pulse 69 10/23/23 01:45 Resp 18 10/23/23 01:45 BP 134/71 10/23/23 01:45 Pulse Ox 91 L 10/23/23 01:45 FiO2 Intake & Output 10/22/23 10/22/23 10/23/23 06:59 18:59 06:59 Intake Total 500 400 Output Total 780 654 [id number] Balance 100 225 -1900 Weight 105.7 kg 103 kg Intake: IV 500 400 Dextrose 5% in Water 1, 400 400 000 ml @ 50 mls/hr IV . Q20H [facility] Rx#:[id number] Piperacillin-Tazobactam 3 100 .375 gm In Sodium Chloride 0.9% 100 ml @ 25 mls/hr IVPB Q8H [facility] Rx#: [id number] Output: Urine 659 [id number] Uretheral ([place]) 1900 Other: Voiding Method Indwelling Catheter Indwelling Catheter Indwelling Catheter # Bowel Movements 1 1 1 - Labs CBC & Chem 7: 10/24/23 05:30 10/24/23 05:30 Labs: Abnormal Lab Results - Last 24 Hours (Table) 10/22/23 Range/Units 11:53 POC Glucose (mg/dL) 111 H (70-110) mg/dL
--- NOTE | 2023-10-24 12:59 | P.DS ---
Providers Date of admission: 10/18/23 13:41 Attending physician: Han Bueno Consults: 10/18/23 13:41 Consult Physician Urgent Consulting Provider: Jeison Spangler Consult Reason/Comments: hypoxia, pneumonia - possible aspiration Do you want consulting provider notified?: Yes 10/18/23 14:17 Consult Physician Urgent Consulting Provider: Beau Javier Consult Reason/Comments: possible hematemesis Do you want consulting provider notified?: Yes 10/19/23 09:41 Consult Physician Routine Consulting Provider: Chris Pelaez Consult Reason/Comments: poss cva Do you want consulting provider notified?: Yes Primary care physician: Han Bueno [facility] Course: HISTORY OF PRESENT ILLNESS: 78-year-old patient of mine from [facility] seen for the last year he moved from up [facility] with past medical history of parkinsonism, GI bleed, chronic anemia, hypertension, BPH, GERD, chronic kidney disease, chronic psoriasis, debility not been able to ambulate and walk who is currently using wheelchair and probably walker most of the time. He become hypotensive with mild mental status change low-grade temperature chills ended up coming to the hospital found to have hypoxia with low pulse ox blood pressure was quite bit low he was placed urgently on 3.15 mcg of norepinephrine. Originally was diagnosed with acute hypoxic respiratory failure with right-sided pneumonia with acute hypotension from sepsis the following morning found to have slight right- sided weakness consistent with a stroke with facial droop and right-sided weakness. Has been treated for it since. Patient also CT of the brain did not show any intracranial hemorrhage chest x-ray showed right-sided infiltrate continue to have mildly elevated white blood cell kidney function stabilized to its baseline patient tested negative for influenza RSV and COVID-19. He is currently remain in the ICU responding decent still have right-sided facial droop and weakness. Originally he developed hematemesis was seen general surgery for backup has been doing much better since no further drop in hemoglobin and no active acute GI bleed currently.Last hemoglobin at 9.8 with white blood cell is much better. Blood sugar has been ranging in the low 100. 10/22/2023: Patient remain in the ICU as an overflow, echocardiogram was performed yesterday which showed ejection fraction of 50-55 percentile with mild mitral regurgitation and moderate pulmonary hypertension with PA pressure of 40 mmHg. He is continue to be slightly bit confused, continue to have significant shortness of breath and cough but symptoms are slightly better his pneumonia has been treated well and prepare hopefully for going back to [facility] if she is stable hemodynamically plan probably for discharge in the next 24 to 48 hours. 10/23/2023: He had speech evaluation yesterday and dynamic swallow study with video-assisted swallow the final report is not final he was evaluated by speech still have extremely high and hazard for aspiration which probably would cause the pneumonia in the right side and first place. Still quite bit congested but is moving in the right direction another day of IV antibiotic might be beneficial and useful will be able to switch patient probably to oral antibiotic he is able to take medication orally and switch Plan B to a product like Augmentin as a replacement for his Zosyn for better gram- negative coverage. Still the plan with spinal with speech hopefully patient can return to [facility] next 24 hours. Also patient has lost his right fourth toenail last night he had severe referral toenail fungus with most of his nails are frail and easy to lose he has slight bit of bleeding on the side which has been taking care of but no sign of infection. 10/24/2023: Is feeling much better today His hypoxia and cough has improved was evaluated by speech and consistent of still having slight bit of problem might require PICC at some point but will be reevaluated by speech therapy on weekly basis. Watching for aspiration hazard with patient's current condition which seems to have a problem. He is still slightly bit confused function is limited close to his baseline but more stable to be discharged today his antibiotic will be switched from Zosyn to Augmentin for an extra week. REVIEW OF SYSTEMS: CONSTITUTIONAL: Elderly mildly overweight laying in bed still have oxygen on in mild respiratory distress. EYES: No icterus sclerae, no conjunctivitis. EARS, NOSE, MOUTH, THROAT, and FACE: No sore throat, lymphadenopathy, carotid bruits or deformity. RESPIRATORY: Has mild shortness of breath mild cough no wheezes. CARDIOVASCULAR: No CP, Palpitation, PND, Orthopnea, or angina. GASTROINTESTINAL: No Abd pain, Nausea or vomiting, no Diarrhea or constipation, No GI Bleed, no distention or masses. GENITOURINARY: Negative for Hematuria or UTI, no kidney stones. INTEGUMENT/BREAST: Negative for any muscular injury with mild osteoarthritis.. HEMATOLOGIC/LYMPHATIC: Negative for bleed or purpura. MUSCULOSKELTAL: Negative for Myalgia or arthralgia. NEURLOGICAL: No LOC, Sz or syncope, blurred vision dizziness or abnormality.. Positive abnormal memory with parkinsonism. BEHAVIORAL/PSYCH: Mild dementia. ENDOCRINE: Negative. PHYSICAL EXAMINATION: General Appearance: Alert, cooperative, mild distress and slight confusion. Neck HEENT: Supple, no lymphadenopathy, no thyroid enlargement, no carotid bruits. Lungs: Decreased breath sound bilaterally especially the right side positive fine rhonchi with crackles spasmodic slight wheezes. Chest Wall: Decreased expansion with deep inspiration no tenderness and no deformity was found on exam, no costochondral pain or discomfort. Heart: Regular rate and rhythm, S1, S2 normal, no murmur, rub or gallop. Back: Symmetric, no curvature, ROM normal, no CVA tenderness. Abdomen: Soft, non-tender, bowel sounds active all four quadrants, no masses, no organomegaly. Extremities: Extremities normal, atraumatic, no cyanosis or edema. Pulses: 2+ and symmetric. Skin: Skin color, texture, tugor normal, no rashes or lesions. Neurologic: Alert oriented x3 cranial nerves II through XII intact, no motor deficit, no abnormal balance or gait. ASSESSMENT AND PLAN: _Acute hypoxic respiratory failure secondary to right-sided pneumonia: Continue oxygen does not require any mechanical ventilation or BiPAP currently doing updraft along with IV antibiotic with Zosyn. _Right-sided pneumonia along with right-sided pleural effusion: Continue aggressive antibiotics culture has been negative so far remain on a single antibiotic with Zosyn no need for right-sided thoracentesis at this point. _CVA/TIA: Right-sided weakness with most likely stroke no further worsening symptoms at this point patient more stable still seen neurology testing are up-to-date. _Worsening confusion and dementia: Due to combination of dementia from Parkinson disease along with metabolic encephalopathy and hypoxia has improved some but still have slightly with worsening baseline compared to his normal. _Pulmonary hypertension findings on his echocardiogram will continue medical management at this point continue diuretics along with calcium channel parish may be beta-parish. _Valvular heart disease with mild mitral regurgitation still on medical management no intervention required. _Acute kidney injury with creatinine stabilized currently at 1.13 GFR still slightly below continue gentle hydration watch symptoms carefully. _Acute metabolic encephalopathy most likely secondary to acute right-sided pneumonia along with hypoxia continue to watch patient mental status carefully. _Parkinson disease with worsening symptoms related to, remain on carbidopa levodopa continue medication. _Acute hematemesis with acute GI bleed, continue proton pump inhibitor, general surgery backup no need for any further intervention at this point. _BPH: Remain on Proscar 5 mg a day. _Severe GERD continue Protonix. _Severe debility: Request physical therapy increase activity and mobility. CODE STATUS: DO NOT RESUSCITATE. Discussion: Was reevaluated again was reevaluated again today is doing much better we will continue reassessment and evaluation by speech therapy weekly, in the meanwhile patient to eat and drink while his sitting up mostly. He will be stable to be returning back to [facility] today. Hospital course: He presented to the emergency department on 10/18/2023 with an episode of severe hypoxia with significant mental status change with low-grade temperature found to have low pulse ox he was hypotensive as well was placed on norepinephrine IV transferred to the ICU continue on higher flow O2 along with BiPAP. Testing at the time with brain CAT scan did not show any intracranial hemorrhage, chest x- ray showed right-sided infiltrate with significantly elevated white blood cell RSV COVID were negative. Patient was maintained in the ICU but he developed to have slight droopy face and worsening right-sided weakness diagnosed with CVA at the time neurology were consulted also patient had an episode of hematic emesis brought on general surgery I was covering GI service at the time and patient continued to be stable did not require any urgent EGD or testing. Echocardiogram was performed showed ejection fraction of 50-55 percentile with mild mitral regurgitation. Moderate pulmonary hypertension with PA pressure of 40 mmHg. Continue to be quite bit confused his droopy face and right side we akness was evaluated by neurology and continue to believe this is TIA with NIH score of 1 just kept having slight residual with facial droop most likely chronic in nature. He developed to have significant swallowing problem with higher hazard for aspiration was evaluated by speech therapy and had dynamic swallow study and barium swallow felt to be safe to continue oral feeding with caution to be evaluated by speech therapy on more regular basis. Patient developed to have worsening dementia with worsening encephalopathy. Switching his IV antibiotics from Zosyn to oral Augmentin patient to be continue on oral antibiotic for 7 days is more stable to be transferred back to [facility] today on 10/24/2023. Time spending on patient discharge was over 35 minutes. Patient Condition at Discharge: Serious Plan - Discharge Summary Discharge Rx Participant: No New Discharge Prescriptions: New Aspirin 81 mg PO DAILY #0 tab Amoxic-Pot Clav 500-125 mg [Augmentin 500-125 mg] 1 tab PO Q12HR #14 tab Continue Promethazine Hcl Injection Solution 25 mg IM Q6H PRN PRN Reason: Nausea And Vomiting Na Phos,M-B/Na Phos,Di-Ba [Fleet Adult] 133 ml RECTAL DAILY PRN PRN Reason: Constipation lisinopriL [Zestril] 5 mg PO DAILY@0800 Potassium Chloride ER [K-Dur 10] 10 meq PO MOWEFR@0800 Carbidopa-Levodopa 25-100 mg [Sinemet 25-100 mg] 2 tab PO TID@0800,1400,2100 Furosemide [Lasix] 20 mg PO MOWEFR@1400 Finasteride [Proscar] 5 mg PO HS Midodrine [ProAmatine] 5 mg PO BID@0800,1700 Omeprazole [PriLOSEC] 20 mg PO DAILY@0800 bisacodyL [Dulcolax] 10 mg RECTAL DAILY PRN PRN Reason: Constipation Magnesium Hydroxide [Milk of Magnesia Concentrate] 7,200 ml PO DIRECTED PRN PRN Reason: 2 days no BM polyethylene glycoL 3350 [Miralax] 17 gm PO DAILY@0800 guaiFENesin [guaiFENesin Oral Solution] 100 mg PO Q4H PRN PRN Reason: Cough Pantoprazole [Protonix] 40 mg PO DAILY@0800 risperiDONE [RisperDAL] 0.25 mg PO BID@0800,1700 Discontinued Azithromycin [Zithromax Z Pack] See Taper PO DIRECTED@1200 Discharge Medication List Carbidopa-Levodopa 25-100 mg [Sinemet 25-100 mg] 2 tab PO TID@0800,1400,2100 08/09/23 [History] Finasteride [Proscar] 5 mg PO HS 08/09/23 [History] Furosemide [Lasix] 20 mg PO MOWEFR@1400 08/09/23 [History] Magnesium Hydroxide [Milk of Magnesia Concentrate] 7,200 ml PO DIRECTED PRN 08/09/23 [History] Na Phos,M-B/Na Phos,Di-Ba [Fleet Adult] 133 ml RECTAL DAILY PRN 08/09/23 [History] Potassium Chloride ER [K-Dur 10] 10 meq PO MOWEFR@0808/09/23 [History] Promethazine Hcl Injection Solution 25 mg IM Q6H PRN 08/09/23 [History] bisacodyL [Dulcolax] 10 mg RECTAL DAILY PRN 08/09/23 [History] guaiFENesin [guaiFENesin Oral Solution] 100 mg PO Q4H PRN 08/09/23 [History] lisinopriL [Zestril] 5 mg PO DAILY@0808/09/23 [History] polyethylene glycoL 3350 [Miralax] 17 gm PO DAILY@0808/09/23 [History] Midodrine [ProAmatine] 5 mg PO BID@0800,1700 10/18/23 [History] Omeprazole [PriLOSEC] 20 mg PO DAILY@0810/18/23 [History] Pantoprazole [Protonix] 40 mg PO DAILY@0810/18/23 [History] risperiDONE [RisperDAL] 0.25 mg PO BID@0800,1700 10/18/23 [History] Amoxic-Pot Clav 500-125 mg [Augmentin 500-125 mg] 1 tab PO Q12HR #14 tab 10/24/23 [Rx] Aspirin 81 mg PO DAILY #0 tab 10/24/23 [Rx] Follow up Appointment(s)/Referral(s): Han Bueno MD [Primary Care Provider] - 1-2 days Evelyne Cintron [NON-STAFF] - As Needed Discharge Disposition: TRANSFER TO SNF/ECF
[2023-10-24 15:03] VITALS: BP 116/64; PULSE 65; RESP 16; TEMP 98.4
--- NOTE | 2023-10-24 15:03 | P.PN ---
Subjective Progress Note Date: 10/24/23 78-year-old male seen in the emergency department, on October 17. He apparently came in from the halfway, with mental status changes. He was brought in by EMS. The patient has a history of Parkinson's disease, GI bleed, gastroesophageal reflux disease, hypertension, chronic kidney disease. The pa laury was seen the day before in the emergency department, for possible hematemesis, labs are stable, his blood pressure was normal, and he was discharged. At [facility], he apparently became hypotensive, with mental status changes, and low saturations, and he was brought back to the emergency departm ent. I was called, from the hospital service, yesterday, about this patient. He was on the floor, as a DNR patient, was apparently hypotensive despite fluid resuscitation, and the patient was transferred to the intensive care unit, for possible norepinephrine administration. Initially, according to the charge nurse in the ICU, the patient did not require norepinephrine. At about midnight, the patient's blood pressure dropped, and he was placed on 3.15 mcg/min of norepinephrine, from midnight to 6:30 AM. This morning, the nurse who has the patient, noted that the patient had a right facial droop, and right upper extremity weakness. The right lower extremity was contracted chronically. He does have a chronic tremor because of his Parkinson's. It is not clear whether or not these changes are new or old, so therefore a code stroke was called. Chest x-ray on admission shows a possible right lower lobe pneumonia. Brain CT this morning, shows no acute intracranial process. There is prominent atrophy, with a chronic appearing patchy white matter ischemic changes. Angiography CT showed no flow-limiting stenotic areas. White count 8.9, hemoglobin 10.3, hematocrit 33.5, and platelet count 211,000. Sodium 144, potassium 4.2, chlorides 119, CO2 21, BUN 45, creatinine 1.03. Calcium is 7.7. He tested negative for influenza, RSV, and coronavirus." Patient was seen and examined in the ICU on October 19. Patient was noted to have some right facial droop and right upper extremity weakness yesterday however head CT showed no acute intracranial processes. Patient was alert today, not in acute distress. He is not tolerating oral intake. His O2 sat is 91% at 3L via Nasal cannula. He is receiving D5W at 50 mls/hr. No updated labs from today. Labs on 10/18 showed White count 8.9, hemoglobin 10.3, hematocrit 33.5, platelet count 211,000, sodium 144, potassium 4.2, chlorides 119, CO2 21, BUN 45 , creatinine 1.03, Calcium 7.7. Chest X ray performed on 10/19 showed no acute findings. Neurology saw the patient yesterday and noted the patient to have some residual left facial droop, which is likely chronic in nature. On 10/21/2023, the patient is being seen for a follow-up. The patient has advanced Parkinson disease with cognitive impairments. The patient is currently being treated for pneumonia. He is unable to swallow and he has declined PEG tube insertion for feeding and nutritional support. His swallow mechanism is poor. He does have some adequate cough. Unable to bring up much of sputum. No significant respiratory distress on today's evaluation the patient is currently onOxygen at 3 L/min nasal cannula with pulse ox of 94%. He is afebrile and hemodynamically stable. In terms of antibiotic coverage, the patient remains on IV Zosyn. A repeat chest x-ray was done today and it showed essentially multifocal airspace disease in the right lung. No evidence of any pneumothorax. The patient also had an echocardiogram this morning that showed a preserved e jection fraction of 55 to 60%, mild pulm hypertension with an estimated PA pressure of around 40. No evidence of any pericardial effusion. The white cell count is 7.3 with hemoglobin 9.8 and a platelet count of 182. BUN is 25 with a creatinine of 1.1 and a sodium level of 141. He is communicating. Unable to take any of his oral medications because of his poor swallow. Another swallow evaluation is to be done today. Meanwhile, the patient remains on D5 water as the patient was not having episodes of hypoglycemia. He is not taking any form of sulfonylureas or insulin at this point in time. On today's evaluation on 10/22/2023 patient is being seen for a follow-up. The patient had a another swallow evaluation the patient was cleared for a pured diet. His respiratory status is stable. No major respite difficulties for now. Pulse ox 93% with oxygen by nasal cannula. No new labs are available from today. Labs from yesterday was noted. The patient remains on broad-spectrum antibiotics covering for aspiration pneumonia. The patient is currently on IV Rocephin. The echocardiogram was performed yesterday the patient was found to have a preserved LV function with an ejection fraction of 55 to 60%. Mild elevation of the pulmonary artery pressures estimated to be at 40. Neur ologically, the patient is significant cognitive impairment and dementia and significant psychomotor slowing secondary to Parkinson disease. No reported nausea vomiting or emesis. No pressors. Hemodynamically stable. On 10/23/2023, the patient is being seen for a follow-up. The patient is essenti ally stable. The patient was moved out of the intensive care unit yesterday. On today's evaluation, no interval worsening shortness of breath. He remains on 2 L of oxygen by nasal cannula. He is afebrile. No reported aspiration. Tolerating pured diet. Remains on D5 water at rate of 50. No hypoglycemias. On 10/24/2023, the patient's condition is unchanged. Resting comfortably in bed. Tolerating diet and is being fed by the nurses aides. Respiratory status is unchanged. Remains on IV Zosyn. No other significant events overnight. White cell count is at 7.6 with a hemoglobin of 0.9 and a platelet count of 202. Sodium is at 147, bicarb is at 21 with a BUN of 15 and a creatinine of 1.1. Rest of the medications remain unchanged. The patient is on D5 water at rate of 50 cc an hour. No hypoglycemic events. Blood sugars are adequate for now. Objective - Vital Signs Vital signs: Vital Signs Temp 98.6 F 10/24/23 06:56 Pulse 79 10/24/23 06:56 Resp 19 10/24/23 06:56 BP 129/79 10/24/23 06:56 Pulse Ox 93 L 10/24/23 06:56 FiO2 Intake & Output 10/23/23 10/24/23 10/24/23 18:59 06:59 18:59 Output Total 450 Balance -450 Weight 103 kg 104.2 kg Output: Urine 450 Other: Voiding Method Indwelling Catheter - Exam General: Not in acute distress. Patient on 3L Oxygen via nasal cannula. Calm and comfortable and there are no signs of any significant respiratory distress HEENT: Unremarkable. The mucous membranes are dry Cardiovascular: Cardiac exam revealed the PMI to be normally situated and sized. The rhythm was regular and no extrasystoles were noted during several minutes of auscultation. The first and second heart sounds were normal and physiologic splitting of the second heart sound was noted. There were no murmurs, rubs, clicks, or gallops. Respiratory: Mild rhonchi. No wheezing or crackles. O2 sat at 91% on 3L Oxygen via nasal cannula. Abdominal: Soft, nondistended, nontender to palpation. Extremities: Examination of the extremities revealed easily palpable radial, femoral and pedal pulses. There was no cyanosis, clubbing or edema. Skin: No rash or lesions. Musculoskeletal: Decreased right lower extremity strength compare to the left. The patient has chronic rigidity and some resting tremors. Generalized weakness and debility and the patient is nonambulatory at this point in time. - Labs CBC & Chem 7: 10/24/23 05:30 10/24/23 05:30 Labs: Abnormal Lab Results - Last 24 Hours (Table) 10/24/23 10/24/23 Range/Units 05:30 05:30 RBC 3.61 L (4.40-5.60) X 10*6/uL Hgb 9.9 L (13.0-17.0) g/dL Hct 31.0 L (39.6-50.0) % MCHC 31.9 L (32.0-37.0) g/dL RDW 17.2 H (11.5-14.5) % Immature Gran # 0.06 H (0.00-0.04) X 10*3/uL Lymphocytes # 0.80 L (0.90-5.00) X 10*3/uL Sodium 147 H (135-145) mmol/L Chloride 112 H (96-109) mmol/L Carbon Dioxide 21.4 L (21.6-31.8) mmol/L Anion Gap 13.60 H (4.00-12.00) mmol/L Calcium 8.1 L (8.7-10.3) mg/dL Assessment and Plan Plan: Acute hypoxemic respiratory failure, secondary to right-sided pneumonia. The patient has multifocal airspace disease involving the right lung. The patient is currently on IV Zosyn. Suspect aspiration based on his neurologic impairment secondary to advanced Parkinson's disease. Poor swallow mechanism. Repeat swallow evaluation was done and the patient is currently being offered pured diet. Acute hypotension, possibly related to underlying sepsis. Hemodynamically stable and the patient is currently off pressors, recovered History of Parkinson's disease. Significant neuromuscular weakness, rigidity, tremors and cognitive impairment Possible new neurologic findings, including right facial droop, and right upper extremity weakness. History of gastroesophageal reflux disease. History of GI bleed. History of erosive esophagitis. History of hypertension. Hypoglycemia the patient is currently on D5 water. The patient has been having episodes of hypoglycemia which is a reflection of his underlying malnourished state and possibly poor hepatic glycogen stores Plan: Overall condition is stable and unchanged compared to yesterday Overall respiratory status is stable and the patient is currently on 2 L of oxygen by nasal cannula The patient is a DO NOT RESUSCITATE patient. Aspiration precautions. No episodes of hypoglycemia the patient will be kept on D5 water at rate of 50 cc an hour Advance diet as tolerated and the patient is being fed by the nurse 8 The patient is considered to be malnourished as the patient is having episodes of hypoglycemia. This is probably a reflection of the poor glycogen store. The patient is currently on Zosyn for pneumonia and the patient committed to oral antibiotics at the time of discharge. Neurology saw patient yesterday and noted the patient to have some left facial droop, which is likely chronic in nature. Brain CT and CTA of head and neck performed yesterday which showed normal findings. The patient is currently on the medical floor. Monitor prognosis poor based on this significant neurologic impairment and Parkinson disease and dementia. We will continue to follow. The plan is to discharge patient back to the [facility] home the next 24 to 48 hours. DNR/DNI CODE STATUS.
--- NOTE | 2023-10-24 15:09 | P.PN ---
Progress Note - Text Progress Note Date: 10/24/23 Pt Seen and Examined. NAEO. No further episodes of hematemesis VSS General-NAD Abdomen-soft, NTND 78-year-old male with concern for hematemesis -no signs of bleeding -continue to monitor Hgb -ok for diet Isaac Vaughn DO [facility] [phone]
== END 2023-10-24 15:26 | DRG 871 ==
LOC: EC 08:33 → 3SCARD 13:41 → 2SICU 19:35 → 4SSUR 10-22 16:53
PROVIDERS: ADMIT Internal Medicine Geriatric Medicine; ATTEND Internal Medicine Geriatric Medicine
DX: A41.9 Sepsis, unspecified organism (principal); G92.8 Other toxic encephalopathy; I63.9 Cerebral infarction, unspecified; J69.0 Pneumonitis due to inhalation of food and vomit; J96.01 Acute respiratory failure with hypoxia; K92.0 Hematemesis; N17.9 Acute kidney failure, unspecified; G81.91 Hemiplegia, unspecified affecting right dominant side; D64.9 Anemia, unspecified; F02.80 Dementia in other diseases classified elsewhere, unspecified severity, without behavioral disturbance, psychotic disturbance, mood disturbance, and anxiety; G20.A1 Parkinson's disease without dyskinesia, without mention of fluctuations; I95.9 Hypotension, unspecified; L40.9 Psoriasis, unspecified; I12.9 Hypertensive chronic kidney disease with stage 1 through stage 4 chronic kidney disease, or unspecified chronic kidney disease; R65.20 Severe sepsis without septic shock; I27.20 Pulmonary hypertension, unspecified; I34.0 Nonrheumatic mitral (valve) insufficiency; R54 Age-related physical debility; I44.0 Atrioventricular block, first degree; K21.9 Gastro-esophageal reflux disease without esophagitis; N18.9 Chronic kidney disease, unspecified; N40.0 Benign prostatic hyperplasia without lower urinary tract symptoms; R29.701 NIHSS score 1; R29.810 Facial weakness; Z66 Do not resuscitate; Z79.899 Other long term (current) drug therapy; Z87.19 Personal history of other diseases of the digestive system; Z87.891 Personal history of nicotine dependence; Z96.659 Presence of unspecified artificial knee joint; Z99.3 Dependence on wheelchair; Z20.822 Contact with and (suspected) exposure to COVID-19; Z91.81 History of falling
CPT/HCPCS: 36415; 70450; 70496; 70498; 71045; 74230; 80048; 80053; 80061; 82272; 83036; 83605; 83690; 83735; 83880; 84145; 84484; 85025; 85027; 85610; 85730; 87636; 93005; 93306; 96361; 96374; 99285